=== PATIENT | female | born 1940 ===

== ENCOUNTER 2016-10-08 18:33 | Inpatient (IN) | payer MEDICARE, MEDICAID ==
[2016-10-08] MEDS ORDERED: Barium Sulfate Susp 2.1% w/v, 2.0% w/w 450 mL Bottle PO ONE ×3 (19:48)
--- NOTE | 2016-10-08 20:27 | ED PDOC ---
HPI: General Adult Time Seen by Provider: 10/08/16 19:18 Chief Complaint (Nursing): Abdominal Pain Chief Complaint (Provider): Abdominal Pain History Per: Patient History/Exam Limitations: no limitations Onset/Duration Of Symptoms: Days (x4) Current Symptoms Are (Timing): Still Present Additional Complaint(s): 19:18 Delaney Wilhelm is a 76 year old female with a history of IBS, diverticulitis , hypertension, diabetes, high cholesterol, vertigo, and anemia that presents to the ED with a chief complaint of left-sided abdominal pain that radiates to her entire abdomen that she had been experiencing for the last four days, as well as diarrhea that is both bloody and mucus that she has been experiencing for the past three days. She states that she typically usually the bathroom between 4-5 times every day, and that she has had similar episodes that typically only last for a couple of days for the past few months. However, this episode has been significantly worse. Her associated symptoms include lightheadedness, weakness, nausea, loss of appetite, and chills, but denies any fever, vomiting, or urinary symptoms. PMD: Colby Reardon Director Of Planning: Dr. Wilson Past Medical History Reviewed: Historical Data, Nursing Documentation, Vital Signs Vital Signs: Last Vital Signs Temp 98.4 F 10/09/16 17:00 Pulse 82 10/09/16 17:00 Resp 20 10/09/16 17:00 BP 126/66 10/09/16 17:00 Pulse Ox 100 10/09/16 17:00 - Medical History PMH: Anxiety, Arthritis, Asthma, COPD, Diabetes (Type II), Diverticulitis, Emphysema, Gastritis, GERD, HTN, Hypercholesterolemia, Migraine, Osteoporosis Denies: Chronic Kidney Disease - Surgical History Surgical History: Cholecystectomy, - Family History Family History: States: Unknown Family Hx - Home Medications Home Medications: Ambulatory Orders Medication Instructions Recorded Albuterol 0.083% [Albuterol 3 ml IH TID 02/13/16 Sulfate 3 Ml] Alprazolam [Xanax] 0.5 mg PO PRN PRN 02/13/16 Capsaicin 42.5 gm TP DAILY #1 cream..g. 02/13/16 Hyoscyamine [Hyoscyamine Sulfate] 0.125 mg PO DAILY 02/13/16 Ipratropium 0.02% [Ipratropium 0.5 mg IH TID 02/13/16 [place] 2.5 Ml] Loperamide [Imodium] 2 mg PO PRN PRN 02/13/16 Meclizine HCl [Antivert/25] 25 mg PO PRN PRN 02/13/16 Mirtazapine [Remeron] 15 mg PO DAILY 02/13/16 Nateglinide [Starlix] 60 mg PO BID 02/13/16 Ranitidine HCl [Zantac] 150 mg PO DAILY 02/13/16 Valsartan [Diovan] 80 mg PO DAILY 02/13/16 cloNIDine [clonidine HCl] 0.1 mg PO DAILY 02/13/16 - Allergies Allergies/Adverse Reactions: Allergies Allergy/AdvReac Type Severity Reaction Status Date / Time aspirin Allergy SHORTNESS Verified 02/13/16 12:33 OF BREATH azithromycin [From Zithromax] Allergy RASH Verified 02/13/16 12:33 budesonide [From Symbicort] Allergy RASH Verified 02/13/16 12:33 calcium Allergy RASH Verified 02/13/16 12:33 ciprofloxacin [From Cipro] Allergy ITCHING Verified 02/13/16 12:33 ciprofloxacin HCl Allergy ITCHING Verified 02/13/16 12:33 [From Cipro] codeine Allergy SHORTNESS Verified 02/13/16 12:33 OF BREATH formoterol fumarate Allergy RASH Verified 02/13/16 12:33 [From Symbicort] iodine Allergy RASH Verified 02/13/16 12:33 latex Allergy RASH Verified 02/13/16 12:33 lidocaine Allergy unknown Verified 02/13/16 12:45 Penicillins Allergy RASH Verified 02/13/16 12:33 Sulfa (Sulfonamide Allergy RASH Verified 02/13/16 12:33 Antibiotics) tetracycline Allergy RASH Verified 02/13/16 12:33 erthromycin Allergy RASH Uncoded 03/20/14 15:48 Review of Systems Constitutional: Positive for: Chills, Weakness. Negative for: Fever Cardiovascular: Positive for: Light Headedness Gastrointestinal: Positive for: Nausea, Abdominal Pain (x4 days, left-sided, spread to entire abdomen), Diarrhea (x3 days). Negative for: Vomiting Genitourinary Female: Negative for: Dysuria, Frequency, Hematuria Neurological: Positive for: Dizziness Physical Exam - Reviewed Nursing Documentation Reviewed: Yes Vital Signs Reviewed: Yes - Physical Exam Appears: Positive for: Non-toxic, Uncomfortable (Patient is very tired appearing ) Head Exam: Positive for: ATRAUMATIC, NORMOCEPHALIC Skin: Positive for: Warm, Dry, Pallor ENT: Positive for: Other (dry mucous membranes ) Cardiovascular/Chest: Positive for: Regular Rate, Rhythm. Negative for: Murmur Respiratory: Positive for: Normal Breath Sounds. Negative for: Wheezing Gastrointestinal/Abdominal: Positive for: Soft, Tenderness (diffusely tender). Negative for: Mass, Distended, Guarding, Rebound Neurologic/Psych: Positive for: Alert, Oriented - Laboratory Results Result Diagrams: 10/09/16 05:30 10/09/16 05:30 - ECG O2 Sat by Pulse Oximetry: 99 (RA) Pulse Ox Interpretation: Normal Medical Decision Making Medical Decision Makin:48 Initial Impression: Abdominal Pain/Diarrhea ddx include Colitis vs. Diverticulitis vs. Enteritis vs. Dehydration vs. Eelectrolyte Abnormality Initial Plan: * CMP * CBC * PT * PTT * Lipase * Magnesium * Phosphorous * Troponin * Glucose, Blood, POC * Urine culture * Urine dipstick * Urinalysis * Ova and Parasite * Stool Culture * C Diff Toxin * Type and Screen * EKG * CT Scan A/P with PO contrast 19:58 Patient is to be admitted to ED Obs secondary to extensive ED workup. Scribe Attestation: Documented by Sybil Joe, acting as a scribe for Christiana Hidalgo MD. Provider Scribe Attestation: All medical record entries made by the Scribe were at my direction and personally dictated by me. I have reviewed the chart and agree that the record accurately reflects my personal performance of the history, physical exam, medical decision making, and the department course for this patient. I have also personally directed, reviewed, and agree with the discharge instructions and disposition. ED OBSERVATION Time of observation admission: 19:58 - Observation admission statement Patient is being placed in observation because:: Patient has been placed in ED Obs secondary to extensive ED workup. - Progress Note Progress Note: EXAM: CT Abdomen and Pelvis Without Intravenous Contrast CLINICAL HISTORY: 76 years old, female; Pain and signs and symptoms; Other: Diarrhea; Abdominal pain; Generalized; Prior surgery; Surgery date: 6+ months; Surgery type: 2 c-sections. Gb removed; Additional info: Abd pain. Sent e. D. Doc. With request TECHNIQUE: Axial computed tomography images of the abdomen and pelvis without intravenous contrast. This CT exam was performed using one or more of the following dose reduction techniques: automated exposure control, adjustment of the mA and/or kV according to patient size, and/ or use of iterative reconstruction technique. Coronal and sagittal reformatted images were created and reviewed. EXAM DATE/TIME: Exam ordered 10/08/2016 7:48 PM COMPARISON: CT - ABD PELVIS PO CONTRAST ONLY 04/30/2015 4:05:29 PM FINDINGS: Lower thorax: Lung bases are clear stable mild nodularity and cystic change in the lingula. Air in the esophagus in keeping with reflux. Small hiatus hernia. ABDOMEN: Liver: Unremarkable. Gallbladder and bile ducts: Status post cholecystectomy. No ductal dilation. Pancreas: Unremarkable. No ductal dilation. Spleen: Unremarkable. No splenomegaly. Adrenals: Unremarkable. No mass. Kidneys and ureters: No ureteral stones are seen noting that punctate stones or noncalcified stones may not be well seen on CT. Stomach and bowel: No abdominal wall hernias containing bowel. Oral contrast was administered. Oral contrast has passed to the rectum, there are no findings to suggest bowel obstruction. There is, allowing for partial collapse, likely wall thickening of the colon, particularly the sigmoid, see for example series 3 image 96. Findings suggest a colitis, diverticulitis may present in a similar fashion, colitis is favored noting suggestion of some possible wall thickening in the more proximal colon. Appendix: No findings to suggest acute appendicitis. PELVIS: Bladder: Unremarkable. No stones. Reproductive: Reproductive. There is redemonstration of a hyperdense cystic finding in the left labial region series 3 image 126, this is minimally increased in size since the study of approximately one and one half years previous. Physical examination correlation is recommended. There is a 16 mm cystic finding in the left ovary coronal image 60, and this previously measured 13 mm. This measures simple fluid density. Annual followup is recommended in this postmenopausal patient, as per guidelines for a simple cyst a greater than 1 cm in a postmenopausal patient , unless there has been previous demonstration that this is not a simple cyst, noted limitations of the present study which is noncontrast and the generally limited detail of CT for the adnexa. ABDOMEN and PELVIS: Intraperitoneal space: No free air. No significant fluid collection. Bones/joints: Bony structures with no acute fractures. No dislocation. Soft tissues: See above. Vasculature: Unremarkable. No abdominal aortic aneurysm. Lymph nodes: There are multiple mesenteric nodes although they do not meet size criteria for pathologic enlargement. Other findings: There is comparison to previous CT dated April 30, 2015. IMPRESSION: Wall thickening particularly of the sigmoid colon, suggestion of colitis although diverticulitis might also present in this fashion. Neoplasm cannot be excluded. A prominent sigmoid diverticulum series 3 image 95 is without change from study of 2015 series 3 image 114. No free air. No ascites. Reproductive as above, current guidelines suggest 1 year followup for simple cyst greater than 1 cm in the adnexa of a postmenopausal female, please note that detail of anatomy is limited on this study which is performed without intravenous contrast . Redemonstration of complex finding in the left labia as above. The absence of intravenous contrast greatly limits evaluation of the parenchymal organs. Thank you for allowing us to participate in the care of your patient. Dictated and Authenticated by: Kitty Casper MD 10/08/2016 11:16 PM Eastern Time ([place] & [place]) Pt to be hospitalized under Dr Reardon for further management. Disposition - Clinical Impression Clinical Impression: Colitis Counseled Patient/Family Regarding: Studies Performed, Diagnosis - Disposition Disposition Time: 20:00 Condition: SERIOUS - Pt Status Changed To: Hospital Disposition Of: Inpatient - Admit Certification Admit to Inpatient:: After my assessment, the patient will require hospitalization for at least two midnights. This is because of the severity of symptoms shown, intensity of services needed, and/or the medical risk in this patient being treated as an outpatient. - POA Present On Arrival: None
[2016-10-08 21:09] LABS: BASO % 0.3 % (0.0-2.0); EOS % 0.3 % (0.0-4.0); HEMATOCRIT 37.9 % (34.0-47.0); LYMPH # 1.1 K/uL (1.0-4.3); LYMPH % 20.1 % (20.0-40.0); MEAN CELL VOLUME 83.9 fl (81.0-99.0); MEAN CORPUSCULAR HEMOGLOBIN 28.2 pg (27.0-31.0); MEAN CORPUSCULAR HGB CONC 33.6 g/dL (33.0-37.0); MONO # 0.3 K/uL (0.0-0.8); MONO % 4.6 % (0.0-10.0); NEUT # 4.2 K/uL (1.8-7.0); NEUT % 74.7 % (50.0-75.0); NRBC % 0.2 % (0.0-0.0); RBC URINE 2 /hpf (0-3); RED CELL DISTRIBUTION WIDTH 13.1 % (11.5-14.5); URINE BACTERIA RARE (<OCC); URINE BILIRUBIN NEGATIVE (NEGATIVE); URINE BLOOD MODERATE (NEGATIVE); URINE GLUCOSE (UA) NEG (Normal); URINE KETONE NEGATIVE (NEGATIVE); URINE LEUKOCYTE ESTERASE NEG Leu/uL (Negative); URINE PROTEIN NEGATIVE (NEGATIVE); URINE UROBILINOGEN 0.2-1.0 mg/dL (0.2-1.0); WBC URINE 1 /hpf (0-5); WHITE BLOOD COUNT 5.6 K/uL (4.8-10.8)
[2016-10-08 21:10] LABS: URINE COLOR YELLOW (YELLOW)
[2016-10-08 21:25] LABS: ALB/GLOB RATIO 1.3 (1.0-2.1); ALKALINE PHOSPHATASE 63 U/L (38-126); ALT/SGPT 37 U/L (9-52); AST/SGOT 34 U/L (14-36); BILIRUBIN,TOTAL 0.8 mg/dl (0.2-1.3); BLOOD UREA NITROGEN 7 mg/dl (7-17); CALCIUM 9.2 mg/dL (8.4-10.2); CARBON DIOXIDE 25 mmol/L (22-30); CHLORIDE 106 mmol/L (98-107); GFR AFRICAN-AMERICAN > 60; GLUCOSE,RANDOM 134 mg/dL (65-105); LIPASE 68 U/L (23-300); PHOSPHOROUS 3.4 mg/dl (2.5-4.5); POTASSIUM 3.5 MMOL/L (3.6-5.0); SODIUM 137 mmol/l (132-148); TOTAL PROTEIN 7.3 G/DL (6.3-8.2)
[2016-10-08 21:26] LABS: PARTIAL THROMBOPLASTIN TIME 25.2 SECONDS (23.3-32.5)
--- NOTE | 2016-10-08 23:17 | CT ---
EXAM: CT Abdomen and Pelvis Without Intravenous Contrast CLINICAL HISTORY: 76 years old, female; Pain and signs and symptoms; Other: Diarrhea; Abdominal pain; Generalized; Prior surgery; Surgery date: 6+ months; Surgery type: 2 c-sections. Gb removed; Additional info: Abd pain. Sent e. D. Doc. With request TECHNIQUE: Axial computed tomography images of the abdomen and pelvis without intravenous contrast. This CT exam was performed using one or more of the following dose reduction techniques: automated exposure control, adjustment of the mA and/or kV according to patient size, and/or use of iterative reconstruction technique. Coronal and sagittal reformatted images were created and reviewed. EXAM DATE/TIME: Exam ordered 10/08/2016 7:48 PM COMPARISON: CT - ABD PELVIS PO CONTRAST ONLY 04/30/2015 4:05:29 PM FINDINGS: Lower thorax: Lung bases are clear stable mild nodularity and cystic change in the lingula. Air in the esophagus in keeping with reflux. Small hiatus hernia. ABDOMEN: Liver: Unremarkable. Gallbladder and bile ducts: Status post cholecystectomy. No ductal dilation. Pancreas: Unremarkable. No ductal dilation. Spleen: Unremarkable. No splenomegaly. Adrenals: Unremarkable. No mass. Kidneys and ureters: No ureteral stones are seen noting that punctate stones or noncalcified stones may not be well seen on CT. Stomach and bowel: No abdominal wall hernias containing bowel. Oral contrast was administered. Oral contrast has passed to the rectum, there are no findings to suggest bowel obstruction. There is, allowing for partial collapse, likely wall thickening of the colon, particularly the sigmoid, see for example series 3 image 96. Findings suggest a colitis, diverticulitis may present in a similar fashion, colitis is favored noting suggestion of some possible wall thickening in the more proximal colon. Appendix: No findings to suggest acute appendicitis. PELVIS: Bladder: Unremarkable. No stones. Reproductive: Reproductive. There is redemonstration of a hyperdense cystic finding in the left labial region series 3 image 126, this is minimally increased in size since the study of approximately one and one half years previous. Physical examination correlation is recommended. There is a 16 mm cystic finding in the left ovary coronal image 60, and this previously measured 13 mm. This measures simple fluid density. Annual followup is recommended in this postmenopausal patient, as per guidelines for a simple cyst a greater than 1 cm in a postmenopausal patient, unless there has been previous demonstration that this is not a simple cyst, noted limitations of the present study which is noncontrast and the generally limited detail of CT for the adnexa. ABDOMEN and PELVIS: Intraperitoneal space: No free air. No significant fluid collection. Bones/joints: Bony structures with no acute fractures. No dislocation. Soft tissues: See above. Vasculature: Unremarkable. No abdominal aortic aneurysm. Lymph nodes: There are multiple mesenteric nodes although they do not meet size criteria for pathologic enlargement. Other findings: There is comparison to previous CT dated April 30, 2015. IMPRESSION: Wall thickening particularly of the sigmoid colon, suggestion of colitis although diverticulitis might also present in this fashion. Neoplasm cannot be excluded. A prominent sigmoid diverticulum series 3 image 95 is without change from study of 2015 series 3 image 114. No free air. No ascites. Reproductive as above, current guidelines suggest 1 year followup for simple cyst greater than 1 cm in the adnexa of a postmenopausal female, please note that detail of anatomy is limited on this study which is performed without intravenous contrast . Redemonstration of complex finding in the left labia as above. The absence of intravenous contrast greatly limits evaluation of the parenchymal organs.
[2016-10-08] MEDS ORDERED: metroNIDAZOLE 500mg/100ml NS 100 ML IV STA (23:56)
[2016-10-09] MEDS ORDERED: metroNIDAZOLE 500mg/100ml NS 100 ML IVPB ONE (00:09)
[2016-10-09] MEDS: Sodium Chloride 0.45% 1,000 ML IV SCH ×2 (03:09→16:19)
[2016-10-09] MEDS: Dextrose 5%/0.45% NS 1,000 ML IV SCH ×2 (03:19→16:17)
[2016-10-09 07:45] LABS: HEMATOCRIT 35.4 % (34.0-47.0); MEAN CELL VOLUME 82.7 fl (81.0-99.0); MEAN CORPUSCULAR HEMOGLOBIN 28.6 pg (27.0-31.0); MEAN CORPUSCULAR HGB CONC 34.6 g/dL (33.0-37.0); RED CELL DISTRIBUTION WIDTH 13.2 % (11.5-14.5); WHITE BLOOD COUNT 5.1 K/uL (4.8-10.8)
[2016-10-09 08:35] LABS: ALB/GLOB RATIO 1.3 (1.0-2.1); ALKALINE PHOSPHATASE 52 U/L (38-126); ALT/SGPT 30 U/L (9-52); AST/SGOT 32 U/L (14-36); BILIRUBIN,TOTAL 0.6 mg/dl (0.2-1.3); BLOOD UREA NITROGEN 6 mg/dl (7-17); CALCIUM 8.9 mg/dL (8.4-10.2); CARBON DIOXIDE 29 mmol/L (22-30); CHLORIDE 104 mmol/L (98-107); CHOLESTEROL 193 mg/dL (0-199); GFR AFRICAN-AMERICAN > 60; GLUCOSE,RANDOM 75 mg/dL (65-105); POTASSIUM 3.1 MMOL/L (3.6-5.0); SODIUM 142 mmol/l (132-148); TOTAL PROTEIN 6.7 G/DL (6.3-8.2)
[2016-10-09 08:50] LABS: T4 10.7 ug/dl (5.5-11.0)
[2016-10-09] MEDS: Albuterol 0.083% Inhal Sol (2.5 mg/3 mL) UD IH SCH ×3 (08:56→19:16)
[2016-10-09] MEDS: Ipratropium 0.02% Inhal Soln (0.5 mg/2.5 ml) UD IH SCH ×3 (08:57→19:15)
[2016-10-09] MEDS ORDERED: Ipratropium 0.02% Inhal Soln (0.5 mg/2.5 ml) UD IH SCH (09:00)
[2016-10-09 09:03] LABS: THYROID STIMULATING HORMONE 1.58 mIU/ML (0.46-4.68)
[2016-10-09] MEDS: metroNIDAZOLE 500mg/100ml NS 100 ML IVPB SCH ×2 (09:53→17:02)
--- NOTE | 2016-10-09 11:22 | CARD ---
APPROVED REPORT EKG Measurement Heart [id number] <Conclusion> Normal sinus rhythm Minimal voltage criteria for LVH, may be normal variant Borderline ECG
--- NOTE | 2016-10-09 20:06 | CP.PCM.HP ---
History of Present Illness - History of Present Illness History of Present Illness: CC: Abdominal pain. 76 y/o F, came to ER [facility] to be evaluated for abdominal pain x several days, pain has been getting progressively worse x 4 days [employer]. 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 Mild relief with BM. Worsening symptoms: Weakness, lightheadedness, dizziness, chills, no fever. Aggravating factor: Unable to eat, Lost of appetite, underweight BMI 18.4 Pt denied: Fever, vomiting, syncope, urinary symptoms, CP, sick contact, recent travel. PMHx: COPD, Asthma, Emphysema, DMII, HTN, Hypercholesterolemia, GERD, IBS, Anxiety, Vertigo, Anemia, Hx Diverticulitis, O/A, Osteoporosis, Migraine. CT Abdomen/Pelv showed: Suggestion of Colitis vs Diverticulitis, Neoplasm not be excluded. EKG: Normal sinus rhythm Present on Admission - Present on Admission Any Indicators Present on Admission: No Review of Systems - Constitutional Constitutional: Chills, Weakness - EENT Eyes: Requires Corrective Lenses Ears: Other (negative) Nose/Mouth/Throat: Other (negative) - Cardiovascular Cardiovascular: Lightheadedness, Other - Respiratory Respiratory: Cough - Gastrointestinal Gastrointestinal: Abdominal Pain, Diarrhea, Loose Stools, Nausea - Genitourinary Genitourinary: Other (negative) - Musculoskeletal Musculoskeletal: Arthralgias - Integumentary Integumentary: Other (negative) - Neurological Neurological: Dizziness, Weakness - Psychiatric Psychiatric: Anxiety - Endocrine Endocrine: Other (Underweight) - Hematologic/Lymphatic Hematologic: Other (anemia.) Past Patient History - Infectious Disease Hx of Infectious Diseases: None - Past Medical History & Family History Past Medical History?: Yes Pertinent Family History: Unknown - Past Social History Smoking Status: Never Smoked Alcohol: None Drugs: Denies Home Situation {Lives}: Alone - CARDIAC Hx Cardiac Disorders: Yes Hx Hypercholesterolemia: Yes Hx Hypertension: Yes - PULMONARY Hx Respiratory Disorders: Yes Hx Asthma: Yes Hx Chronic Obstructive Pulmonary Disease (COPD): Yes Hx Emphysema: Yes - NEUROLOGICAL Hx Neurological Disorder: Yes Hx Migraine: Yes - HEENT Hx HEENT Problems: Yes Other/Comment: Uses eyeglasses - RENAL Hx Chronic Kidney Disease: No - ENDOCRINE/METABOLIC Hx Endocrine Disorders: Yes Hx Diabetes Mellitus Type 2: Yes - HEMATOLOGICAL/ONCOLOGICAL Hx Blood Disorders: Yes Hx Anemia: Yes - INTEGUMENTARY Hx Dermatological Problems: No - MUSCULOSKELETAL/RHEUMATOLOGICAL Hx Musculoskeletal Disorders: Yes Hx Arthritis: Yes Hx Osteoporosis: Yes - GASTROINTESTINAL Hx Gastrointestinal Disorders: Yes Hx Diarrhea: Yes Hx Diverticulitis: Yes Hx Gastritis: Yes Hx Gastroesophageal Reflux: Yes Hx Irritable Bowel: Yes - GENITOURINARY/GYNECOLOGICAL Hx Genitourinary Disorders: No - PSYCHIATRIC Hx Psychophysiologic Disorder: Yes Hx Anxiety: Yes - SURGICAL HISTORY Hx Surgeries: Yes Hx Cholecystectomy: Yes - ANESTHESIA Hx Anesthesia: Yes Hx Anesthesia Reactions: No Hx Malignant Hyperthermia: No Meds Allergies/Adverse Reactions: Allergies Allergy/AdvReac Type Severity Reaction Status Date / Time aspirin Allergy SHORTNESS Verified 02/13/16 12:33 OF BREATH azithromycin [From Zithromax] Allergy RASH Verified 02/13/16 12:33 budesonide [From Symbicort] Allergy RASH Verified 02/13/16 12:33 calcium Allergy RASH Verified 02/13/16 12:33 ciprofloxacin [From Cipro] Allergy ITCHING Verified 02/13/16 12:33 ciprofloxacin HCl Allergy ITCHING Verified 02/13/16 12:33 [From Cipro] codeine Allergy SHORTNESS Verified 02/13/16 12:33 OF BREATH formoterol fumarate Allergy RASH Verified 02/13/16 12:33 [From Symbicort] iodine Allergy RASH Verified 02/13/16 12:33 latex Allergy RASH Verified 02/13/16 12:33 lidocaine Allergy unknown Verified 02/13/16 12:45 Penicillins Allergy RASH Verified 02/13/16 12:33 Sulfa (Sulfonamide Allergy RASH Verified 02/13/16 12:33 Antibiotics) tetracycline Allergy RASH Verified 02/13/16 12:33 erthromycin Allergy RASH Uncoded 03/20/14 15:48 Physical Exam - Constitutional Appears: No Acute Distress, Chronically Ill - Head Exam Head Exam: NORMAL INSPECTION - Eye Exam Eye Exam: PERRL - ENT Exam ENT Exam: Normal Oropharynx - Neck Exam Neck exam: Positive for: Normal Inspection - Respiratory Exam Respiratory Exam: NORMAL BREATHING PATTERN - Cardiovascular Exam Cardiovascular Exam: REGULAR RHYTHM - GI/Abdominal Exam GI & Abdominal Exam: Normal Bowel Sounds - Extremities Exam Extremities exam: Positive for: normal inspection - Back Exam Back exam: NORMAL INSPECTION - Neurological Exam Neurological exam: Alert, Oriented x3 Additional comments: No motor sensory deficit - Psychiatric Exam Psychiatric exam: Anxious - Skin Skin Exam: Warm Results - Vital Signs Recent Vital Signs: Last Vital Signs Temp 98.4 F 10/09/16 17:00 Pulse 82 10/09/16 17:00 Resp 20 10/09/16 17:00 BP 126/66 10/09/16 17:00 Pulse Ox 99 10/09/16 18:51 reviewed Trae - Labs Result Diagrams: 10/11/16 12:15 10/11/16 12:15 Labs: Laboratory Results - last 24 hr 10/09/16 10/09/16 10/09/16 05:30 05:30 06:31 WBC 5.1 RBC 4.28 Hgb 12.3 Hct 35.4 MCV 82.7 MCH 28.6 MCHC 34.6 RDW 13.2 Plt Count 191 Sodium 142 Potassium 3.1 L Chloride 104 Carbon Dioxide 29 Anion Gap 12 BUN 6 L Creatinine 0.6 L Est GFR ( Amer) > 60 Est GFR (Non-Af Amer) > 60 POC Glucose (mg/dL) 85 Random Glucose 75 Calcium 8.9 Total Bilirubin 0.6 AST 32 ALT 30 Alkaline Phosphatase 52 Total Protein 6.7 Albumin 3.8 Globulin 2.9 Albumin/Globulin Ratio 1.3 Triglycerides 123 Cholesterol 193 LDL Cholesterol Direct 120 HDL Cholesterol 46 Thyroxine (T4) 10.7 TSH 3rd Generation 1.58 Stool Occult Blood C. difficile Ag & Toxin 10/09/16 10/09/16 10/09/16 10:30 10:47 11:30 WBC RBC Hgb Hct MCV MCH MCHC RDW Plt Count Sodium Potassium Chloride Carbon Dioxide Anion Gap BUN Creatinine Est GFR ( Amer) Est GFR (Non-Af Amer) POC Glucose (mg/dL) 139 H Random Glucose Calcium Total Bilirubin AST ALT Alkaline Phosphatase Total Protein Albumin Globulin Albumin/Globulin Ratio Triglycerides Cholesterol LDL Cholesterol Direct HDL Cholesterol Thyroxine (T4) TSH 3rd Generation Stool Occult Blood Positive H C. difficile Ag & Toxin Positive H 10/09/16 15:41 WBC RBC Hgb Hct MCV MCH MCHC RDW Plt Count Sodium Potassium Chloride Carbon Dioxide Anion Gap BUN Creatinine Est GFR ( Amer) Est GFR (Non-Af Amer) POC Glucose (mg/dL) 105 Random Glucose Calcium Total Bilirubin AST ALT Alkaline Phosphatase Total Protein Albumin Globulin Albumin/Globulin Ratio Triglycerides Cholesterol LDL Cholesterol Direct HDL Cholesterol Thyroxine (T4) TSH 3rd Generation Stool Occult Blood C. difficile Ag & Toxin reviewed J.P. - EKG Data EKG comments: reviewed J.P. - Imaging and Cardiology CT scan - abdomen Status: Report reviewed by me (Trae) CT scan - pelvis Status: Report reviewed by me (Trae) Assessment & Plan (1) Abdominal pain Status: Acute Priority: High (2) Colitis Status: Acute Priority: High Comment: vs acute Diverticulitis, ruled out malignancy. (3) IBS (irritable bowel syndrome) Status: Chronic Priority: High (4) Anxiety Status: Chronic Priority: Medium (5) COPD (chronic obstructive pulmonary disease) Status: Chronic Priority: Medium (6) DMII (diabetes mellitus, type 2) Status: Chronic Priority: Medium (7) Hypertension Status: Chronic Priority: Medium - Assessment and Plan (Free Text) Plan: F/U Blood C-S, Stool C-S, Ova & Parasite, continue Flagyl, Protonix, Albuterol, Atrovent, Tylenol and rest of Tx. F/U GI consult. - Date & Time Date: 10/09/16 Time: 14:30
[2016-10-09] MEDS ORDERED: guaiFENesin DM 200 mg-20 mg/10 ml UD PO PRN (20:20)
--- NOTE | 2016-10-09 21:04 | CON ---
DATE: 10/09/2016 REFERRING PHYSICIAN: Colby Reardon M.D. HISTORY OF PRESENT ILLNESS: The patient is a 76-year-old female with a history of diabetes mellitus, hypertension, hypercholesterolemia, diverticulitis, IBSD, admitted with a several day hist ory of lower abdominal pain associated with diarrhea, at times blood tinged. A CT of the abdomen don e upon evaluation in the Emergency Room showed the possibility of mild colitis versus diverticulitis. Underlying malignancy also could not be entirely excluded. The patient at present is doing better. Denies abdominal pain, fever or chills, nausea or vomiting and has been started on IV Flagyl. PAST MEDICAL HISTORY: As stated before. PAST SURGICAL HISTORY: Positive for cholecystectomy. SOCIAL HISTORY: No ETOH, no IVDA, no tobacco use. FAMILY HISTORY: Noncontributory. REVIEW OF SYSTEMS: All systems were reviewed and negative except for pertinent positives in the hist ory of present illness. LABORATORY DATA: Reviewed. White count remains within normal limits. No left shift appreciated. C hemistry is unremarkable. PHYSICAL EXAMINATION: GENERAL: She is awake, alert, in no apparent distress. VITAL SIGNS: Stable, afebrile. HEENT: Normocephalic, atraumatic. Extraocular muscles are intact. Pupils equal, react to light and accommodation. NECK: No JVD, no neck masses. HEART: Auscultation of the heart, S1 and S2 with no murmur or gallop. LUNGS: Clear. ABDOMEN: Soft and nontender. Bowel sounds are positive. There is no guarding, no rebound. EXTREMITIES: No edema, cyanosis or clubbing. RECTAL: Deferred. NEUROLOGIC: Cranial nerves II-XII are intact. There are no focal sensory deficits. IMPRESSION: Acute mild colitis versus mild diverticulitis, rule out underlying malignancy. I agree with present management. Will add gram-negative , but the PATIENT IS ALLERGIC TO MULTIPLE MEDIC ATIONS. ID could be consulted to add gram-negative to Flagyl and the patient in my opinion can be discharged on a 10-day course of on p.o. antibiotics pending stool culture. I will follow up in the office as an outpatient and schedule a colonoscopy as an outpatient. Thank you for allowing me to participate in the care of your patient. I will sign off and see the larisa abrams at your request as needed. Giovani Wilson MD cc: 97 TT: 10/09/2016 21:03:51 Confirmation # [id number] Dictation # [id number]
[2016-10-10] MEDS: metroNIDAZOLE 500mg/100ml NS 100 ML IVPB SCH ×3 (01:13→16:16)
[2016-10-10] MEDS: Albuterol 0.083% Inhal Sol (2.5 mg/3 mL) UD IH SCH ×3 (08:18→19:27)
[2016-10-10] MEDS: Ipratropium 0.02% Inhal Soln (0.5 mg/2.5 ml) UD IH SCH ×3 (08:19→19:27)
--- NOTE | 2016-10-10 16:49 | CP.PCM.PN ---
Subjective - Date & Time of Evaluation Date of Evaluation: 10/10/16 - Subjective Subjective: F/U Pt with no abdominal pain, no diarrhea, having SOB last night. Objective - Vital Signs/Intake and Output Vital Signs (last 24 hours): Temp Pulse Resp BP Pulse Ox 97.7 F 74 18 137/66 100 10/10/16 07:52 10/10/16 07:52 10/10/16 07:52 10/10/16 07:52 10/10/16 07:52 - Medications Medications: Current Medications Acetaminophen (Tylenol 325mg Tab) 650 mg PO Q4 PRN PRN Reason: Pain, Mild (1-3) Last Admin: 10/10/16 06:56 Dose: 650 mg Albuterol Sulfate (Albuterol 0.083% Inhal Tila (2.5 Mg/3 Ml) Ud) 2.5 mg IH TID [facility] Last Admin: 10/10/16 13:27 Dose: 2.5 mg Alprazolam (Xanax) 0.5 mg PO BID [facility] Last Admin: 10/10/16 16:15 Dose: 0.5 mg Guaifenesin/Dextromethorphan (Robitussin Dm) 10 ml PO Q4 PRN PRN Reason: Cough Metronidazole (Flagyl 500mg/100ml Ns) 100 mls @ 100 mls/hr IVPB Q8 [facility] Last Admin: 10/10/16 16:16 Dose: 100 mls/hr Ipratropium [place] (Atrovent) 0.5 mg IH RTID [facility] Last Admin: 10/10/16 13:28 Dose: 0.5 mg Pantoprazole Sodium (Protonix Inj) 40 mg IVP DAILY [facility] Last Admin: 10/10/16 08:48 Dose: 40 mg Valsartan (Diovan) 80 mg PO BID [facility] Last Admin: 10/10/16 16:16 Dose: 80 mg - Labs Labs: 10/09/16 05:30 10/09/16 05:30 PT 10.5 SECONDS (9.6-11.2) 10/08/16 20:55 INR 1.01 (0.92-1.08) 10/08/16 20:55 APTT 25.2 SECONDS (23.3-32.5) 10/08/16 20:55 - Constitutional Appears: No Acute Distress, Chronically Ill - Eye Exam Eye Exam: PERRL - ENT Exam ENT Exam: Normal Oropharynx - Neck Exam Neck Exam: Normal Inspection - Respiratory Exam Respiratory Exam: Decreased Breath Sounds (at bases) - Cardiovascular Exam Cardiovascular Exam: REGULAR RHYTHM - GI/Abdominal Exam GI & Abdominal Exam: Soft, Normal Bowel Sounds - Extremities Exam Extremities Exam: Normal Inspection - Back Exam Back Exam: NORMAL INSPECTION - Neurological Exam Neurological Exam: Alert, Oriented x3. absent: Motor Sensory Deficit - Psychiatric Exam Psychiatric exam: Anxious - Skin Skin Exam: Warm Assessment and Plan (1) Colitis Status: Acute (2) Abdominal pain Status: Acute - Assessment and Plan (Free Text) Plan: Increase to full liquid diet, continue Duoneb, closed f/u in AM.
[2016-10-11] MEDS: metroNIDAZOLE 500mg/100ml NS 100 ML IVPB SCH ×3 (00:18→16:03)
[2016-10-11] MEDS: Ipratropium 0.02% Inhal Soln (0.5 mg/2.5 ml) UD IH SCH ×3 (08:12→19:28)
[2016-10-11] MEDS: Albuterol 0.083% Inhal Sol (2.5 mg/3 mL) UD IH SCH ×3 (08:12→19:28)
[2016-10-11] MEDS: Hyoscyamine 0.125 mg SL Tab PO SCH (12:17)
[2016-10-11 12:46] LABS: BASO % 0.6 % (0.0-2.0); EOS % 0.8 % (0.0-4.0); HEMATOCRIT 36.7 % (34.0-47.0); LYMPH # 1.1 K/uL (1.0-4.3); LYMPH % 25.6 % (20.0-40.0); MEAN CELL VOLUME 83.3 fl (81.0-99.0); MEAN CORPUSCULAR HEMOGLOBIN 28.6 pg (27.0-31.0); MEAN CORPUSCULAR HGB CONC 34.3 g/dL (33.0-37.0); MEAN PLATELET VOLUME 6.9 fl (7.2-11.7); MONO # 0.2 K/uL (0.0-0.8); MONO % 5.7 % (0.0-10.0); NEUT # 2.9 K/uL (1.8-7.0); NEUT % 67.3 % (50.0-75.0); NRBC % 0.1 % (0.0-0.0); RED CELL DISTRIBUTION WIDTH 13.4 % (11.5-14.5); WHITE BLOOD COUNT 4.3 K/uL (4.8-10.8)
[2016-10-11 13:01] LABS: BLOOD UREA NITROGEN 3 mg/dl (7-17); CALCIUM 9.2 mg/dL (8.4-10.2); CARBON DIOXIDE 27 mmol/L (22-30); CHLORIDE 108 mmol/L (98-107); GFR AFRICAN-AMERICAN > 60; GLUCOSE,RANDOM 86 mg/dL (65-105); POTASSIUM 3.2 MMOL/L (3.6-5.0); SODIUM 139 mmol/l (132-148)
[2016-10-11] MEDS ORDERED: Potassium Chloride 20 mEq/15 ml LIQ UD PO ONE (14:30)
--- NOTE | 2016-10-11 16:19 | CP.PCM.PN ---
Subjective - Date & Time of Evaluation Date of Evaluation: 10/11/16 Time of Evaluation: 11:40 - Subjective Subjective: F/U Abdominal pain/Colitis. C/O of abdominal pain intermittent with diarrhea, cough on and off. Objective - Vital Signs/Intake and Output Vital Signs (last 24 hours): Temp Pulse Resp BP Pulse Ox 97.9 F 79 18 129/71 99 10/11/16 08:23 10/11/16 08:23 10/11/16 08:23 10/11/16 08:23 10/11/16 08:23 - Medications Medications: Current Medications Acetaminophen (Tylenol 325mg Tab) 650 mg PO Q4 PRN PRN Reason: Pain, Mild (1-3) Last Admin: 10/10/16 06:56 Dose: 650 mg Albuterol Sulfate (Albuterol 0.083% Inhal Tila (2.5 Mg/3 Ml) Ud) 2.5 mg IH TID [facility] Last Admin: 10/11/16 14:15 Dose: 2.5 mg Alprazolam (Xanax) 0.5 mg PO BID [facility] Last Admin: 10/11/16 16:09 Dose: 0.5 mg Guaifenesin/Dextromethorphan (Robitussin Dm) 10 ml PO Q4 PRN PRN Reason: Cough Hyoscyamine (Levsin) 0.125 mg PO DAILY [facility] Last Admin: 10/11/16 12:17 Dose: 0.125 mg Metronidazole (Flagyl 500mg/100ml Ns) 100 mls @ 100 mls/hr IVPB Q8 [facility] Last Admin: 10/11/16 16:03 Dose: 100 mls/hr Ipratropium [place] (Atrovent) 0.5 mg IH RTID [facility] Last Admin: 10/11/16 14:15 Dose: 0.5 mg Pantoprazole Sodium (Protonix Inj) 40 mg IVP DAILY [facility] Last Admin: 10/11/16 09:26 Dose: 40 mg Valsartan (Diovan) 80 mg PO BID [facility] Last Admin: 10/11/16 16:03 Dose: 80 mg - Labs Labs: 10/11/16 12:15 10/11/16 12:15 PT 10.5 SECONDS (9.6-11.2) 10/08/16 20:55 INR 1.01 (0.92-1.08) 10/08/16 20:55 APTT 25.2 SECONDS (23.3-32.5) 10/08/16 20:55 - Constitutional Appears: No Acute Distress - Head Exam Head Exam: NORMAL INSPECTION - Eye Exam Eye Exam: PERRL - ENT Exam ENT Exam: Normal Oropharynx - Neck Exam Neck Exam: Normal Inspection - Respiratory Exam Respiratory Exam: Clear to Ausculation Bilateral - Cardiovascular Exam Cardiovascular Exam: REGULAR RHYTHM - GI/Abdominal Exam GI & Abdominal Exam: Soft, Normal Bowel Sounds - Extremities Exam Extremities Exam: Normal Inspection - Back Exam Back Exam: NORMAL INSPECTION - Neurological Exam Neurological Exam: Alert, Oriented x3. absent: Motor Sensory Deficit - Psychiatric Exam Psychiatric exam: Anxious - Skin Skin Exam: Warm Assessment and Plan (1) Abdominal pain Status: Acute (2) Colitis Status: Acute (3) IBS (irritable bowel syndrome) Status: Chronic (4) Anxiety Status: Chronic (5) COPD (chronic obstructive pulmonary disease) Status: Chronic (6) DMII (diabetes mellitus, type 2) Status: Chronic (7) Hypertension Status: Chronic - Assessment and Plan (Free Text) Plan: Continue full liquid diet and rest of Tx.
[2016-10-11] MEDS ORDERED: Promethazine DM 12.5 mg-30 mg/10 ml Syrup PO PRN (22:59)
[2016-10-12] MEDS: metroNIDAZOLE 500mg/100ml NS 100 ML IVPB SCH ×2 (01:03→10:03)
[2016-10-12 07:44] LABS: BLOOD UREA NITROGEN 3 mg/dl (7-17); CALCIUM 9.1 mg/dL (8.4-10.2); CARBON DIOXIDE 25 mmol/L (22-30); CHLORIDE 107 mmol/L (98-107); GFR AFRICAN-AMERICAN > 60; GLUCOSE,RANDOM 116 mg/dL (65-105); POTASSIUM 3.4 MMOL/L (3.6-5.0); SODIUM 143 mmol/l (132-148)
[2016-10-12] MEDS: Albuterol 0.083% Inhal Sol (2.5 mg/3 mL) UD IH SCH ×3 (07:44→13:41)
[2016-10-12] MEDS: Ipratropium 0.02% Inhal Soln (0.5 mg/2.5 ml) UD IH SCH ×2 (07:44→13:41)
[2016-10-12] MEDS: Hyoscyamine 0.125 mg SL Tab PO SCH (10:04)
[2016-10-12] MEDS ORDERED: Potassium Chloride 40 mEq/30 ml LIQ UD PO ONE (11:01)
[2016-10-12] MEDS ORDERED: Potassium Chloride 20 mEq/15 ml LIQ UD PO ONE (11:30)
[2016-10-12] MEDS ORDERED: Dextrose 5%/0.45% NS 1,000 ML IV SCH (12:15)
--- NOTE | 2016-10-12 13:30 | CP.PCM.PCO ---
Physician Communication Note - Physician Communication Note Physician Communication Note: Pt w/generalized weakness and deconditioning. Will benefit from PT and TCU
--- NOTE | 2016-10-12 14:18 | CP.PCM.PN ---
Subjective - Date & Time of Evaluation Date of Evaluation: 10/12/16 - Subjective Subjective: F/U Colitis. Pt having diarrhea, cough, no abdominal pain, generalized weakness. Objective - Vital Signs/Intake and Output Vital Signs (last 24 hours): Temp Pulse Resp BP Pulse Ox 98.4 F 90 20 129/71 98 10/12/16 08:25 10/12/16 08:25 10/12/16 08:25 10/12/16 08:25 10/12/16 08:25 - Medications Medications: Current Medications Acetaminophen (Tylenol 325mg Tab) 650 mg PO Q4 PRN PRN Reason: Pain, Mild (1-3) Last Admin: 10/10/16 06:56 Dose: 650 mg Albuterol Sulfate (Albuterol 0.083% Inhal Tila (2.5 Mg/3 Ml) Ud) 2.5 mg IH TID [facility] Last Admin: 10/12/16 13:41 Dose: Not Given Alprazolam (Xanax) 0.5 mg PO BID [facility] Last Admin: 10/12/16 09:00 Dose: 0.5 mg Guaifenesin/Dextromethorphan (Robitussin Dm) 10 ml PO Q4 PRN PRN Reason: Cough Hyoscyamine (Levsin) 0.125 mg PO DAILY [facility] Last Admin: 10/12/16 10:04 Dose: 0.125 mg Dextrose/Sodium Chloride (Dextrose 5%/0.45% Ns 1000 Ml) 1,000 mls @ 80 mls/hr IV .[id number] [facility] Stop: 10/13/16 12:03 Last Admin: 10/12/16 12:00 Dose: 80 mls/hr Ipratropium [place] (Atrovent) 0.5 mg IH RTID [facility] Last Admin: 10/12/16 13:41 Dose: 0.5 mg Metronidazole (Flagyl) 250 mg PO QID [facility] Pantoprazole Sodium (Protonix Inj) 40 mg IVP DAILY [facility] Last Admin: 10/12/16 10:05 Dose: 40 mg Promethazine HCl/Dextromethorphan (Phenergan Dm Syrup) 10 ml PO Q4 PRN PRN Reason: Cough Last Admin: 10/11/16 23:42 Dose: 10 ml Valsartan (Diovan) 80 mg PO BID [facility] Last Admin: 10/12/16 10:04 Dose: 80 mg - Labs Labs: 10/11/16 12:15 10/12/16 06:40 PT 10.5 SECONDS (9.6-11.2) 10/08/16 20:55 INR 1.01 (0.92-1.08) 10/08/16 20:55 APTT 25.2 SECONDS (23.3-32.5) 10/08/16 20:55 - Constitutional Appears: No Acute Distress - Head Exam Head Exam: NORMAL INSPECTION - Eye Exam Eye Exam: PERRL - ENT Exam ENT Exam: Normal Oropharynx - Neck Exam Neck Exam: Normal Inspection - Respiratory Exam Respiratory Exam: Decreased Breath Sounds (at bases) - Cardiovascular Exam Cardiovascular Exam: REGULAR RHYTHM - GI/Abdominal Exam GI & Abdominal Exam: Soft, Normal Bowel Sounds - Extremities Exam Extremities Exam: Normal Inspection - Back Exam Back Exam: NORMAL INSPECTION - Neurological Exam Neurological Exam: Alert, Oriented x3 Additional comments: generalized weakness. - Psychiatric Exam Psychiatric exam: Anxious - Skin Skin Exam: Warm Assessment and Plan (1) Abdominal pain Status: Acute (2) Colitis Status: Acute (3) IBS (irritable bowel syndrome) Status: Chronic (4) Anxiety Status: Chronic (5) COPD (chronic obstructive pulmonary disease) Status: Chronic (6) DMII (diabetes mellitus, type 2) Status: Chronic (7) Hypertension Status: Chronic - Assessment and Plan (Free Text) Plan: Due to generalized weakness , physical descondition will be transferred to TCU, continue Flagyl po, no available IV in the Pharmacy today.
[2016-10-12 16:17] VITALS: BP 152/73; PULSE 99; RESP 18; TEMP 97.9; O2SAT 99
[2016-10-12] MEDS ORDERED: metroNIDAZOLE 500mg/100ml NS 100 ML IVPB SCH (17:00)
== END 2016-10-12 16:00 | DRG 392 ==
LOC: H.ER 18:33 → UNDOADMOB 19:58 → H.EROBSV 19:58 → OBSVTOIN 23:44 → INTOOBSV 23:44 → H.MEDSURG1 10-09 00:45 → H.EROBSV 10-09 00:45 → OBSVTOIN 10-09 23:44 → H.EROBSV 10-09 23:44 → H.MEDSURG1 10-09 23:44 → UNDODISIN 10-12 16:00
PROVIDERS: ADMIT Internal Medicine Pulmonary Disease; ATTEND Internal Medicine Pulmonary Disease
DX: K52.9 Noninfective gastroenteritis and colitis, unspecified (principal); E11.9 Type 2 diabetes mellitus without complications; J43.9 Emphysema, unspecified; I10 Essential (primary) hypertension; E78.00 Pure hypercholesterolemia, unspecified; F41.9 Anxiety disorder, unspecified; J45.909 Unspecified asthma, uncomplicated; K21.9 Gastro-esophageal reflux disease without esophagitis; K29.70 Gastritis, unspecified, without bleeding; R53.1 Weakness; M81.0 Age-related osteoporosis without current pathological fracture; K58.9 Irritable bowel syndrome, unspecified; G43.909 Migraine, unspecified, not intractable, without status migrainosus; Z88.6 Allergy status to analgesic agent; Z88.1 Allergy status to other antibiotic agents; Z88.3 Allergy status to other anti-infective agents

== ENCOUNTER 2016-10-12 13:49 | Inpatient (IN) | payer OTHER, MEDICAID ==
[2016-10-12 16:28] VITALS: BMI 18.3
[2016-10-12] MEDS ORDERED: guaiFENesin DM 200 mg-20 mg/10 ml UD PO PRN (17:19)
[2016-10-12] MEDS ORDERED: Tuberculin 5 Units/0.1 ml Inj ID ONE (17:31)
[2016-10-12] MEDS ORDERED: Promethazine DM 12.5 mg-30 mg/10 ml Syrup PO PRN (17:56)
[2016-10-13] MEDS ORDERED: Albuterol 0.083% Inhal Sol (2.5 mg/3 mL) UD IH SCH (09:00)
[2016-10-13] MEDS ORDERED: Ipratropium 0.02% Inhal Soln (0.5 mg/2.5 ml) UD IH SCH (09:00)
[2016-10-13] MEDS ORDERED: Pantoprazole 40 mg EC Tab PO SCH (09:00)
[2016-10-13] MEDS ORDERED: Hyoscyamine 0.125 mg SL Tab PO SCH (09:00)
== END 2016-10-12 20:00 | disposition left against medical advice (07) | DRG 392 ==
LOC: H.TCU 16:28
PROVIDERS: ADMIT Internal Medicine Pulmonary Disease; ATTEND Internal Medicine Pulmonary Disease
DX: K52.9 Noninfective gastroenteritis and colitis, unspecified (principal); Z02.89 Encounter for other administrative examinations

== ENCOUNTER 2016-11-12 05:23 | Emergency (ER) | payer MEDICARE, MEDICAID ==
[2016-11-12 05:24] VITALS: BMI 18.3
[2016-11-12 05:48] VITALS: BP 130/64; PULSE 105; RESP 17; TEMP 97.9; O2SAT 100
--- NOTE | 2016-11-12 06:05 | ED PDOC ---
HPI:Nausea, Vomiting, Diarrhea Time Seen by Provider: 11/12/16 05:36 Chief Complaint (Nursing): GI Problem Chief Complaint (Provider): vomiting, diarrhea History Per: Patient History/Exam Limitations: no limitations Onset/Duration Of Symptoms: Hrs Current Symptoms Are (Timing): Still Present Have you had recent travel within the past 21 days to any of the following countries: [place], [place], [place] or [place]?: No Additional Complaint(s): 76yo female with PMHx including HTN, high cholesterol, migraine, osteoporosis, anemia, anxiety, arthritis, asthma, COPD, depression, diabetes, diverticulitis, gastritis, and GERD presents to the ED with c/o blood tinged vomiting and yellow /watery diarrhea since 299. Patient also reports constant abdominal pain x 4 days. Patient states she has been drinking orange gatorade in attempt to stay hydrated. Denies any other medical complaints. PCP: Dr. Reardon Past Medical History Reviewed: Historical Data, Nursing Documentation, Vital Signs Vital Signs: Last Vital Signs Temp 97.9 F 11/12/16 05:46 Pulse 105 H 11/12/16 05:46 Resp 17 11/12/16 05:46 BP 130/64 11/12/16 05:46 Pulse Ox 100 11/12/16 05:46 - Medical History PMH: Anemia, Anxiety, Arthritis, Asthma, COPD, Depression, Diabetes (Type II), Diverticulitis, Emphysema, Gastritis, GERD, HTN, Hypercholesterolemia, Migraine , Osteoporosis Denies: HIV, Chronic Kidney Disease - Surgical History Surgical History: Cholecystectomy, - Family History Family History: States: No Known Family Hx - Home Medications Home Medications: Ambulatory Orders Medication Instructions Recorded Albuterol 0.083% [Albuterol 0.083% 3 ml IH TID 02/13/16 Inhal Tila (2.5 mg/3 ml) UD] Alprazolam [Xanax] 0.5 mg PO PRN PRN 02/13/16 Capsaicin 42.5 gm TP DAILY #1 cream..g. 02/13/16 Hyoscyamine [Levsin] 0.125 mg PO DAILY 02/13/16 Ipratropium 0.02% [Atrovent] 0.5 mg IH TID 02/13/16 Loperamide [Imodium] 2 mg PO PRN PRN 02/13/16 Meclizine HCl [Antivert] 25 mg PO PRN PRN 02/13/16 Mirtazapine [Remeron] 15 mg PO DAILY 02/13/16 Nateglinide [Starlix] 60 mg PO BID 02/13/16 Ranitidine HCl [Zantac] 150 mg PO DAILY 02/13/16 Valsartan [Diovan] 80 mg PO DAILY 02/13/16 cloNIDine [Catapres] 0.1 mg PO DAILY 02/13/16 Promethazine DM [Phenergan DM 10 ml PO Q4 PRN dose 10/12/16 Syrup] guaiFENesin/Dextromethorphan 10 ml PO Q4 PRN 10/12/16 [Robitussin DM] metroNIDAZOLE [Flagyl] 250 mg PO QID tab 10/12/16 Ondansetron [Zofran] 4 mg PO Q8H #9 tab 11/12/16 - Allergies Allergies/Adverse Reactions: Allergies Allergy/AdvReac Type Severity Reaction Status Date / Time aspirin Allergy SHORTNESS Verified 10/12/16 16:27 OF BREATH azithromycin [From Zithromax] Allergy RASH Verified 10/12/16 16:27 budesonide [From Symbicort] Allergy RASH Verified 10/12/16 16:27 calcium Allergy RASH Verified 10/12/16 16:27 ciprofloxacin [From Cipro] Allergy ITCHING Verified 10/12/16 16:27 ciprofloxacin HCl Allergy ITCHING Verified 10/12/16 16:27 [From Cipro] codeine Allergy SHORTNESS Verified 10/12/16 16:27 OF BREATH formoterol fumarate Allergy RASH Verified 10/12/16 16:27 [From Symbicort] iodine Allergy RASH Verified 10/12/16 16:27 latex Allergy RASH Verified 10/12/16 16:27 lidocaine Allergy unknown Verified 10/12/16 16:27 Penicillins Allergy RASH Verified 10/12/16 16:27 Sulfa (Sulfonamide Allergy RASH Verified 10/12/16 16:27 Antibiotics) tetracycline Allergy RASH Verified 10/12/16 16:27 erthromycin Allergy RASH Uncoded 03/20/14 15:48 Review of Systems ROS Statement: Except As Marked, All Systems Reviewed And Found Negative Gastrointestinal: Positive for: Vomiting (blood tinged ), Abdominal Pain, Diarrhea Physical Exam - Reviewed Nursing Documentation Reviewed: Yes Vital Signs Reviewed: Yes - Physical Exam Appears: Positive for: Well, No Acute Distress Head Exam: Positive for: ATRAUMATIC, NORMAL INSPECTION, NORMOCEPHALIC Skin: Positive for: Normal Color, Warm, Dry Eye Exam: Positive for: Normal appearance, EOMI, PERRL ENT: Positive for: Normal ENT Inspection Neck: Positive for: Normal, Painless ROM, Supple Cardiovascular/Chest: Positive for: Regular Rate, Rhythm. Negative for: Murmur , Tachycardia Respiratory: Positive for: Normal Breath Sounds. Negative for: Wheezing, Respiratory Distress Gastrointestinal/Abdominal: Positive for: Soft, Tenderness (mild epigastric ). Negative for: Distended, Guarding, Rebound Back: Positive for: Normal Inspection. Negative for: L CVA Tenderness, R CVA Tenderness Extremity: Positive for: Normal ROM. Negative for: Deformity, Swelling Neurologic/Psych: Positive for: Alert, Oriented - Laboratory Results Result Diagrams: 11/12/16 06:29 11/12/16 06:29 - ECG O2 Sat by Pulse Oximetry: 100 Pulse Ox Interpretation: Normal (RA) Medical Decision Making Medical Decision Makin: Impression: vomiting and diarrhea w/ abdominal pain DDx: acute gastroenteritis vs. colitis vs. pancreatitis vs. diverticulitis Plan: Labs Zofran 4mg IV, IVF, Protonix 40mg IVP C. diff. toxin, blood culture CT A/P Type and screen reassess Patient s/o to Dr. Dias at [address], labs, re-eval. Scribe Attestation: Documented by Eliza Head acting as a scribe for Paddy Bentley MD. Provider Scribe Attestation: All medical record entries made by the Scribe were at my direction and personally dictated by me. I have reviewed the chart and agree that the record accurately reflects my personal performance of the history, physical exam, medical decision making, and the department course for this patient. I have also personally directed, reviewed, and agree with the discharge instructions and disposition. Disposition - Clinical Impression Clinical Impression: Gastroenteritis - Patient ED Disposition Is Patient to be Admitted: Transfer of Care - Disposition Referrals: Colby Reardon MD [Primary Care Provider] - Disposition: Transfer of Care Disposition Time: 07:00 Condition: IMPROVED Prescriptions: Ondansetron [Zofran] 4 mg PO Q8H #9 tab Forms: [employer] (Kinyarwanda) Print Language: GUINEAN Patient Signed Over To: Shanice Dias Handoff Comments: pending CT, labs, re-eval
[2016-11-12] MEDS ORDERED: Sodium Chloride 0.9% 1,000 ML IV STA (06:08)
[2016-11-12 06:37] LABS: BASO % 0.3 % (0.0-2.0); EOS % 0.2 % (0.0-4.0); HEMATOCRIT 44.4 % (34.0-47.0); LYMPH # 0.6 K/uL (1.0-4.3); LYMPH % 4.5 % (20.0-40.0); MEAN CORPUSCULAR HEMOGLOBIN 28.5 pg (27.0-31.0); MEAN CORPUSCULAR HGB CONC 33.9 g/dL (33.0-37.0); MEAN PLATELET VOLUME 7.7 fl (7.2-11.7); MONO # 0.7 K/uL (0.0-0.8); MONO % 5.4 % (0.0-10.0); NEUT % 89.6 % (50.0-75.0); PLATELET COUNT 236 K/uL (130-400); RED CELL DISTRIBUTION WIDTH 13.1 % (11.5-14.5); WHITE BLOOD COUNT 12.3 K/uL (4.8-10.8)
[2016-11-12 06:57] LABS: PARTIAL THROMBOPLASTIN TIME 24.1 SECONDS (23.3-32.5)
--- NOTE | 2016-11-12 07:06 | ED PDOC ---
- Laboratory Results Result Diagrams: 11/12/16 06:29 11/12/16 06:29 - ECG O2 Sat by Pulse Oximetry: 100 (RA) Pulse Ox Interpretation: Normal Medical Decision Making Medical Decision Makin:00 Patient was signed out to me by Paddy Bentley MD pending CT scan results, reevaluation of symptoms and final disposition. ~ Scribe Attestation: Documented by Ciara Mcmillan, acting as a scribe for Shanice Dias MD. Provider Scribe Attestation: All medical record entries made by the Scribe were at my direction and personally dictated by me. I have reviewed the chart and agree that the record accurately reflects my personal performance of the history, physical exam, medical decision making, and the department course for this patient. I have also personally directed, reviewed, and agree with the discharge instructions and disposition. 9.00a - patient ambulating. She is feeling better. Not vomiting. CT without acute pathology. Will discharge. Disposition Doctor Will See Patient In The: Office Counseled Patient/Family Regarding: Diagnosis, Need For Followup, Rx Given - Clinical Impression Clinical Impression: Gastroenteritis - POA Present On Arrival: None - Disposition Referrals: Cloby Reardon MD [Primary Care Provider] - Disposition: Routine/Home Disposition Time: 09:00 Condition: STABLE Prescriptions: Ondansetron [Zofran] 4 mg PO Q8H #9 tab Forms: [employer] (Prydeinig) Print Language: THAI
[2016-11-12 07:21] LABS: ALB/GLOB RATIO 1.4 (1.0-2.1); ALKALINE PHOSPHATASE 72 U/L (38-126); ALT/SGPT 27 U/L (9-52); AST/SGOT 28 U/L (14-36); BILIRUBIN,TOTAL 0.7 mg/dl (0.2-1.3); BLOOD UREA NITROGEN 11 mg/dl (7-17); CARBON DIOXIDE 27 mmol/L (22-30); CHLORIDE 104 mmol/L (98-107); GFR AFRICAN-AMERICAN > 60; GLUCOSE,RANDOM 136 mg/dL (65-105); LIPASE 77 U/L (23-300); POTASSIUM 3.6 MMOL/L (3.6-5.0); SODIUM 146 mmol/l (132-148); TOTAL PROTEIN 8.5 G/DL (6.3-8.2)
--- NOTE | 2016-11-12 08:42 | CT ---
PROCEDURE: CT Abdomen and Pelvis without intravenous contrast HISTORY: abd pain vomiting and diarrhea COMPARISON: 10/08/2016 TECHNIQUE: Without contrast.. Contrast Dose: 0 Radiation dose: Total exam DLP = 263.98 mGy-cm. This CT exam was performed using one or more of the following dose reduction techniques: Automated exposure control, adjustment of the mA and/or kV according to patient size, and/or use of iterative reconstruction technique. FINDINGS: LOWER THORAX: Unremarkable. LIVER: Unremarkable. No gross lesion or ductal dilatation. GALLBLADDER AND BILE DUCTS: Status post cholecystectomy PANCREAS: Unremarkable. No gross lesion or ductal dilatation. SPLEEN: Unremarkable. ADRENALS: Unremarkable. No mass. KIDNEYS AND URETERS: Unremarkable. No hydronephrosis. No solid mass. VASCULATURE: Unremarkable. No aortic aneurysm. BOWEL: Unremarkable. No obstruction. No gross mural thickening. APPENDIX: Not identified. No secondary findings to suggest acute appendicitis. PERITONEUM: Unremarkable. No free fluid. No free air. LYMPH NODES: There are shotty mesenteric lymph nodes, unchanged from prior CT examination, of uncertain significance. These are seen in the small bowel mesenteric and in the right lower quadrant of the abdomen. These measure up to 11 mm in greatest dimension. There is an isolated 11 mm retroperitoneal lymph node, uncertain significance. There is no pelvic lymphadenopathy. BLADDER: Unremarkable. REPRODUCTIVE: Unremarkable uterus. Left ovarian fluid density structure likely cystic, 1.3 cm greatest dimension. No significant change from prior CT of 10/08/2016. Correlation with pelvic ultrasound examination is advised. Rounded 1.1 cm high attenuation lesion in left labia likely a Bartholin's duct cyst, unchanged from several prior examinations. BONES: Thoracolumbar levoscoliosis. No fracture. OTHER FINDINGS: None. IMPRESSION: No evidence of bowel obstruction. No evidence of diverticulitis or colitis. No acute inflammatory process identified. Status post cholecystectomy. Shotty mesenteric lymph nodes uncertain significance and unchanged from 10/08/2016. Isolated 11 mm retroperitoneal lymph node, uncertain significance. This has actually decreased slightly in size from prior CT examination. 1.3 cm ovoid cystic structure in the left adnexa. Correlate with pelvic ultrasound. Probable Bartholin's duct cyst in left labia. Unchanged. Additional minor findings as above.
[2016-11-12 09:38] LABS: NEUTROPHIL 89 % (42-75); TOTAL CELLS COUNTED 100
== END 2016-11-12 09:23 | disposition home or self-care (01) ==
LOC: H.ER 05:23
DX: K52.9 Noninfective gastroenteritis and colitis, unspecified (principal); R19.7 Diarrhea, unspecified; R11.10 Vomiting, unspecified; E11.9 Type 2 diabetes mellitus without complications; E78.00 Pure hypercholesterolemia, unspecified; F32.9 Major depressive disorder, single episode, unspecified; F41.9 Anxiety disorder, unspecified; I10 Essential (primary) hypertension; J44.9 Chronic obstructive pulmonary disease, unspecified; J45.909 Unspecified asthma, uncomplicated; K21.9 Gastro-esophageal reflux disease without esophagitis; M81.0 Age-related osteoporosis without current pathological fracture; R10.9 Unspecified abdominal pain; Z88.0 Allergy status to penicillin; Z90.49 Acquired absence of other specified parts of digestive tract
CPT/HCPCS: 74176; 80053; 83690; 85025; 85610; 85730; 86850; 86900; 87040; 96361; 96374; 96375; 99284; C9113; J2405; J7040

== ENCOUNTER 2018-01-05 16:05 | Inpatient (IN) | payer MEDICARE, MEDICAID ==
[2018-01-05 16:06] VITALS: BMI 18.3
[2018-01-05] MEDS ORDERED: Barium Sulfate Susp 2.1% w/v, 2.0% w/w 450 mL Bottle PO ONE ×3 (17:24)
--- NOTE | 2018-01-05 17:35 | ED PDOC ---
HPI: Abdomen Chief Complaint (Provider): abdominal pain, diarrhea History Per: Patient, Family Onset/Duration Of Symptoms: Days Outside of [place] travel?: No Current Symptoms Are (Timing): Still Present Location Of Pain/Discomfort: RLQ, LLQ Quality Of Discomfort: Dull, Aching, "Pain" Associated Symptoms: Nausea, Diarrhea, Loss Of Appetite. denies: Fever, Chills , Vomiting, Chest Pain, Urinary Symptoms Exacerbating Factors: Supine, Food Last Bowel Movement: Today <Belem Villanueva - Last Filed: 01/05/18 19:09> <Christiana Hidalgo - Last Filed: 01/05/18 23:00> Time Seen by Provider: 01/05/18 16:18 Chief Complaint (Nursing): Abdominal Pain Additional Complaint(s): 77 yo F with history of diverticulitis, irritable bowel syndrome, diabetes, COPD , hypertension presented to ED today accompanied by her daughter due to 6 days of abdominal pain and diarrhea up to 4-5 x a day. States she initially saw blood in her stool for first 3 days and then the stool became dark/black. Last BM at 2 pm today. Has nausea, no vomiting. States she has had similar episodes of pain in the past but usually tries to wait it out at home, but due to blood and the issue lasting 6 days, decided to come in. States she has low appetite and feels weak but when she tries to eat she has diarrhea. Endorses nausea, denies vomiting. Has dizziness that is chronic due to vertigo - states laying flat makes her feel more dizzy. Denies fevers, chills, chest pain, shortness of breath, urinary symptoms. PMD: Dr Reardon Sur c/s, cholecystectomy Multiple past admissions for diverticulitis Med list: alprazolam, mirtazapine, hyoscamine, combivent, albuterol, clonidine, meclezine, valsartan, loratadine, amlodipine, omeprazole, almacone, proctozone, olopatadine, starlix (Belem Villanueva) Supervising Attending Note <Belem Villanueva - Last Filed: 01/05/18 19:09> - Supervising Attending Note The Documented history was done by the: Physician Retail Client Solutions Analyst, Attending Physician The documented physical exam was done by the: Physician [employer] Client [employer] Analyst, Attending Physician - Attestation: I have personally seen and examined this patient.: Yes I have fully participated in the care of the patient.: Yes I have reviewed all pertinent clinical information: Yes <Christiana Hidalgo - Last Filed: 01/05/18 23:00> - Notes: Notes:: EXAM: CT Abdomen and Pelvis With Intravenous Contrast CLINICAL HISTORY: 77 years old, female; Pain; Abdominal pain; Localized; Lower; Prior surgery; Surgery date: 6+ months; Surgery type: - 2. Gb removed; Patient HX: H/o diverticuitis; Additional info: Lower abd pain diarrhea h/o divertculitis TECHNIQUE: Axial computed tomography images of the abdomen and pelvis with intravenous contrast. All CT scans at this facility use at least one of these dose optimization techniques: automated exposure control; mA and/or kV adjustment per patient size (includes targeted exams where dose is matched to clinical indication); or iterative reconstruction. Coronal and sagittal reformatted images were created and reviewed. COMPARISON: CT - ABD PELVIS W/O PO OR IV CONT 2016-11-12 07:58 FINDINGS: Lung bases: Subpleural reticular opacities within the dependent aspect of the lower lobes may represent subsegmental atelectasis or scarring. Mild lingular scarring. ABDOMEN: Liver: The liver is normal in appearance. Gallbladder and bile ducts: There has been a cholecystectomy. No ductal dilation. Pancreas: The pancreas is normal. No ductal dilation. Spleen: The spleen is normal. An accessory splenule is present. Adrenals: The adrenal glands are normal. Kidneys and ureters: Punctate hypodensity along the upper pole of right kidney, unchanged from 2017, likely a cyst. No renal stone or hydronephrosis. The ureters are normal. Stomach and bowel: Mild diverticulosis is present throughout the colon. Persistent mild sigmoid wall thickening (axial image 108). No obstruction. PELVIS: Appendix: A normal appendix is identified. Bladder: The bladder is decompressed but otherwise normal. Reproductive: The uterus is normal. 1.1 cm x 1.4 cm left adnexal fluid attenuation. 1.1 cm hyperdense lesion in the region of the left labia, unchanged from prior, possibly a Bartholin's gland cyst. ABDOMEN and PELVIS: Intraperitoneal space: Normal. No free air. No significant fluid collection. Bones/joints: Lumbar levocurvature. Lumbar spondylosis. Osseous demineralization. No acute osseous abnormality. No dislocation. Soft tissues: Normal. Vasculature: The aorta demonstrates mild atherosclerotic calcification. No abdominal aortic aneurysm. Lymph nodes: Several lymph nodes are present within the right lower quadrant, unchanged from 2017, and measuring up to 11 mm in short axis dimension. IMPRESSION: 1. Persistent focal sigmoid thickening without findings to suggest acute diverticulitis. RECOMMEND correlation with outpatient colonoscopy. 2. Left adnexal/ovarian cystic lesion. In a postmenopausal female, yearly pelvic ultrasound is recommended for surveillance. 3. Prominent right lower quadrant lymph nodes are again noted, unchanged. 4. Probable left labial Bartholin's gland cyst. 5. Other chronic findings as above. Thank you for allowing us to participate in the care of your patient. Dictated and Authenticated by: Mohamud Rivera DO 01/05/2018 9:12 PM Eastern Time ([place] & [place]) Pt continued to have green watery diarrhea in ER and continues to report pain DW family findings. DW Dr Reardon PMD. Pt to be hospitalized for abdominal pain, diarrhea, possible c. diff colitis. (Christiana Hidalgo) Past Medical History - Medical History PMH: Anemia, Anxiety, Arthritis, Asthma, COPD, Depression, Diabetes (Type II), Diverticulitis, Emphysema, Gastritis, GERD, HTN, Hypercholesterolemia, Migraine , Osteoporosis Denies: HIV, Chronic Kidney Disease - Surgical History Surgical History: Cholecystectomy, - Family History Family History: States: Unknown Family Hx - Social History Ex-Smoker (has not smoked in the last 12 months): Yes Alcohol: None Drugs: Denies <Belem Villanueva - Last Filed: 01/05/18 19:09> <Christiana Hidalgo - Last Filed: 01/05/18 23:00> Vital Signs: Last Vital Signs Temp 98 F 01/05/18 16:10 Pulse 77 01/05/18 16:10 Resp 19 01/05/18 16:10 BP 144/83 01/05/18 16:10 Pulse Ox 99 01/05/18 19:09 - Home Medications Home Medications: Ambulatory Orders Medication Instructions Recorded Albuterol 0.083% [Albuterol 0.083% 3 ml IH TID 02/13/16 Inhal Tila (2.5 mg/3 ml) UD] Alprazolam [Xanax] 0.5 mg PO PRN PRN 02/13/16 Capsaicin 42.5 gm TP DAILY #1 cream..g. 02/13/16 Hyoscyamine [Levsin] 0.125 mg PO DAILY 02/13/16 Ipratropium 0.02% [Atrovent] 0.5 mg IH TID 02/13/16 Loperamide [Imodium] 2 mg PO PRN PRN 02/13/16 Meclizine HCl [Antivert] 25 mg PO PRN PRN 02/13/16 Mirtazapine [Remeron] 15 mg PO DAILY 02/13/16 Nateglinide [Starlix] 60 mg PO BID 02/13/16 Ranitidine HCl [Zantac] 150 mg PO DAILY 02/13/16 Valsartan [Diovan] 80 mg PO DAILY 02/13/16 cloNIDine [Catapres] 0.1 mg PO DAILY 02/13/16 Promethazine DM [Phenergan DM 10 ml PO Q4 PRN dose 10/12/16 Syrup] guaiFENesin/Dextromethorphan 10 ml PO Q4 PRN 10/12/16 [Robitussin DM] metroNIDAZOLE [Flagyl] 250 mg PO QID tab 10/12/16 Ondansetron [Zofran] 4 mg PO Q8H #9 tab 11/12/16 - Allergies Allergies/Adverse Reactions: Allergies Allergy/AdvReac Type Severity Reaction Status Date / Time aspirin Allergy SHORTNESS Verified 01/05/18 16:15 OF BREATH azithromycin [From Zithromax] Allergy RASH Verified 01/05/18 16:15 budesonide [From Symbicort] Allergy RASH Verified 01/05/18 16:15 calcium Allergy RASH Verified 01/05/18 16:15 ciprofloxacin [From Cipro] Allergy ITCHING Verified 01/05/18 16:15 ciprofloxacin HCl Allergy ITCHING Verified 01/05/18 16:15 [From Cipro] codeine Allergy SHORTNESS Verified 01/05/18 16:15 OF BREATH formoterol fumarate Allergy RASH Verified 01/05/18 16:15 [From Symbicort] iodine Allergy RASH Verified 01/05/18 16:15 latex Allergy RASH Verified 01/05/18 16:15 lidocaine Allergy unknown Verified 01/05/18 16:15 Penicillins Allergy RASH Verified 01/05/18 16:15 Sulfa (Sulfonamide Allergy RASH Verified 01/05/18 16:15 Antibiotics) tetracycline Allergy RASH Verified 01/05/18 16:15 erthromycin Allergy RASH Uncoded 01/05/18 16:15 Review of Systems Constitutional: Negative for: Fever, Chills Cardiovascular: Negative for: Chest Pain Respiratory: Positive for: SOB with Exertion. Negative for: Cough Gastrointestinal: Positive for: Nausea, Abdominal Pain, Diarrhea, Hematochezia. Negative for: Vomiting, Hematemesis Genitourinary Female: Negative for: Dysuria Neurological: Negative for: Weakness, Numbness, Change in Speech <Belem Villanueva - Last Filed: 01/05/18 19:09> Physical Exam - Physical Exam Appears: Positive for: Non-toxic, No Acute Distress Skin: Positive for: Dry Eye Exam: Positive for: EOMI, PERRL ENT: Positive for: Pharynx Is (clear), Other (dry mucous membranes) Cardiovascular/Chest: Positive for: Regular Rate, Rhythm, Chest Non Tender Respiratory: Positive for: Normal Breath Sounds. Negative for: Accessory Muscle Use, Wheezing Gastrointestinal/Abdominal: Positive for: Bowel Sounds, Soft, Tenderness ( bilateral lower quadrants) Rectal: Positive for: Hemorrhoids, Other (no alex blood on glove. Rectal exam done with female spinning bath person in room (Sarah, aerial photographer)). Negative for: Black Stool , Mass, Tenderness Extremity: Positive for: Capillary Refill (3 sec). Negative for: Tenderness, Pedal Edema, Deformity Neurologic/Psych: Positive for: Alert, Oriented, Mood/Affect (anxious) <Belem Villanueva - Last Filed: 01/05/18 19:09> - Laboratory Results Result Diagrams: 01/05/18 17:30 01/05/18 17:30 - ECG O2 Sat by Pulse Oximetry: 99 <Belem Villanueva - Last Filed: 01/05/18 19:09> - Laboratory Results Result Diagrams: 01/05/18 17:30 01/05/18 17:30 <Christiana Hidalgo - Last Filed: 01/05/18 23:00> Medical Decision Making <Belem Villanueva - Last Filed: 07/26/18 19:09> <Christiana Hidalgo - Last Filed: 01/05/18 23:00> Medical Decision Makin yo F with diverticulitis, irritable bowel syndrome, diabetes, hypertension, anxiety, with abdominal pain and diarrhea x 6 days. - EKG - CBC - CMP - Lipase - Lactic Acid - Type and Screen - PT/PTT/INR - UA - Urine culture - Stool occult blood - Stool O&P - Stool culture - C. diff toxin - Abd and Pelvis CT, PO barium - Pt discussed w/ Dr. Hidalgo. (Belem Villanueva) Disposition - Disposition Disposition Time: 19:07 <Belem Villanueva - Last Filed: 01/05/18 19:09> - Pt Status Changed To: Hospital Disposition Of: Observation - POA Present On Arrival: None <Christiana Hidalgo - Last Filed: 01/05/18 23:00> - Clinical Impression Clinical Impression: Abdominal pain, Colitis - Disposition Condition: STABLE
[2018-01-05 17:47] LABS: BASO % 0.5 % (0.0-2.0); EOS # 0.1 K/uL (0.0-0.7); EOS % 1.6 % (0.0-4.0); LYMPH # 1.2 K/uL (1.0-4.3); LYMPH % 26.3 % (20.0-40.0); MEAN CELL VOLUME 81.6 fl (81.0-99.0); MEAN CORPUSCULAR HEMOGLOBIN 28.2 pg (27.0-31.0); MEAN CORPUSCULAR HGB CONC 34.6 g/dL (33.0-37.0); MONO # 0.2 K/uL (0.0-0.8); MONO % 5.3 % (0.0-10.0); NEUT % 66.3 % (50.0-75.0); NRBC % 0.4 % (0.0-0.0); RBC 4.95 Mil/uL (3.80-5.20); RED CELL DISTRIBUTION WIDTH 13.2 % (11.5-14.5); WHITE BLOOD COUNT 4.5 K/uL (4.8-10.8)
[2018-01-05 17:56] LABS: ALB/GLOB RATIO 1.3 (1.0-2.1); ALBUMIN 4.7 g/dL (3.5-5.0); ALT/SGPT 25 U/L (9-52); AST/SGOT 25 U/L (14-36); BLOOD UREA NITROGEN 5 mg/dl (7-17); CALCIUM 9.6 mg/dL (8.4-10.2); GFR NON-AFRICAN AMERICAN > 60; LIPASE 57 U/L (23-300)
[2018-01-05 18:08] LABS: PARTIAL THROMBOPLASTIN TIME 32.8 Seconds (25.6-37.1); PROTHROMBIN TIME 11.6 Seconds (9.8-13.1)
[2018-01-05] MEDS ORDERED: Albuterol 0.083% Inhal Sol (2.5 mg/3 mL) UD INH ONE (18:56)
[2018-01-05] MEDS ORDERED: Atropine-Diphenoxylate 0.025-2.5 mg Tab PO STA (21:25)
[2018-01-05] MEDS ORDERED: metroNIDAZOLE 500mg/100ml NS 100 ML IVPB STA (21:27)
[2018-01-05] MEDS ORDERED: Vancomycin 500 mg (Oral/Rectal USE) PO STA (21:28)
[2018-01-05] MEDS ORDERED: Atropine-Diphenoxylate 0.025-2.5 mg Tab ONE ×2 (22:16→22:44)
[2018-01-05] MEDS ORDERED: metroNIDAZOLE 500mg/100ml NS 100 ML IVPB ONE (22:17)
[2018-01-06] MEDS: Potassium Ch 20mEq in D5-1/2NS 1,000 ML IV SCH ×2 (01:39→16:15)
[2018-01-06] MEDS ORDERED: Alum-Mag Hydrox-Simethicone Susp (30 mL) PO ONE (01:51)
[2018-01-06 06:51] LABS: BASO % 0.3 % (0.0-2.0); EOS % 1.2 % (0.0-4.0); HEMOGLOBIN 11.4 g/dL (12.0-16.0); LYMPH # 0.9 K/uL (1.0-4.3); LYMPH % 21.8 % (20.0-40.0); MEAN CELL VOLUME 82.7 fl (81.0-99.0); MEAN CORPUSCULAR HGB CONC 33.9 g/dL (33.0-37.0); MEAN PLATELET VOLUME 6.9 fl (7.2-11.7); MONO # 0.3 K/uL (0.0-0.8); MONO % 8.2 % (0.0-10.0); NEUT # 2.9 K/uL (1.8-7.0); NEUT % 68.5 % (50.0-75.0); RBC 4.08 Mil/uL (3.80-5.20); WHITE BLOOD COUNT 4.2 K/uL (4.8-10.8)
[2018-01-06 06:56] LABS: LDL CHOLESTEROL 62 mg/dL (0-129)
[2018-01-06 07:00] LABS: ALBUMIN 3.4 g/dL (3.5-5.0); ALT/SGPT 85 U/L (9-52); AST/SGOT 292 U/L (14-36); BLOOD UREA NITROGEN 5 mg/dl (7-17); CALCIUM 8.5 mg/dL (8.4-10.2); GFR NON-AFRICAN AMERICAN > 60; HDL CHOLESTEROL 29 MG/DL (30-70); T4 11.5 ug/dl (5.5-11.0)
[2018-01-06 07:52] LABS: ALB/GLOB RATIO 1.3 (1.0-2.1)
--- NOTE | 2018-01-06 08:49 | CT ---
Date of service: 01/05/2018 PROCEDURE: CT Abdomen and Pelvis with contrast HISTORY: lower abd pain diarrhea h/o divertculitis COMPARISON: Noncontrast abdomen pelvis CT 11/12/2016. TECHNIQUE: Contrast dose: None Radiation dose: Total exam DLP = 264.02 mGy-cm. This CT exam was performed using one or more of the following dose reduction techniques: Automated exposure control, adjustment of the mA and/or kV according to patient size, and/or use of iterative reconstruction technique. FINDINGS: LOWER THORAX: A minimal fibrotic changes in the lingula and right lower lobe bases reiterated. LIVER: Unremarkable. No gross lesion or ductal dilatation. GALLBLADDER AND BILE DUCTS: Prior cholecystectomy reiterated. PANCREAS: Unremarkable. No gross lesion or ductal dilatation. SPLEEN: Unremarkable. ADRENALS: Unremarkable. No mass. KIDNEYS AND URETERS: Obstructed uropathy or radiodense urolithiasis bilaterally. A tiny lucency seen the medial upper midpole right kidney too small to characterize. Lack images contrast also limits evaluation of the solid abdominal viscera in general. Unremarkable appearing left kidney. VASCULATURE: Unremarkable. No aortic aneurysm. BOWEL: Stomach is moderately distend with retained oral contrast material and air with no definite suspicious findings. The bowel is again remarkable for sigmoid diverticulosis with limited thickening at the midportion but without pericolic reaction. No local fluid collection associated. Infrequent diverticula are seen related to the descending colon and the cecum once again. APPENDIX: Normal appendix. PERITONEUM: Unremarkable. No free fluid. No free air. LYMPH NODES: Stable nonspecific mildly enlarged right lower quadrant abdominal lymph nodes measuring up to 1.1 cm greatest dimension. BLADDER: Unremarkable. REPRODUCTIVE: 1.1 x 1.4 cm left adnexal cyst appears stable. 1.1 cm hyperdensity at the left labia region not simply changed, potentially rib reflecting Bartholin's gland cyst. BONES: No acute fracture. OTHER FINDINGS: None. IMPRESSION: 1. Limited thickening of the mid sigmoid colon is appreciated and diverticulosis of the sigmoid is reiterated. No pericholecystic fluid collection or reaction is identified at this time or free air. No definite pattern to suggest acute diverticulitis at this time. Follow-up elective colonoscopy advised. 2. Stable 1.4 cm left adnexal cyst and small hyperdensity left labia potentially reflecting Bartholin's gland cyst. 3. A tiny lucency upper midpole right kidney medially, too small to characterize. No obstructive uropathy bilaterally. 4. Stable nonspecific right lower quadrant mildly enlarged lymph nodes. Concordant preliminary report from [facility], 01/05/2018.
[2018-01-06] MEDS ORDERED: Albuterol 0.083% Inhal Sol (2.5 mg/3 mL) UD IH SCH (09:00)
[2018-01-06] MEDS ORDERED: Ipratropium 0.02% Inhal Soln (0.5 mg/2.5 ml) UD IH SCH (09:00)
[2018-01-06] MEDS: metroNIDAZOLE 500mg/100ml NS 100 ML IVPB SCH ×2 (09:21→16:15)
[2018-01-06] MEDS: Olopatadine 0.1% Opht SOLN OU SCH (09:23)
[2018-01-06] MEDS: Vancomycin 500 mg (Oral/Rectal USE) PO SCH ×2 (09:24→16:16)
[2018-01-06 11:39] LABS: URINE BILIRUBIN NEGATIVE (NEGATIVE); URINE BLOOD SMALL (NEGATIVE); URINE CLARITY CLEAR (Clear); URINE COLOR STRAW (YELLOW); URINE GLUCOSE (UA) NEG (Normal); URINE LEUKOCYTE ESTERASE NEG Leu/uL (Negative); URINE PROTEIN NEGATIVE (NEGATIVE); URINE UROBILINOGEN 0.2-1.0 mg/dL (0.2-1.0)
[2018-01-06] MEDS: Albuterol 0.083% Inhal Sol (2.5 mg/3 mL) UD IH SCH ×2 (14:30→19:32)
[2018-01-06] MEDS: Ipratropium 0.02% Inhal Soln (0.5 mg/2.5 ml) UD IH SCH ×2 (14:30→19:32)
--- NOTE | 2018-01-06 18:18 | CP.PCM.HP ---
History of Present Illness - History of Present Illness History of Present Illness: CC: Abdominal pain. 77 y/o F, Multiple chronic PMHx, including IBS, Diverticulitis, COPD, HTN,came to [facility] [place], to be evaluated for Abdominal pain that began a week [employer] with no relief. Pt was c/o of persistent abdominal pain RLQ/LLQ for a week [employer], described as dull, aching, moderate intensity 4-5:10, associated to nausea, bloody diarrhea x 3 first days at the beginning, and after with dark stool which make her to come to hospital for evaluation and Tx. Worsening symptoms: Increased pain with BM, weakness, lack of appetite, [place]. Aggravated factor: Food. Pt denied: Fever, chills, vomiting, CP, palpitations, syncope, numbness, urinary symptoms, sick contact, recent travel out of [facility]. Abd/Pelv CT shows: Stomach moderate dilated, bowel is remarkable for sigmoid Diverticulosis, no definite pattern to suggest acute Diverticulitis. no suspicious findings. Present on Admission - Present on Admission Any Indicators Present on Admission: No Review of Systems - Constitutional Constitutional: Weakness - EENT Eyes: Requires Corrective Lenses Ears: Other (negative) Nose/Mouth/Throat: Other (negative) - Cardiovascular Cardiovascular: Other (negative) - Respiratory Respiratory: Dyspnea on Exertion - Gastrointestinal Gastrointestinal: Abdominal Pain, Diarrhea, Melena, Nausea - Genitourinary Genitourinary: Other (negative) - Musculoskeletal Musculoskeletal: Arthralgias, Muscle Weakness - Integumentary Integumentary: Other (negative) - Neurological Neurological: Dizziness (chronic) - Psychiatric Psychiatric: Anxiety - Endocrine Endocrine: Other (negative) - Hematologic/Lymphatic Hematologic: Other (negative) Past Patient History - Infectious Disease Hx of Infectious Diseases: None - Past Medical History & Family History Past Medical History?: Yes Pertinent Family History: Unknown - Past Social History Smoking Status: Never Smoked - CARDIAC Hx Cardiac Disorders: Yes Hx Hypercholesterolemia: Yes Hx Hypertension: Yes - PULMONARY Hx Respiratory Disorders: Yes Hx Asthma: Yes Hx Chronic Obstructive Pulmonary Disease (COPD): Yes Hx Emphysema: Yes - NEUROLOGICAL Hx Neurological Disorder: Yes Hx Migraine: Yes - HEENT Hx HEENT Problems: Yes Other/Comment: Uses eyeglasses - RENAL Hx Chronic Kidney Disease: No - ENDOCRINE/METABOLIC Hx Endocrine Disorders: Yes Hx Diabetes Mellitus Type 2: Yes - HEMATOLOGICAL/ONCOLOGICAL Hx Blood Disorders: Yes Hx Anemia: Yes Hx Human Immunodeficiency Virus (HIV): No - INTEGUMENTARY Hx Dermatological Problems: No - MUSCULOSKELETAL/RHEUMATOLOGICAL Hx Musculoskeletal Disorders: Yes Hx Arthritis: Yes Hx Falls: No Hx Osteoporosis: Yes - GASTROINTESTINAL Hx Gastrointestinal Disorders: Yes Hx Diverticulitis: Yes Hx Gastritis: Yes Hx Irritable Bowel: Yes - GENITOURINARY/GYNECOLOGICAL Hx Genitourinary Disorders: No - PSYCHIATRIC Hx Psychophysiologic Disorder: Yes Hx Anxiety: Yes Hx Depression: Yes Hx Substance Use: No - SURGICAL HISTORY Hx Surgeries: Yes Hx Cholecystectomy: Yes - ANESTHESIA Hx Anesthesia: Yes Hx Anesthesia Reactions: No Hx Malignant Hyperthermia: No Meds Allergies/Adverse Reactions: Allergies Allergy/AdvReac Type Severity Reaction Status Date / Time aspirin Allergy SHORTNESS Verified 01/05/18 16:15 OF BREATH azithromycin [From Zithromax] Allergy RASH Verified 01/05/18 16:15 budesonide [From Symbicort] Allergy RASH Verified 01/05/18 16:15 calcium Allergy RASH Verified 01/05/18 16:15 ciprofloxacin [From Cipro] Allergy ITCHING Verified 01/05/18 16:15 ciprofloxacin HCl Allergy ITCHING Verified 01/05/18 16:15 [From Cipro] codeine Allergy SHORTNESS Verified 01/05/18 16:15 OF BREATH formoterol fumarate Allergy RASH Verified 01/05/18 16:15 [From Symbicort] iodine Allergy RASH Verified 01/05/18 16:15 latex Allergy RASH Verified 01/05/18 16:15 lidocaine Allergy unknown Verified 01/05/18 16:15 Penicillins Allergy RASH Verified 01/05/18 16:15 Sulfa (Sulfonamide Allergy RASH Verified 01/05/18 16:15 Antibiotics) tetracycline Allergy RASH Verified 01/05/18 16:15 cranberry AdvReac DIARRHEA Verified 01/06/18 00:27 erthromycin Allergy RASH Uncoded 01/05/18 16:15 Physical Exam - Constitutional Appears: Chronically Ill - Head Exam Head Exam: NORMAL INSPECTION - Eye Exam Eye Exam: PERRL - ENT Exam ENT Exam: Normal Exam - Neck Exam Neck exam: Positive for: Normal Inspection - Respiratory Exam Respiratory Exam: Decreased Breath Sounds - Cardiovascular Exam Cardiovascular Exam: REGULAR RHYTHM - GI/Abdominal Exam GI & Abdominal Exam: Normal Bowel Sounds, Soft, Tenderness (mild lower quadrants ) - Extremities Exam Extremities exam: Positive for: normal inspection - Back Exam Back exam: NORMAL INSPECTION - Neurological Exam Neurological exam: Alert, Oriented x3 Additional comments: No motor/sensory deficit. - Psychiatric Exam Psychiatric exam: Anxious - Skin Skin Exam: Warm Results - Vital Signs Recent Vital Signs: Last Vital Signs Temp 97.6 F 01/06/18 15:58 Pulse 89 01/06/18 15:58 Resp 18 01/06/18 15:58 BP 129/61 01/06/18 15:58 Pulse Ox 97 01/06/18 15:58 reviewed Trae - Labs Result Diagrams: 01/07/18 05:20 01/07/18 05:20 Labs: Laboratory Results - last 24 hr 01/05/18 01/05/18 01/05/18 17:50 17:58 21:25 WBC RBC Hgb Hct MCV MCH MCHC RDW Plt Count MPV Neut % (Auto) Lymph % (Auto) [place] % (Auto) Eos % (Auto) Baso % (Auto) Neut # (Auto) Lymph # (Auto) [place] # (Auto) Eos # (Auto) Baso # (Auto) Sodium Potassium Chloride Carbon Dioxide Anion Gap BUN Creatinine Est GFR ( Amer) Est GFR (Non-Af Amer) POC Glucose (mg/dL) Random Glucose Calcium Total Bilirubin AST ALT Alkaline Phosphatase Total Protein Albumin Globulin Albumin/Globulin Ratio Triglycerides Cholesterol LDL Cholesterol Direct HDL Cholesterol Thyroxine (T4) TSH 3rd Generation Urine Color Cancelled Urine Clarity Cancelled Urine pH Cancelled Ur Specific Hinkley Cancelled Urine Protein Cancelled Urine Glucose (UA) Cancelled Urine Ketones Cancelled Urine Blood Cancelled Urine Nitrate Cancelled Urine Bilirubin Cancelled Urine Urobilinogen Cancelled Ur Leukocyte Esterase Cancelled Urine RBC (Auto) Cancelled Urine WBC Clumps (Auto) Cancelled Urine Microscopic WBC Cancelled Ur Squamous Epith Cells Cancelled Ur Transition Epith Cell Cancelled Ur Renal Epithelial Cell Cancelled Calcium Carbonate Cryst Cancelled Calcium Phos Rand (Auto) Cancelled Calcium Oxalate Crystal Cancelled Leucine Crystals Cancelled Cystine Crystals Cancelled Uric Acid Crystals Cancelled Triple Phos Crystals Cancelled Tyrosine Crystals Cancelled Other Crystals Cancelled Amorphous Sediment Cancelled Urine Bacteria Cancelled Epithelial Casts (Auto) Cancelled Fatty Casts Cancelled Hyaline Casts Cancelled Granular Casts (Auto) Cancelled Waxy Casts Cancelled Broad Casts Cancelled RBC Casts Cancelled WBC Casts Cancelled Other Casts Cancelled Urine Trichomonas Cancelled Ur Yeast w Hyphae Cancelled Urine Yeast (Budding) Cancelled Urine Sperm (Auto) Cancelled Ur Oval Fat Bodies Auto Cancelled Stool Occult Blood Positive H Stool Leukocytes, Qual C. difficile Ag & Toxin Negative Blood Type A POSITIVE Antibody Screen Negative BBK History Checked Patient has bt 01/05/18 01/06/18 01/06/18 23:13 05:30 05:30 WBC 4.2 L RBC 4.08 Hgb 11.4 L D Hct 33.7 L MCV 82.7 MCH 28.0 MCHC 33.9 RDW 13.0 Plt Count 122 L D MPV 6.9 L Neut % (Auto) 68.5 Lymph % (Auto) 21.8 Calvert % (Auto) 8.2 Eos % (Auto) 1.2 Baso % (Auto) 0.3 Neut # (Auto) 2.9 Lymph # (Auto) 0.9 L [place] # (Auto) 0.3 Eos # (Auto) 0.0 Baso # (Auto) 0.0 Sodium 141 Potassium 3.5 L Chloride 103 Carbon Dioxide 29 Anion Gap 13 BUN 5 L Creatinine 0.6 L Est GFR ( Amer) > 60 Est GFR (Non-Af Amer) > 60 POC Glucose (mg/dL) 95 Random Glucose 130 H Calcium 8.5 Total Bilirubin 1.4 H AST 292 H D ALT 85 H D Alkaline Phosphatase 113 Total Protein 6.0 L Albumin 3.4 L D Globulin 2.6 Albumin/Globulin Ratio 1.3 Triglycerides 221 H D Cholesterol 139 LDL Cholesterol Direct 62 HDL Cholesterol 29 L Thyroxine (T4) 11.5 H TSH 3rd Generation 2.18 Urine Color Urine Clarity Urine pH Ur Specific Hinkley Urine Protein Urine Glucose (UA) Urine Ketones Urine Blood Urine Nitrate Urine Bilirubin Urine Urobilinogen Ur Leukocyte Esterase Urine RBC (Auto) Urine WBC Clumps (Auto) Urine Microscopic WBC Ur Squamous Epith Cells Ur Transition Epith Cell Ur Renal Epithelial Cell Calcium Carbonate Cryst Calcium Phos Rand (Auto) Calcium Oxalate Crystal Leucine Crystals Cystine Crystals Uric Acid Crystals Triple Phos Crystals Tyrosine Crystals Other Crystals Amorphous Sediment Urine Bacteria Epithelial Casts (Auto) Fatty Casts Hyaline Casts Granular Casts (Auto) Waxy Casts Broad Casts RBC Casts WBC Casts Other Casts Urine Trichomonas Ur Yeast w Hyphae Urine Yeast (Budding) Urine Sperm (Auto) Ur Oval Fat Bodies Auto Stool Occult Blood Stool Leukocytes, Qual C. difficile Ag & Toxin Blood Type Antibody Screen BBK History Checked 01/06/18 01/06/18 01/06/18 05:38 09:30 10:58 WBC RBC Hgb Hct MCV MCH MCHC RDW Plt Count MPV Neut % (Auto) Lymph % (Auto) [place] % (Auto) Eos % (Auto) Baso % (Auto) Neut # (Auto) Lymph # (Auto) [place] # (Auto) Eos # (Auto) Baso # (Auto) Sodium Potassium Chloride Carbon Dioxide Anion Gap BUN Creatinine Est GFR ( Amer) Est GFR (Non-Af Amer) POC Glucose (mg/dL) 121 H 93 Random Glucose Calcium Total Bilirubin AST ALT Alkaline Phosphatase Total Protein Albumin Globulin Albumin/Globulin Ratio Triglycerides Cholesterol LDL Cholesterol Direct HDL Cholesterol Thyroxine (T4) TSH 3rd Generation Urine Color Urine Clarity Urine pH Ur Specific Hinkley Urine Protein Urine Glucose (UA) Urine Ketones Urine Blood Urine Nitrate Urine Bilirubin Urine Urobilinogen Ur Leukocyte Esterase Urine RBC (Auto) Urine WBC Clumps (Auto) Urine Microscopic WBC Ur Squamous Epith Cells Ur Transition Epith Cell Ur Renal Epithelial Cell Calcium Carbonate Cryst Calcium Phos Rand (Auto) Calcium Oxalate Crystal Leucine Crystals Cystine Crystals Uric Acid Crystals Triple Phos Crystals Tyrosine Crystals Other Crystals Amorphous Sediment Urine Bacteria Epithelial Casts (Auto) Fatty Casts Hyaline Casts Granular Casts (Auto) Waxy Casts Broad Casts RBC Casts WBC Casts Other Casts Urine Trichomonas Ur Yeast w Hyphae Urine Yeast (Budding) Urine Sperm (Auto) Ur Oval Fat Bodies Auto Stool Occult Blood Stool Leukocytes, Qual Negative C. difficile Ag & Toxin Blood Type Antibody Screen BBK History Checked 01/06/18 01/06/18 01/06/18 11:00 11:20 15:46 WBC RBC Hgb Hct MCV MCH MCHC RDW Plt Count MPV Neut % (Auto) Lymph % (Auto) [place] % (Auto) Eos % (Auto) Baso % (Auto) Neut # (Auto) Lymph # (Auto) [place] # (Auto) Eos # (Auto) Baso # (Auto) Sodium Potassium Chloride Carbon Dioxide Anion Gap BUN Creatinine Est GFR ( Amer) Est GFR (Non-Af Amer) POC Glucose (mg/dL) 102 Random Glucose Calcium Total Bilirubin AST ALT Alkaline Phosphatase Total Protein Albumin Globulin Albumin/Globulin Ratio Triglycerides Cholesterol LDL Cholesterol Direct HDL Cholesterol Thyroxine (T4) TSH 3rd Generation Urine Color Straw Urine Clarity Clear Urine pH 7.0 Ur Specific Hinkley < 1.005 Urine Protein Negative Urine Glucose (UA) Neg Urine Ketones Negative Urine Blood Small Urine Nitrate Negative Urine Bilirubin Negative Urine Urobilinogen 0.2-1.0 Ur Leukocyte Esterase Neg Urine RBC (Auto) < 1 Urine WBC Clumps (Auto) Urine Microscopic WBC < 1 Ur Squamous Epith Cells Ur Transition Epith Cell Ur Renal Epithelial Cell Calcium Carbonate Cryst Calcium Phos Rand (Auto) Calcium Oxalate Crystal Leucine Crystals Cystine Crystals Uric Acid Crystals Triple Phos Crystals Tyrosine Crystals Other Crystals Amorphous Sediment Urine Bacteria Epithelial Casts (Auto) Fatty Casts Hyaline Casts Granular Casts (Auto) Waxy Casts Broad Casts RBC Casts WBC Casts Other Casts Urine Trichomonas Ur Yeast w Hyphae Urine Yeast (Budding) Urine Sperm (Auto) Ur Oval Fat Bodies Auto Stool Occult Blood Stool Leukocytes, Qual C. difficile Ag & Toxin Negative Blood Type Antibody Screen BBK History Checked reviewed J.P. - Imaging and Cardiology CT scan - abdomen Status: Report reviewed by me (J.P.) CT scan - pelvis Status: Report reviewed by me (J.P.) Assessment & Plan (1) Abdominal pain Status: Acute Priority: High (2) Colitis Status: Acute Priority: High (3) IBS (irritable bowel syndrome) Status: Chronic Priority: High (4) COPD (chronic obstructive pulmonary disease) Status: Chronic Priority: Medium (5) DMII (diabetes mellitus, type 2) Status: Chronic Priority: Medium (6) Hypertension Status: Chronic Priority: Medium (7) Anxiety Status: Chronic Priority: Medium - Assessment and Plan (Free Text) Plan: F/U EKG, continue Flagyl, Vanco, Protonix, Potassium Chl, Albuterol, Ipratropium, Norvasc and rest of Tx. GI consult. - Date & Time Date: 01/06/18 Time: 15:00
[2018-01-07] MEDS: metroNIDAZOLE 500mg/100ml NS 100 ML IVPB SCH ×3 (00:28→17:51)
[2018-01-07 07:15] LABS: HEMOGLOBIN 11.2 g/dL (12.0-16.0); MEAN CELL VOLUME 82.2 fl (81.0-99.0); MEAN CORPUSCULAR HEMOGLOBIN 28.2 pg (27.0-31.0); MEAN CORPUSCULAR HGB CONC 34.4 g/dL (33.0-37.0); RBC 3.97 Mil/uL (3.80-5.20); RED CELL DISTRIBUTION WIDTH 13.5 % (11.5-14.5); WHITE BLOOD COUNT 2.8 K/uL (4.8-10.8)
[2018-01-07 07:53] LABS: ALB/GLOB RATIO 1.3 (1.0-2.1); ALBUMIN 3.3 g/dL (3.5-5.0); ALT/SGPT 74 U/L (9-52); AST/SGOT 66 U/L (14-36); BLOOD UREA NITROGEN 5 mg/dl (7-17); CALCIUM 8.4 mg/dL (8.4-10.2); GFR NON-AFRICAN AMERICAN > 60
[2018-01-07] MEDS: Albuterol 0.083% Inhal Sol (2.5 mg/3 mL) UD IH SCH ×3 (08:05→19:14)
[2018-01-07] MEDS: Ipratropium 0.02% Inhal Soln (0.5 mg/2.5 ml) UD IH SCH ×3 (08:05→19:14)
[2018-01-07] MEDS: Vancomycin 500 mg (Oral/Rectal USE) PO SCH ×2 (09:27→17:57)
[2018-01-07] MEDS: Olopatadine 0.1% Opht SOLN OU SCH ×2 (09:28→11:15)
--- NOTE | 2018-01-07 17:54 | CP.PCM.PN ---
Subjective - Date & Time of Evaluation Date of Evaluation: 01/07/18 Time of Evaluation: 12:30 - Subjective Subjective: F/U Abdominal pain/ Colitis. Pt awake, no A/D, no nausea/vomiting, having BM. Objective - Vital Signs/Intake and Output Vital Signs (last 24 hours): Temp Pulse Resp BP Pulse Ox 98 F 92 H 20 154/73 H 99 01/07/18 16:59 01/07/18 16:59 01/07/18 16:59 01/07/18 16:59 01/07/18 16:59 - Medications Medications: Current Medications Acetaminophen (Tylenol 325mg Tab) 650 mg PO Q4 PRN PRN Reason: Pain, moderate (4-7) Last Admin: 01/06/18 21:02 Dose: 650 mg Albuterol Sulfate (Albuterol 0.083% Inhal Tila (2.5 Mg/3 Ml) Ud) 2.5 mg IH RTID [facility] Last Admin: 01/07/18 13:30 Dose: 2.5 mg Alprazolam (Xanax) 0.5 mg PO TID PRN PRN Reason: Anxiety Last Admin: 01/07/18 11:04 Dose: 0.5 mg Amlodipine Besylate (Norvasc) 2.5 mg PO DAILY [facility] Last Admin: 01/07/18 09:26 Dose: 2.5 mg Metronidazole (Flagyl 500mg/100ml Ns) 100 mls @ 100 mls/hr IVPB Q8 [facility] PRN Reason: Protocol Last Admin: 01/07/18 17:51 Dose: 100 mls/hr Ipratropium [place] (Atrovent) 0.5 mg IH RTID [facility] Last Admin: 01/07/18 13:30 Dose: 0.5 mg Loratadine (Claritin) 10 mg PO DAILY [facility] Last Admin: 01/07/18 09:26 Dose: 10 mg Mirtazapine (Remeron) 15 mg PO HS [facility] Last Admin: 01/06/18 21:03 Dose: 15 mg Olopatadine HCl (Patanol 0.1% Opht Soln) 1 drop OU DAILY [facility] Last Admin: 01/07/18 11:15 Dose: Not Given Pantoprazole Sodium (Protonix Inj) 40 mg IVP DAILY [facility] Last Admin: 01/07/18 09:27 Dose: 40 mg Vancomycin HCl (Vancocin (Oral/Rectal Use)) 500 mg PO BID [facility] PRN Reason: Protocol Last Admin: 01/07/18 09:27 Dose: 500 mg - Labs Labs: 01/07/18 05:20 01/07/18 05:20 PT 11.6 Seconds (9.8-13.1) 01/05/18 17:30 INR 1.0 (0.9-1.2) 01/05/18 17:30 APTT 32.8 Seconds (25.6-37.1) 01/05/18 17:30 - Constitutional Appears: Chronically Ill - Head Exam Head Exam: NORMAL INSPECTION - Eye Exam Eye Exam: PERRL - ENT Exam ENT Exam: Normal Exam - Neck Exam Neck Exam: Normal Inspection - Respiratory Exam Respiratory Exam: NORMAL BREATHING PATTERN - Cardiovascular Exam Cardiovascular Exam: REGULAR RHYTHM - GI/Abdominal Exam GI & Abdominal Exam: Soft, Normal Bowel Sounds. absent: Distended, Tenderness - Extremities Exam Extremities Exam: Normal Inspection - Back Exam Back Exam: NORMAL INSPECTION - Neurological Exam Neurological Exam: Alert, Oriented x3. absent: Motor Sensory Deficit - Psychiatric Exam Psychiatric exam: Anxious - Skin Skin Exam: Warm Assessment and Plan (1) Abdominal pain Status: Acute (2) Colitis Status: Acute (3) IBS (irritable bowel syndrome) Status: Chronic (4) COPD (chronic obstructive pulmonary disease) Status: Chronic (5) DMII (diabetes mellitus, type 2) Status: Chronic (6) Hypertension Status: Chronic (7) Anxiety Status: Chronic - Assessment and Plan (Free Text) Plan: Continue Flagyl, Vanco, Protonix, Atrovent, Albuterol, Xanax and rest of Tx. GI consult.
[2018-01-07] MEDS: Dextrose 5%/0.45% NS 1,000 ML IV SCH (20:45)
--- NOTE | 2018-01-07 20:49 | CARD ---
APPROVED REPORT Date of service: 01/05/2018 EKG Measurement Heart [id number] <Conclusion> Normal sinus rhythm Moderate voltage criteria for LVH, may be normal variant Borderline ECG
[2018-01-07 23:24] VITALS: RESP 18
[2018-01-08] MEDS: metroNIDAZOLE 500mg/100ml NS 100 ML IVPB SCH ×3 (01:08→16:34)
[2018-01-08] MEDS: Ipratropium 0.02% Inhal Soln (0.5 mg/2.5 ml) UD IH SCH ×3 (07:12→19:53)
[2018-01-08] MEDS: Albuterol 0.083% Inhal Sol (2.5 mg/3 mL) UD IH SCH ×3 (07:12→19:53)
[2018-01-08] MEDS: Dextrose 5%/0.45% NS 1,000 ML IV SCH (09:46)
[2018-01-08] MEDS: Olopatadine 0.1% Opht SOLN OU SCH (10:25)
[2018-01-08] MEDS: Vancomycin 500 mg (Oral/Rectal USE) PO SCH ×2 (12:59→16:47)
--- NOTE | 2018-01-08 13:29 | CP.PCM.PN ---
Subjective - Date & Time of Evaluation Date of Evaluation: 01/08/18 Time of Evaluation: 10:55 - Subjective Subjective: F/U Abdominal pain/Colitis. Objective - Vital Signs/Intake and Output Vital Signs (last 24 hours): Temp Pulse Resp BP Pulse Ox 97.6 F 85 18 110/62 99 01/08/18 08:26 01/08/18 09:37 01/08/18 08:26 01/08/18 09:37 01/08/18 08:26 - Medications Medications: Current Medications Acetaminophen (Tylenol 325mg Tab) 650 mg PO Q4 PRN PRN Reason: Pain, moderate (4-7) Last Admin: 01/07/18 21:51 Dose: 650 mg Albuterol Sulfate (Albuterol 0.083% Inhal Tila (2.5 Mg/3 Ml) Ud) 2.5 mg IH RTID [facility] Last Admin: 01/08/18 13:11 Dose: 2.5 mg Alprazolam (Xanax) 0.5 mg PO TID PRN PRN Reason: Anxiety Last Admin: 01/08/18 11:17 Dose: 0.5 mg Amlodipine Besylate (Norvasc) 2.5 mg PO DAILY [facility] Last Admin: 01/08/18 09:37 Dose: Not Given Metronidazole (Flagyl 500mg/100ml Ns) 100 mls @ 100 mls/hr IVPB Q8 [facility] PRN Reason: Protocol Last Admin: 01/08/18 09:46 Dose: 100 mls/hr Dextrose/Sodium Chloride (Dextrose 5%/0.45% Ns 1000 Ml) 1,000 mls @ 80 mls/hr IV .[id number] [facility] Stop: 01/08/18 20:45 Last Admin: 01/08/18 09:46 Dose: 80 mls/hr Ipratropium [place] (Atrovent) 0.5 mg IH RTID [facility] Last Admin: 01/08/18 13:11 Dose: 0.5 mg Loratadine (Claritin) 10 mg PO DAILY [facility] Last Admin: 01/08/18 09:28 Dose: Not Given Mirtazapine (Remeron) 15 mg PO HS [facility] Last Admin: 01/07/18 21:43 Dose: 15 mg Olopatadine HCl (Patanol 0.1% Opht Soln) 1 drop OU DAILY [facility] Last Admin: 01/08/18 10:25 Dose: Not Given Ondansetron HCl (Zofran Inj) 4 mg IVP Q4 PRN PRN Reason: Nausea/Vomiting Last Admin: 01/08/18 10:43 Dose: 4 mg Pantoprazole Sodium (Protonix Inj) 40 mg IVP DAILY [facility] Last Admin: 01/08/18 09:46 Dose: 40 mg Vancomycin HCl (Vancocin (Oral/Rectal Use)) 250 mg PO QID [facility] PRN Reason: Protocol Last Admin: 01/08/18 12:59 Dose: 250 mg - Labs Labs: 01/07/18 05:20 01/07/18 05:20 PT 11.6 Seconds (9.8-13.1) 01/05/18 17:30 INR 1.0 (0.9-1.2) 01/05/18 17:30 APTT 32.8 Seconds (25.6-37.1) 01/05/18 17:30 - Constitutional Appears: Chronically Ill - Head Exam Head Exam: ATRAUMATIC, NORMAL INSPECTION - Eye Exam Eye Exam: PERRL - ENT Exam ENT Exam: Normal Exam - Neck Exam Neck Exam: Normal Inspection - Respiratory Exam Respiratory Exam: NORMAL BREATHING PATTERN - Cardiovascular Exam Cardiovascular Exam: REGULAR RHYTHM - GI/Abdominal Exam GI & Abdominal Exam: Soft, Normal Bowel Sounds. absent: Distended, Tenderness - Extremities Exam Extremities Exam: Normal Inspection - Back Exam Back Exam: NORMAL INSPECTION - Neurological Exam Neurological Exam: Alert, Oriented x3. absent: Motor Sensory Deficit - Psychiatric Exam Psychiatric exam: Anxious - Skin Skin Exam: Warm Assessment and Plan (1) Abdominal pain Status: Acute (2) Colitis Status: Acute (3) IBS (irritable bowel syndrome) Status: Chronic (4) COPD (chronic obstructive pulmonary disease) Status: Chronic (5) DMII (diabetes mellitus, type 2) Status: Chronic (6) Hypertension Status: Chronic (7) Anxiety Status: Chronic
[2018-01-08 23:34] VITALS: O2SAT 98
[2018-01-09 06:37] LABS: HEMOGLOBIN 11.3 g/dL (12.0-16.0); MEAN CELL VOLUME 81.6 fl (81.0-99.0); MEAN CORPUSCULAR HEMOGLOBIN 29.3 pg (27.0-31.0); MEAN CORPUSCULAR HGB CONC 35.9 g/dL (33.0-37.0); RBC 3.88 Mil/uL (3.80-5.20); RED CELL DISTRIBUTION WIDTH 13.1 % (11.5-14.5)
[2018-01-09 07:30] LABS: ALB/GLOB RATIO 1.2 (1.0-2.1); ALBUMIN 3.1 g/dL (3.5-5.0); ALT/SGPT 44 U/L (9-52); AST/SGOT 44 U/L (14-36); BLOOD UREA NITROGEN 8 mg/dl (7-17); CALCIUM 8.6 mg/dL (8.4-10.2); GFR NON-AFRICAN AMERICAN > 60
[2018-01-09 07:54] VITALS: BP 113/67; PULSE 82; TEMP 98.2
[2018-01-09] MEDS: Albuterol 0.083% Inhal Sol (2.5 mg/3 mL) UD IH SCH ×2 (07:56→13:17)
[2018-01-09] MEDS: Ipratropium 0.02% Inhal Soln (0.5 mg/2.5 ml) UD IH SCH (07:56)
--- NOTE | 2018-01-09 08:30 | CON ---
DATE: 01/06/2018 REFERRING DOCTOR: Colby Reardon MD REASON FOR CONSULTATION: Diarrhea, abdominal pain. HISTORY OF PRESENT ILLNESS: This is a 77-year-old female with history of diverticulitis, IBS, diabetes, COPD, hypertension who is brought in for abdominal pain and diarrhea IBS at baseline no fevers, no chills, no nausea or vomiting. diarrhea is the same. No rash or blood. Lying in bed comfortable, no apparent distress. PAST MEDICAL HISTORY: As above. PAST SURGICAL HISTORY: As above. MEDICATIONS: Reviewed. REVIEW OF SYSTEMS: All other systems have been reviewed and negative apart from the HPI. PHYSICAL EXAMINATION: VITAL SIGNS: Here in the hospital grossly unremarkable. GENERAL: This is otherwise a pleasant elderly appearing female, lying in bed comfortably, in no apparent distress. HEENT: Head is normocephalic and atraumatic. Eyes, pupils are equal,round, and reactive to light bilaterally. No conjunctival pallor or icterus. NECK: Supple. Normal range of motion. No lymphadenopathy appreciated. LUNGS: Coarse breath sounds bilaterally. HEART: S1 and S2, regular rate and rhythm. No murmur appreciated. ABDOMEN: Soft and nontender. Bowel sounds present. No rebound. No guarding. RECTAL: Deferred. EXTREMITIES: Pulses present bilaterally. SKIN: Warm, dry, and intact. NEUROLOGIC: A and O x3. LABORATORY DATA: All labs and radiology have been reviewed. WBC is 4.3, hemoglobin is 11.4. . CAT scan shows some diverticulosis, no . ASSESSMENT AND PLAN: This is a 77-year-old female with irritable bowel syndrome. . Recommend increasing Bentyl to three times a day to 20. Advance diet as tolerated. Discharge planning when able. Thank you for the consult. Jeffrey Aguiar MD/ PhD
[2018-01-09] MEDS: Olopatadine 0.1% Opht SOLN OU SCH (08:51)
--- NOTE | 2018-01-09 12:23 | CP.PCM.PN ---
Subjective - Date & Time of Evaluation Date of Evaluation: 01/09/18 Time of Evaluation: 12:22 - Subjective Subjective: no overnight events Objective - Vital Signs/Intake and Output Vital Signs (last 24 hours): Temp Pulse Resp BP Pulse Ox 98.2 F 82 18 113/67 98 01/09/18 07:54 01/09/18 08:52 01/09/18 07:54 01/09/18 08:52 01/09/18 07:54 - Medications Medications: Current Medications Acetaminophen (Tylenol 325mg Tab) 650 mg PO Q4 PRN PRN Reason: Pain, moderate (4-7) Last Admin: 01/07/18 21:51 Dose: 650 mg Albuterol Sulfate (Albuterol 0.083% Inhal Tila (2.5 Mg/3 Ml) Ud) 2.5 mg IH RTID [facility] Last Admin: 01/09/18 07:56 Dose: 2.5 mg Alprazolam (Xanax) 0.5 mg PO TID PRN PRN Reason: Anxiety Last Admin: 01/09/18 08:51 Dose: 0.5 mg Amlodipine Besylate (Norvasc) 2.5 mg PO DAILY [facility] Last Admin: 01/09/18 08:52 Dose: 2.5 mg Ipratropium [place] (Atrovent) 0.5 mg IH RTID [facility] Last Admin: 01/09/18 07:56 Dose: 0.5 mg Loratadine (Claritin) 10 mg PO DAILY [facility] Last Admin: 01/09/18 08:52 Dose: 10 mg Mirtazapine (Remeron) 15 mg PO HS [facility] Last Admin: 01/08/18 21:49 Dose: 15 mg Olopatadine HCl (Patanol 0.1% Opht Soln) 1 drop OU DAILY [facility] Last Admin: 01/09/18 08:51 Dose: Not Given Ondansetron HCl (Zofran Inj) 4 mg IVP Q4 PRN PRN Reason: Nausea/Vomiting Last Admin: 01/08/18 10:43 Dose: 4 mg Pantoprazole Sodium (Protonix Inj) 40 mg IVP DAILY [facility] Last Admin: 01/09/18 08:53 Dose: 40 mg - Labs Labs: 01/09/18 05:45 01/09/18 05:45 PT 11.6 Seconds (9.8-13.1) 01/05/18 17:30 INR 1.0 (0.9-1.2) 01/05/18 17:30 APTT 32.8 Seconds (25.6-37.1) 01/05/18 17:30 - Neck Exam Neck Exam: Normal Inspection - Respiratory Exam Respiratory Exam: Clear to Ausculation Bilateral, NORMAL BREATHING PATTERN - Cardiovascular Exam Cardiovascular Exam: REGULAR RHYTHM - GI/Abdominal Exam GI & Abdominal Exam: Soft, Normal Bowel Sounds Assessment and Plan - Assessment and Plan (Free Text) Assessment: 77 yo female with IBS anti-spasmodics dc planning
--- NOTE | 2018-01-09 15:45 | CP.PCM.DIS ---
Provider - Provider Date of Admission: 01/06/18 14:59 Attending physician: Colby Reardon MD Consults: Gastroenterology Time Spent in preparation of Discharge (in minutes): 35 Diagnosis - Discharge Diagnosis (1) Abdominal pain Status: Acute Priority: High (2) Colitis Status: Acute Priority: High (3) IBS (irritable bowel syndrome) Status: Chronic Priority: High (4) COPD (chronic obstructive pulmonary disease) Status: Chronic Priority: Medium (5) DMII (diabetes mellitus, type 2) Status: Chronic Priority: Medium (6) Hypertension Status: Chronic Priority: Medium (7) Anxiety Status: Chronic Priority: Medium Hospital Course - Lab Results Lab Results: Micro Results 01/07/18 11:30 Stool Ova and Parasite Concentrate Exam - Final 01/06/18 15:50 Stool Ova and Parasite Concentrate Exam - Final 01/05/18 21:30 Stool Ova and Parasite Concentrate Exam - Final 01/05/18 17:50 Blood Blood Culture - Preliminary NO GROWTH AFTER 3 DAYS 01/05/18 17:34 Blood Blood Culture - Preliminary NO GROWTH AFTER 3 DAYS 01/05/18 21:25 Stool Stool Culture - Final NO SALMONELLA, SHIGELLA OR CAMPYLOBACTER ISOLATED. 01/06/18 15:50 Stool Stool Culture - Final NO SALMONELLA, SHIGELLA OR CAMPYLOBACTER ISOLATED. 01/05/18 19:55 Urine Urine Culture - Final No Growth (<1,000 CFU/ML) Most Recent Lab Values WBC 3.0 K/uL (4.8-10.8) L 01/09/18 05:45 RBC 3.88 Mil/uL (3.80-5.20) 01/09/18 05:45 Hgb 11.3 g/dL (12.0-16.0) L 01/09/18 05:45 Hct 31.7 % (34.0-47.0) L 01/09/18 05:45 MCV 81.6 fl (81.0-99.0) 01/09/18 05:45 MCH 29.3 pg (27.0-31.0) 01/09/18 05:45 MCHC 35.9 g/dL (33.0-37.0) 01/09/18 05:45 RDW 13.1 % (11.5-14.5) 01/09/18 05:45 Plt Count 116 K/uL (130-400) L 01/09/18 05:45 MPV 6.9 fl (7.2-11.7) L 01/06/18 05:30 Neut % (Auto) 68.5 % (50.0-75.0) 01/06/18 05:30 Lymph % (Auto) 21.8 % (20.0-40.0) 01/06/18 05:30 [place] % (Auto) 8.2 % (0.0-10.0) 01/06/18 05:30 Eos % (Auto) 1.2 % (0.0-4.0) 01/06/18 05:30 Baso % (Auto) 0.3 % (0.0-2.0) 01/06/18 05:30 Neut # (Auto) 2.9 K/uL (1.8-7.0) 01/06/18 05:30 Lymph # (Auto) 0.9 K/uL (1.0-4.3) L 01/06/18 05:30 [place] # (Auto) 0.3 K/uL (0.0-0.8) 01/06/18 05:30 Eos # (Auto) 0.0 K/uL (0.0-0.7) 01/06/18 05:30 Baso # (Auto) 0.0 K/uL (0.0-0.2) 01/06/18 05:30 PT 11.6 Seconds (9.8-13.1) 01/05/18 17:30 INR 1.0 (0.9-1.2) 01/05/18 17:30 APTT 32.8 Seconds (25.6-37.1) 01/05/18 17:30 Sodium 144 mmol/l (132-148) 01/09/18 05:45 Potassium 3.9 MMOL/L (3.6-5.0) 01/09/18 05:45 Chloride 106 mmol/L (98-107) 01/09/18 05:45 Carbon Dioxide 31 mmol/L (22-30) H 01/09/18 05:45 Anion Gap 11 (10-20) 01/09/18 05:45 BUN 8 mg/dl (7-17) 01/09/18 05:45 Creatinine 0.7 mg/dl (0.7-1.2) 01/09/18 05:45 Est GFR ( Amer) > 60 01/09/18 05:45 Est GFR (Non-Af Amer) > 60 01/09/18 05:45 POC Glucose (mg/dL) 111 mg/dL (65-110) H 01/09/18 10:41 Random Glucose 97 mg/dL (65-105) 01/09/18 05:45 Lactic Acid 1.3 MMOL/L (0.7-2.1) 01/05/18 17:30 Calcium 8.6 mg/dL (8.4-10.2) 01/09/18 05:45 Total Bilirubin 0.7 mg/dl (0.2-1.3) 01/09/18 05:45 AST 44 U/L (14-36) H D 01/09/18 05:45 ALT 44 U/L (9-52) 01/09/18 05:45 Alkaline Phosphatase 80 U/L (38-126) 01/09/18 05:45 Total Protein 5.8 G/DL (6.3-8.2) L 01/09/18 05:45 Albumin 3.1 g/dL (3.5-5.0) L 01/09/18 05:45 Globulin 2.7 gm/dL (2.2-3.9) 01/09/18 05:45 Albumin/Globulin Ratio 1.2 (1.0-2.1) 01/09/18 05:45 Triglycerides 221 mg/DL (0-149) H D 01/06/18 05:30 Cholesterol 139 mg/dL (0-199) 01/06/18 05:30 LDL Cholesterol Direct 62 mg/dL (0-129) 01/06/18 05:30 HDL Cholesterol 29 MG/DL (30-70) L 01/06/18 05:30 Lipase 57 U/L (23-300) 01/05/18 17:30 Thyroxine (T4) 11.5 ug/dl (5.5-11.0) H 01/06/18 05:30 TSH 3rd Generation 2.18 mIU/ML (0.46-4.68) 01/06/18 05:30 Urine Color Straw (YELLOW) 01/06/18 11:20 Urine Clarity Clear (Clear) 01/06/18 11:20 Urine pH 7.0 (5.0-8.0) 01/06/18 11:20 Ur Specific [place] < 1.005 (1.003-1.030) 01/06/18 11:20 Urine Protein Negative mg/dL (NEGATIVE) 01/06/18 11:20 Urine Glucose (UA) Neg mg/dL (Normal) 01/06/18 11:20 Urine Ketones Negative mg/dL (NEGATIVE) 01/06/18 11:20 Urine Blood Small (NEGATIVE) 01/06/18 11:20 Urine Nitrate Negative (NEGATIVE) 01/06/18 11:20 Urine Bilirubin Negative (NEGATIVE) 01/06/18 11:20 Urine Urobilinogen 0.2-1.0 mg/dL (0.2-1.0) 01/06/18 11:20 Ur Leukocyte Esterase Neg [place]/uL (Negative) 01/06/18 11:20 Urine RBC (Auto) < 1 /hpf (0-3) 01/06/18 11:20 Urine WBC Clumps (Auto) Cancelled 01/05/18 17:58 Urine Microscopic WBC < 1 /hpf (0-5) 01/06/18 11:20 Ur Squamous Epith Cells Cancelled 01/05/18 17:58 Ur Transition Epith Cell Cancelled 01/05/18 17:58 Ur Renal Epithelial Cell Cancelled 01/05/18 17:58 Calcium Carbonate Cryst Cancelled 01/05/18 17:58 Calcium Phos Rand (Auto) Cancelled 01/05/18 17:58 Calcium Oxalate Crystal Cancelled 01/05/18 17:58 Leucine Crystals Cancelled 01/05/18 17:58 Cystine Crystals Cancelled 01/05/18 17:58 Uric Acid Crystals Cancelled 01/05/18 17:58 Triple Phos Crystals Cancelled 01/05/18 17:58 Tyrosine Crystals Cancelled 01/05/18 17:58 Other Crystals Cancelled 01/05/18 17:58 Amorphous Sediment Cancelled 01/05/18 17:58 Urine Bacteria Cancelled 01/05/18 17:58 Epithelial Casts (Auto) Cancelled 01/05/18 17:58 Fatty Casts Cancelled 01/05/18 17:58 Hyaline Casts Cancelled 01/05/18 17:58 Granular Casts (Auto) Cancelled 01/05/18 17:58 Waxy Casts Cancelled 01/05/18 17:58 Broad Casts Cancelled 01/05/18 17:58 RBC Casts Cancelled 01/05/18 17:58 WBC Casts Cancelled 01/05/18 17:58 Other Casts Cancelled 01/05/18 17:58 Urine Trichomonas Cancelled 01/05/18 17:58 Ur Yeast w Hyphae Cancelled 01/05/18 17:58 Urine Yeast (Budding) Cancelled 01/05/18 17:58 Urine Sperm (Auto) Cancelled 01/05/18 17:58 Ur Oval Fat Bodies Auto Cancelled 01/05/18 17:58 Stool Occult Blood Positive (NEGATIVE) H 01/05/18 17:58 Stool Leukocytes, Qual Negative (NEGATIVE) 01/06/18 09:30 C. difficile Ag & Toxin Negative (NEGATIVE) 01/07/18 11:30 Blood Type A POSITIVE 01/05/18 17:50 Antibody Screen Negative 01/05/18 17:50 BBK History Checked Patient has bt 01/05/18 17:50 - Date & Time of H&P Date of H&P: 01/06/18 Time of H&P: 15:00 Discharge Exam - Head Exam Head Exam: ATRAUMATIC, NORMAL INSPECTION - Eye Exam Eye Exam: PERRL - ENT Exam ENT Exam: Normal Exam - Neck Exam Neck exam: Normal Inspection - Respiratory Exam Respiratory Exam: NORMAL BREATHING PATTERN - Cardiovascular Exam Cardiovascular Exam: REGULAR RHYTHM - GI/Abdominal Exam GI & Abdominal Exam: Normal Bowel Sounds, Soft. absent: Distended, Tenderness - Extremities Exam Extremities exam: normal inspection - Back Exam Back exam: NORMAL INSPECTION - Neurological Exam Neurological exam: Alert, Oriented x3 Additional comments: No motor sensory deficit. - Psychiatric Exam Psychiatric exam: Anxious - Skin Skin Exam: Warm Discharge Plan - Discharge Medications Prescriptions: Metronidazole [Flagyl] 500 mg PO TID #15 tablet - Follow Up Plan Condition: STABLE Disposition: HOME/ ROUTINE Patient education suggested?: Yes Instructions: Diarrhea in Adolescents and Adults, Acute Abdomen (Belly Pain), Adult (DC) Additional Instructions: hacer marky con olivares doctor primario y con Dr Cosme kirkland 1 semana Referrals: Jeffrey Aguiar MD, PhD [Staff Provider] - Colby Reardon MD [Family Provider] -
== END 2018-01-09 14:20 | disposition home or self-care (01) | DRG 392 ==
LOC: H.ER 16:05 → H.ERHOLD 21:29 → H.MEDSURG1 23:55 → OBSVTOIN 01-06 14:59 → H.MEDSURG1 01-08 18:11
PROVIDERS: ADMIT Internal Medicine Pulmonary Disease; ATTEND Internal Medicine Pulmonary Disease
DX: K58.0 Irritable bowel syndrome with diarrhea (principal); E11.9 Type 2 diabetes mellitus without complications; I10 Essential (primary) hypertension; J43.9 Emphysema, unspecified; K29.70 Gastritis, unspecified, without bleeding; K21.9 Gastro-esophageal reflux disease without esophagitis; F41.9 Anxiety disorder, unspecified; E78.00 Pure hypercholesterolemia, unspecified; G43.909 Migraine, unspecified, not intractable, without status migrainosus; M81.0 Age-related osteoporosis without current pathological fracture; K52.9 Noninfective gastroenteritis and colitis, unspecified; F32.9 Major depressive disorder, single episode, unspecified; M19.90 Unspecified osteoarthritis, unspecified site; Z88.6 Allergy status to analgesic agent; Z88.1 Allergy status to other antibiotic agents; Z88.3 Allergy status to other anti-infective agents

== ENCOUNTER 2018-02-18 15:51 | Inpatient (IN) | payer MEDICARE, MEDICAID ==
[2018-02-18 15:51] VITALS: BMI 18.3
[2018-02-18] MEDS ORDERED: Iohexol 240 (50 ml) PO ONE (16:50)
[2018-02-18] MEDS ORDERED: Sodium Chloride 0.9% 1,000 ML IV STA (16:50)
[2018-02-18] MEDS ORDERED: Barium Sulfate Susp 2.1% w/v, 2.0% w/w 450 mL Bottle PO ONE ×3 (17:04→17:05)
--- NOTE | 2018-02-18 17:10 | ED PDOC ---
HPI: Abdomen Chief Complaint (Provider): Abdominal pain History Per: Family History/Exam Limitations: language barrier Onset/Duration Of Symptoms: Days Outside of [place] travel?: No Current Symptoms Are (Timing): Still Present Location Of Pain/Discomfort: Diffuse Quality Of Discomfort: Sharp Associated Symptoms: Nausea, Diarrhea Last Bowel Movement: Days Ago <Reshma Dennis - Last Filed: 02/18/18 19:00> <Gerson Matias - Last Filed: 02/18/18 22:06> Time Seen by Provider: 02/18/18 16:27 Chief Complaint (Nursing): Abdominal Pain Additional Complaint(s): Pt is a 78 yo F here for abdominal pain and diarrhea. Patient was previously admitted in December for colitis she was on Flagyl and Vanc while here and discharged on antibiotics, patient was supposed to follow up with her GI Dr. Snider but didn't, her PMD is Dr. Colby Reardon . Since discharge she hasn't felt back to her base line and within the last week her symptoms have progressively gotten worse, she states she had been constipated for 3 days and now has diarrhea 3x since last night. She also has nausea, loss of appetite, denies gas pain, vomiting, and SOB. (Reshma Dennis) Supervising Attending Note <Reshma Dennis - Last Filed: 02/18/18 19:00> - Supervising Attending Note The Documented history was done by the: Physician Program Specialist The documented physical exam was done by the: Physician Program Specialist The documented procedures were done by the: Physician Program Specialist - Attestation: I have personally seen and examined this patient.: Yes I have fully participated in the care of the patient.: Yes I have reviewed all pertinent clinical information: Yes <Gerson Matias - Last Filed: 02/18/18 22:06> - Notes: Notes:: Abd pain; nausea. (Gerson Matias) Past Medical History - Medical History PMH: Anemia, Anxiety, Arthritis, Asthma, COPD, Depression, Diabetes (Type II), Diverticulitis, Emphysema, Gastritis, GERD, HTN, Hypercholesterolemia, Migraine , Osteoporosis Denies: HIV, Chronic Kidney Disease - Surgical History Surgical History: Cholecystectomy, - Family History Family History: States: Unknown Family Hx - Social History Current smoker - smoking cessation education provided: No Alcohol: None Drugs: Denies <SonnyReshma - Last Filed: 02/18/18 19:00> <Gerson Matias - Last Filed: 02/18/18 22:06> Vital Signs: Last Vital Signs Temp 97.9 F 02/18/18 16:06 Pulse 81 02/18/18 16:06 Resp 18 02/18/18 16:06 BP 128/63 02/18/18 16:06 Pulse Ox 100 02/18/18 19:00 - Home Medications Home Medications: Ambulatory Orders Medication Instructions Recorded Albuterol 0.083% [Albuterol 0.083% 3 ml IH TID 02/13/16 Inhal Tila (2.5 mg/3 ml) UD] Alprazolam [Xanax] 0.5 mg PO TID 02/13/16 Hyoscyamine [Levsin] 0.125 mg PO DAILY 02/13/16 Ipratropium 0.02% [Atrovent] 0.5 mg IH TID 02/13/16 Meclizine HCl [Antivert] 25 mg PO TID PRN 02/13/16 Mirtazapine [Remeron] 15 mg PO DAILY 02/13/16 Nateglinide [Starlix] 60 mg PO BID 02/13/16 Valsartan [Diovan] 160 mg PO BID 02/13/16 cloNIDine [Catapres] 0.1 mg PO DAILY 02/13/16 Albuterol/Ipratropium [Combivent 1 puff INH Q4 01/05/18 Respimat] Loratadine [Allerclear] 10 mg PO DAILY 01/05/18 Olopatadine 0.1% Opht [Patanol 1 drop OU DAILY 01/05/18 0.1% Opht Soln] Omeprazole 20 mg PO DAILY 01/05/18 Ondansetron [Zofran Tab] 4 mg PO Q4 PRN 01/05/18 Promethazine [Phenergan Syrup] 5 ml PO Q4 PRN 01/05/18 Terconazole 1 appl TOP DAILY 01/05/18 amLODIPine [Norvasc] 2.5 mg PO DAILY 01/05/18 Metronidazole [Flagyl] 500 mg PO TID #15 tablet 01/09/18 - Allergies Allergies/Adverse Reactions: Allergies Allergy/AdvReac Type Severity Reaction Status Date / Time aspirin Allergy SHORTNESS Verified 02/18/18 15:58 OF BREATH azithromycin [From Zithromax] Allergy RASH Verified 02/18/18 15:58 budesonide [From Symbicort] Allergy RASH Verified 02/18/18 15:58 calcium Allergy RASH Verified 02/18/18 15:58 ciprofloxacin [From Cipro] Allergy ITCHING Verified 02/18/18 15:58 ciprofloxacin HCl Allergy ITCHING Verified 02/18/18 15:58 [From Cipro] codeine Allergy SHORTNESS Verified 02/18/18 15:58 OF BREATH formoterol fumarate Allergy RASH Verified 02/18/18 15:58 [From Symbicort] iodine Allergy RASH Verified 02/18/18 15:58 latex Allergy RASH Verified 02/18/18 15:58 lidocaine Allergy unknown Verified 01/05/18 16:15 Penicillins Allergy RASH Verified 01/05/18 16:15 Sulfa (Sulfonamide Allergy RASH Verified 01/05/18 16:15 Antibiotics) tetracycline Allergy RASH Verified 01/05/18 16:15 cranberry AdvReac DIARRHEA Verified 01/06/18 00:27 erthromycin Allergy RASH Uncoded 01/05/18 16:15 Review of Systems Gastrointestinal: Positive for: Nausea, Abdominal Pain, Diarrhea Psych: Positive for: Anxiety <Reshma Dennis - Last Filed: 02/18/18 19:00> Physical Exam - Physical Exam Appears: Positive for: Non-toxic, Uncomfortable Head Exam: Positive for: ATRAUMATIC, NORMAL INSPECTION, NORMOCEPHALIC Skin: Positive for: Normal Color Eye Exam: Positive for: Normal appearance, EOMI, PERRL ENT: Positive for: Normal ENT Inspection Neck: Positive for: Normal Cardiovascular/Chest: Positive for: Regular Rate, Rhythm Respiratory: Positive for: Normal Breath Sounds Gastrointestinal/Abdominal: Positive for: Bowel Sounds (Increased), Tenderness ( Epigastric and LLQ) Neurologic/Psych: Positive for: Alert, Oriented <Reshma Dennis - Last Filed: 02/18/18 19:00> - Physical Exam Cardiovascular/Chest: Positive for: Regular Rate, Rhythm Respiratory: Positive for: Normal Breath Sounds Gastrointestinal/Abdominal: Positive for: Tenderness <Gerson Matias - Last Filed: 02/18/18 22:06> - Laboratory Results Result Diagrams: 02/18/18 17:50 02/18/18 17:50 - ECG O2 Sat by Pulse Oximetry: 100 <Reshma Dennis - Last Filed: 02/18/18 19:00> - Laboratory Results Result Diagrams: 02/18/18 17:50 02/18/18 17:50 Interpretation Of Abn Labs: no acute - ECG Pulse Ox Interpretation: Normal <Gerson Matias - Last Filed: 02/18/18 22:06> - Progress ED Course And Treament: Pt is a 78 yo F presented for abdominal pain and diarrhea r/o colitis -Abdomen Pelvis CT with PO Barium Sulfate contrast -NS 1 L -CBC -CMP -Lipase -Xanax 0.5mg Once -Pending results of CT scan (Reshma Dennis) 1005: Stable. AAOx3. Pain present and diarrhea. Spoke with Dr. Reardon. Will admit obs and give further orders when pt. reaches floor. (Gerson Matias) Disposition - Disposition Disposition: Transfer of Care Disposition Time: 19:00 <Reshma Dennis - Last Filed: 02/18/18 19:00> - Patient ED Disposition Is Patient to be Admitted: Yes <Gerson Matias - Last Filed: 02/18/18 22:06> - Clinical Impression Clinical Impression: Abdominal pain - Disposition Condition: FAIR
[2018-02-18 17:54] LABS: BASO % 0.7 % (0.0-2.0); EOS % 1.1 % (0.0-4.0); HEMOGLOBIN 13.3 g/dL (12.0-16.0); LYMPH # 1.4 K/uL (1.0-4.3); MEAN CELL VOLUME 82.9 fl (81.0-99.0); MEAN CORPUSCULAR HEMOGLOBIN 28.5 pg (27.0-31.0); MEAN CORPUSCULAR HGB CONC 34.4 g/dL (33.0-37.0); MEAN PLATELET VOLUME 6.9 fl (7.2-11.7); MONO # 0.3 K/uL (0.0-0.8); MONO % 5.8 % (0.0-10.0); NEUT # 2.8 K/uL (1.8-7.0); NEUT % 61.4 % (50.0-75.0); RBC 4.66 Mil/uL (3.80-5.20); RED CELL DISTRIBUTION WIDTH 13.1 % (11.5-14.5); WHITE BLOOD COUNT 4.5 K/uL (4.8-10.8)
[2018-02-18 18:05] LABS: ALB/GLOB RATIO 1.4 (1.0-2.1); ALBUMIN 4.3 g/dL (3.5-5.0); ALT/SGPT 25 U/L (9-52); AST/SGOT 24 U/L (14-36); BLOOD UREA NITROGEN 9 mg/dl (7-17); CALCIUM 9.5 mg/dL (8.4-10.2); GFR NON-AFRICAN AMERICAN > 60; LIPASE 45 U/L (23-300)
[2018-02-18] MEDS ORDERED: Albuterol-Ipratrop 3 mg / 0.5 (3 ml) UD IH STA (20:10)
[2018-02-18] MEDS ORDERED: Albuterol-Ipratrop 3 mg / 0.5 (3 ml) UD ONE (20:13)
--- NOTE | 2018-02-18 21:11 | CT ---
EXAM: CT Abdomen and Pelvis With Intravenous Contrast EXAM DATE/TIME: 02/18/2018 5:03 PM CLINICAL HISTORY: 78 years old, female; Pain; Abdominal pain; Generalized TECHNIQUE: Axial computed tomography images of the abdomen and pelvis with intravenous contrast. All CT scans at this facility use at least one of these dose optimization techniques: automated exposure control; mA and/or kV adjustment per patient size (includes targeted exams where dose is matched to clinical indication); or iterative reconstruction. Coronal and sagittal reformatted images were created and reviewed. COMPARISON: CT - ABD PELVIS PO CONTRAST ONLY 01/05/2018 8:09 PM FINDINGS: Lung bases: The heart is mildly enlarged. There are coronary artery calcifications. There is a small hiatal hernia. There is dependent atelectasis at the lung bases. There is scarring at the lung bases. ABDOMEN: Liver: unremarkable Gallbladder and bile ducts: Gallbladder is absent. Common duct is dilated to 10 mm in diameter Pancreas: Pancreas is mildly atrophic. Spleen: unremarkable Adrenals: unremarkable Kidneys and ureters: unremarkable Stomach and bowel: Stomach is distended with contrast and air. Rotation is normal. There is contrast and air throughout the small bowel. Ileocecal region is unremarkable. Appendix and terminal ileum are unremarkable. Colon is incompletely distended which limits evaluation.There is diverticulosis. There is mild sigmoid wall thickening in the region of diverticulosis PELVIS: Appendix: See stomach and bowel Bladder: unremarkable Reproductive: Uterus is atrophic. There are no adnexal masses. ABDOMEN and PELVIS: Intraperitoneal space: There is no free air or free fluid. Bones/joints: Bony structures are osteopenic. There are degenerative changes. There is a mild convex left lumbar curve. Soft tissues: unremarkable Vasculature: There are vascular calcifications. Lymph nodes: There is shotty adenopathy. IMPRESSION: Dilated common duct status post cholecystectomy; no acute solid visceral abnormality; diverticulosis without CT findings of diverticulitis Additional nonemergent findings as described above.
[2018-02-18] MEDS ORDERED: Sodium Chloride 0.9% 500 ML IV STA (23:43)
[2018-02-19] MEDS ORDERED: Hydrocortisone 2.5% (Rectal) CREAM PR PRN (02:34)
[2018-02-19] MEDS ORDERED: Promethazine 6.25 MG/5 ML CUP PO PRN (02:34)
[2018-02-19] MEDS ORDERED: Terconazole 7 cream 45gm VAG PRN (02:34)
[2018-02-19] MEDS ORDERED: Albuterol 0.083% Inhal Sol (2.5 mg/3 mL) UD INH PRN (02:43)
[2018-02-19] MEDS ORDERED: Sodium Chloride 0.9% 1,000 ML IV SCH (02:45)
[2018-02-19] MEDS ORDERED: Dextrose 50% SYRINGE Inj (50 ml) IV PRN (02:47)
[2018-02-19] MEDS ORDERED: Glucagon Recombinant 1 mg Inj IM PRN (02:47)
[2018-02-19] MEDS: Insulin Lispro (humaLOG) 100 Units/ml Inj SC SCH ×4 (06:59→22:42)
[2018-02-19 07:04] LABS: HEMOGLOBIN 11.1 g/dL (12.0-16.0); MEAN CELL VOLUME 82.3 fl (81.0-99.0); MEAN CORPUSCULAR HEMOGLOBIN 28.7 pg (27.0-31.0); MEAN CORPUSCULAR HGB CONC 34.9 g/dL (33.0-37.0); RBC 3.85 Mil/uL (3.80-5.20); RED CELL DISTRIBUTION WIDTH 13.2 % (11.5-14.5); WHITE BLOOD COUNT 3.5 K/uL (4.8-10.8)
[2018-02-19 07:05] LABS: PROTHROMBIN TIME 11.6 Seconds (9.8-13.1)
[2018-02-19 07:06] LABS: PARTIAL THROMBOPLASTIN TIME 30.8 Seconds (25.6-37.1)
[2018-02-19] MEDS: Ipratropium 0.02% Inhal Soln (0.5 mg/2.5 ml) UD IH SCH ×3 (07:09→19:09)
[2018-02-19] MEDS: Albuterol 0.083% Inhal Sol (2.5 mg/3 mL) UD IH SCH ×3 (07:09→19:08)
[2018-02-19 07:10] LABS: ALB/GLOB RATIO 1.3 (1.0-2.1); ALBUMIN 3.1 g/dL (3.5-5.0); ALT/SGPT 25 U/L (9-52); AST/SGOT 21 U/L (14-36); BLOOD UREA NITROGEN 6 mg/dl (7-17); CALCIUM 8.3 mg/dL (8.4-10.2); GFR NON-AFRICAN AMERICAN > 60; HDL CHOLESTEROL 31 MG/DL (30-70)
[2018-02-19 07:19] LABS: LDL CHOLESTEROL 91 mg/dL (0-129)
[2018-02-19 07:20] LABS: URINE BILIRUBIN NEGATIVE (NEGATIVE); URINE BLOOD SMALL (NEGATIVE); URINE CLARITY CLEAR (Clear); URINE COLOR LIGHT YELLOW (YELLOW); URINE GLUCOSE (UA) NEG (Normal); URINE LEUKOCYTE ESTERASE NEG Leu/uL (Negative); URINE PROTEIN NEGATIVE (NEGATIVE); URINE UROBILINOGEN 0.2-1.0 mg/dL (0.2-1.0)
[2018-02-19 07:22] LABS: T4 9.36 ug/dl (5.5-11.0)
[2018-02-19] MEDS: Pantoprazole 20 mg EC Tab PO SCH ×2 (09:10→18:30)
[2018-02-19] MEDS: Olopatadine 0.1% Opht SOLN OU SCH ×2 (09:10→09:29)
[2018-02-19] MEDS: Hyoscyamine 0.125 mg SL Tab SL SCH ×2 (09:11→09:29)
[2018-02-19] MEDS: metroNIDAZOLE 500mg/100ml NS 100 ML IVPB SCH ×2 (09:13→16:04)
[2018-02-19] MEDS ORDERED: KCL 40MEQ/NS 1L 1,000 ML IV SCH (16:15)
--- NOTE | 2018-02-19 19:01 | CP.PCM.HP ---
History of Present Illness - History of Present Illness History of Present Illness: CC: Abdominal pain. 78 y/o F with multiple chronic medical conditions including IBS, Diverticulitis , COPD, HTN, Pt came to [facility] on 02/18/18 to be evaluated for gradually increased intermittent generalized abdominal pain, that began one week [employer] , but on DOA, Pt c/o of abdominal pain, more prominent to lower quadrants, described as sharp, cramping, moderate intensity 5:10, associated to nausea and diarrhea on day [employer] with no improvement. Pt states she was constipated for 3 days before diarrhea started. Hx of been AD past December 2017 for Colitis treated with Flagyl and Vanco. Patient did not follow up with GI as out patient. Worsening symptoms: Lack of appetite. Aggravated factor; ADL's Pt denied: fever, chills, vomiting, urinary symptoms, CP, palpitations, syncope , numbness, sick contact, recent travel out of [facility]. CT Abd/Pelv: Diverticulosis, no diverticulitis., dilated duct s/p cholecystectomy. Present on Admission - Present on Admission Any Indicators Present on Admission: No Review of Systems - Constitutional Constitutional: Other (negative) - EENT Eyes: Other (negative) Ears: Other (negative) Nose/Mouth/Throat: Other (negative) - Cardiovascular Cardiovascular: Other (negative) - Respiratory Respiratory: Other (negative) - Gastrointestinal Gastrointestinal: Abdominal Pain, Diarrhea, Nausea - Genitourinary Genitourinary: Other (negatie) - Musculoskeletal Musculoskeletal: Arthralgias - Integumentary Integumentary: Other (negative) - Neurological Neurological: Other (negative) - Psychiatric Psychiatric: Anxiety - Endocrine Endocrine: Other (negative) - Hematologic/Lymphatic Hematologic: Other (negative) Past Patient History - Infectious Disease Hx of Infectious Diseases: None - Past Medical History & Family History Past Medical History?: Yes Pertinent Family History: Unknown - Past Social History Smoking Status: Never Smoked Alcohol: None Drugs: Denies Home Situation {Lives}: With Family - CARDIAC Hx Cardiac Disorders: Yes Hx Hypercholesterolemia: Yes Hx Hypertension: Yes - PULMONARY Hx Respiratory Disorders: Yes Hx Asthma: Yes Hx Chronic Obstructive Pulmonary Disease (COPD): Yes Hx Emphysema: Yes - NEUROLOGICAL Hx Neurological Disorder: Yes Hx Migraine: Yes - HEENT Hx HEENT Problems: Yes Other/Comment: Uses eyeglasses - RENAL Hx Chronic Kidney Disease: No - ENDOCRINE/METABOLIC Hx Endocrine Disorders: Yes Hx Diabetes Mellitus Type 2: Yes - HEMATOLOGICAL/ONCOLOGICAL Hx Blood Disorders: Yes Hx AIDS: No Hx Anemia: Yes Hx Human Immunodeficiency Virus (HIV): No - INTEGUMENTARY Hx Dermatological Problems: No - MUSCULOSKELETAL/RHEUMATOLOGICAL Hx Musculoskeletal Disorders: Yes Hx Arthritis: Yes Hx Falls: Yes Hx Osteoporosis: Yes - GASTROINTESTINAL Hx Gastrointestinal Disorders: Yes Hx Diarrhea: Yes Hx Diverticulitis: Yes Hx Gastritis: Yes Hx Irritable Bowel: Yes - GENITOURINARY/GYNECOLOGICAL Hx Genitourinary Disorders: No - PSYCHIATRIC Hx Psychophysiologic Disorder: Yes Hx Anxiety: Yes Hx Depression: Yes Hx Substance Use: No - SURGICAL HISTORY Hx Surgeries: Yes Hx Cholecystectomy: Yes - ANESTHESIA Hx Anesthesia: Yes Hx Anesthesia Reactions: No Hx Malignant Hyperthermia: No Meds Allergies/Adverse Reactions: Allergies Allergy/AdvReac Type Severity Reaction Status Date / Time aspirin Allergy SHORTNESS Verified 02/18/18 15:58 OF BREATH azithromycin [From Zithromax] Allergy RASH Verified 02/18/18 15:58 budesonide [From Symbicort] Allergy RASH Verified 02/18/18 15:58 calcium Allergy RASH Verified 02/18/18 15:58 ciprofloxacin [From Cipro] Allergy ITCHING Verified 02/18/18 15:58 ciprofloxacin HCl Allergy ITCHING Verified 02/18/18 15:58 [From Cipro] codeine Allergy SHORTNESS Verified 02/18/18 15:58 OF BREATH formoterol fumarate Allergy RASH Verified 02/18/18 15:58 [From Symbicort] iodine Allergy RASH Verified 02/18/18 15:58 latex Allergy RASH Verified 02/18/18 15:58 lidocaine Allergy unknown Verified 01/05/18 16:15 Penicillins Allergy RASH Verified 01/05/18 16:15 Sulfa (Sulfonamide Allergy RASH Verified 01/05/18 16:15 Antibiotics) tetracycline Allergy RASH Verified 01/05/18 16:15 cranberry AdvReac DIARRHEA Verified 01/06/18 00:27 erthromycin Allergy RASH Uncoded 01/05/18 16:15 Physical Exam - Constitutional Appears: No Acute Distress - Head Exam Head Exam: NORMAL INSPECTION - Eye Exam Eye Exam: PERRL - ENT Exam ENT Exam: Normal Exam - Neck Exam Neck exam: Positive for: Normal Inspection - Respiratory Exam Respiratory Exam: Clear to Auscultation Bilateral - Cardiovascular Exam Cardiovascular Exam: REGULAR RHYTHM - GI/Abdominal Exam GI & Abdominal Exam: Normal Bowel Sounds, Soft - Extremities Exam Extremities exam: Positive for: normal inspection - Back Exam Back exam: NORMAL INSPECTION - Neurological Exam Neurological exam: Alert, CN II-XII Intact, Oriented x3 Additional comments: no focal motor/sensory deficit - Psychiatric Exam Psychiatric exam: Anxious - Skin Skin Exam: Warm Results - Vital Signs Recent Vital Signs: Last Vital Signs Temp 97.6 F 02/19/18 16:20 Pulse 82 02/19/18 16:20 Resp 20 02/19/18 16:20 BP 115/61 02/19/18 16:20 Pulse Ox 99 02/19/18 16:20 reviewed Trae - Labs Result Diagrams: 02/19/18 05:30 02/20/18 05:30 Labs: Laboratory Results - last 24 hr 02/18/18 02/19/18 02/19/18 17:43 00:03 05:30 WBC RBC Hgb Hct MCV MCH MCHC RDW Plt Count PT 11.6 INR 1.0 APTT 30.8 Sodium Potassium Chloride Carbon Dioxide Anion Gap BUN Creatinine Est GFR ( Amer) Est GFR (Non-Af Amer) POC Glucose (mg/dL) 82 86 Random Glucose Hemoglobin A1c Calcium Total Bilirubin AST ALT Alkaline Phosphatase Total Protein Albumin Globulin Albumin/Globulin Ratio Triglycerides Cholesterol LDL Cholesterol Direct HDL Cholesterol Thyroxine (T4) TSH 3rd Generation Urine Color Urine Clarity Urine pH Ur Specific [place] Urine Protein Urine Glucose (UA) Urine Ketones Urine Blood Urine Nitrate Urine Bilirubin Urine Urobilinogen Ur Leukocyte Esterase Urine RBC (Auto) Urine Microscopic WBC C. difficile Ag & Toxin 02/19/18 02/19/18 02/19/18 05:30 05:30 05:30 WBC 3.5 L RBC 3.85 Hgb 11.1 L D Hct 31.7 L MCV 82.3 MCH 28.7 MCHC 34.9 RDW 13.2 Plt Count 117 L D PT INR APTT Sodium 141 Potassium 3.3 L Chloride 112 H Carbon Dioxide 27 Anion Gap 5 L BUN 6 L Creatinine 0.6 L Est GFR ( Amer) > 60 Est GFR (Non-Af Amer) > 60 POC Glucose (mg/dL) Random Glucose 89 Hemoglobin A1c 5.0 Calcium 8.3 L Total Bilirubin 0.5 AST 21 ALT 25 Alkaline Phosphatase 48 Total Protein 5.4 L Albumin 3.1 L D Globulin 2.4 Albumin/Globulin Ratio 1.3 Triglycerides 127 D Cholesterol 151 LDL Cholesterol Direct 91 HDL Cholesterol 31 Thyroxine (T4) 9.36 TSH 3rd Generation 1.15 Urine Color Urine Clarity Urine pH Ur Specific [place] Urine Protein Urine Glucose (UA) Urine Ketones Urine Blood Urine Nitrate Urine Bilirubin Urine Urobilinogen Ur Leukocyte Esterase Urine RBC (Auto) Urine Microscopic WBC C. difficile Ag & Toxin 02/19/18 02/19/18 02/19/18 05:34 07:00 10:44 WBC RBC Hgb Hct MCV MCH MCHC RDW Plt Count PT INR APTT Sodium Potassium Chloride Carbon Dioxide Anion Gap BUN Creatinine Est GFR ( Amer) Est GFR (Non-Af Amer) POC Glucose (mg/dL) 86 90 Random Glucose Hemoglobin A1c Calcium Total Bilirubin AST ALT Alkaline Phosphatase Total Protein Albumin Globulin Albumin/Globulin Ratio Triglycerides Cholesterol LDL Cholesterol Direct HDL Cholesterol Thyroxine (T4) TSH 3rd Generation Urine Color Light yellow Urine Clarity Clear Urine pH 6.0 Ur Specific [place] 1.006 Urine Protein Negative Urine Glucose (UA) Neg Urine Ketones Negative Urine Blood Small Urine Nitrate Negative Urine Bilirubin Negative Urine Urobilinogen 0.2-1.0 Ur Leukocyte Esterase Neg Urine RBC (Auto) 4 H Urine Microscopic WBC 2 C. difficile Ag & Toxin 02/19/18 02/19/18 02/19/18 16:34 17:24 18:04 WBC RBC Hgb Hct MCV MCH MCHC RDW Plt Count PT INR APTT Sodium Potassium Chloride Carbon Dioxide Anion Gap BUN Creatinine Est GFR ( Amer) Est GFR (Non-Af Amer) POC Glucose (mg/dL) 77 129 H Random Glucose Hemoglobin A1c Calcium Total Bilirubin AST ALT Alkaline Phosphatase Total Protein Albumin Globulin Albumin/Globulin Ratio Triglycerides Cholesterol LDL Cholesterol Direct HDL Cholesterol Thyroxine (T4) TSH 3rd Generation Urine Color Urine Clarity Urine pH Ur Specific [place] Urine Protein Urine Glucose (UA) Urine Ketones Urine Blood Urine Nitrate Urine Bilirubin Urine Urobilinogen Ur Leukocyte Esterase Urine RBC (Auto) Urine Microscopic WBC C. difficile Ag & Toxin Positive antigen reviewed j.P. - Imaging and Cardiology CT scan - pelvis Status: Report reviewed by me (J.P.) CT scan - abdomen Status: Report reviewed by me (J.P.) Assessment & Plan (1) Abdominal pain Status: Acute Priority: High (2) Diarrhea Status: Acute Priority: High (3) IBS (irritable bowel syndrome) Status: Chronic Priority: High (4) HTN (hypertension) Status: Chronic Priority: High (5) DM (diabetes mellitus) Status: Chronic Priority: Medium (6) Hypokalemia Status: Acute (7) Anxiety Status: Chronic Priority: Medium (8) Depression Status: Chronic Priority: Medium - Assessment and Plan (Free Text) Plan: Flagyl IV, K replacement, f/u stool CDiff, O&B, O&P,C-S, BP, BS control, Albuterol/Atyrovent neb - Date & Time Date: 02/19/18 Time: 15:30
[2018-02-19] MEDS ORDERED: Potassium Chloride 20 mEq ER Tab PO ONE (21:43)
[2018-02-19] MEDS: Vancomycin 500 mg (Oral/Rectal USE) PO SCH (22:25)
[2018-02-19] MEDS: Sodium Chloride 0.9% 1,000 ML IV SCH (22:43)
[2018-02-20] MEDS: metroNIDAZOLE 500mg/100ml NS 100 ML IVPB SCH ×2 (00:07→08:42)
[2018-02-20] MEDS ORDERED: Potassium Chl 20 mEq in NS 1,000 ML IV SCH (03:30)
[2018-02-20] MEDS: Vancomycin 500 mg (Oral/Rectal USE) PO SCH ×3 (05:05→09:03)
[2018-02-20 06:09] LABS: BLOOD UREA NITROGEN 7 mg/dl (7-17); CALCIUM 8.3 mg/dL (8.4-10.2); GFR NON-AFRICAN AMERICAN > 60
[2018-02-20] MEDS: Insulin Lispro (humaLOG) 100 Units/ml Inj SC SCH ×3 (06:36→16:06)
[2018-02-20] MEDS: Pantoprazole 20 mg EC Tab PO SCH ×2 (08:42→16:09)
[2018-02-20] MEDS: Hyoscyamine 0.125 mg SL Tab SL SCH ×2 (08:43→08:49)
[2018-02-20] MEDS: Olopatadine 0.1% Opht SOLN OU SCH (08:44)
[2018-02-20] MEDS: Sodium Chloride 0.9% 1,000 ML IV SCH ×3 (08:44→18:04)
[2018-02-20] MEDS ORDERED: Potassium Chloride 20 mEq ER Tab PO ONE (09:00)
[2018-02-20] MEDS: Albuterol 0.083% Inhal Sol (2.5 mg/3 mL) UD IH SCH ×3 (09:09→19:58)
[2018-02-20] MEDS: Ipratropium 0.02% Inhal Soln (0.5 mg/2.5 ml) UD IH SCH ×3 (09:09→19:58)
--- NOTE | 2018-02-20 16:10 | CP.PCM.PN ---
Subjective - Date & Time of Evaluation Date of Evaluation: 02/20/18 Time of Evaluation: 10:40 - Subjective Subjective: F/U Abdominal pain no abdominal pain, no N/V, no diarrhea Objective - Vital Signs/Intake and Output Vital Signs (last 24 hours): Temp Pulse Resp BP Pulse Ox 97.6 F 86 20 120/67 97 02/20/18 16:02/20/18 16:02/20/18 16:02/20/18 16:02/20/18 16:09 - Medications Medications: Current Medications Acetaminophen (Tylenol 325mg Tab) 650 mg PO Q6 PRN PRN Reason: Headache Last Admin: 02/20/18 14:25 Dose: 650 mg Albuterol Sulfate (Albuterol 0.083% Inhal Tila (2.5 Mg/3 Ml) Ud) 2.5 mg IH RTID [facility] Last Admin: 02/20/18 13:29 Dose: 2.5 mg Albuterol Sulfate (Albuterol 0.083% Inhal Tila (2.5 Mg/3 Ml) Ud) 2.5 mg INH RQ4 PRN PRN Reason: Shortness of Breath Alprazolam (Xanax) 0.5 mg PO QID [facility] Last Admin: 02/20/18 16:09 Dose: 0.5 mg Amlodipine Besylate (Norvasc) 2.5 mg PO DAILY PRN PRN Reason: hypertension(SBP>130) Last Admin: 02/19/18 09:11 Dose: 2.5 mg Clonidine HCl (Catapres) 0.1 mg PO DAILY PRN PRN Reason: hypertension(SBP>180) Dextrose (Dextrose 50% Inj) 0 ml IV STAT PRN; Protocol PRN Reason: Hypoglycemia Protocol Dextrose (Glutose 15) 0 gm PO ONCE PRN; Protocol PRN Reason: Hypoglycemia Protocol Glucagon (Glucagen Diagnostic Kit) 0 mg IM STAT PRN; Protocol PRN Reason: Hypoglycemia Protocol Hydrocortisone (Anusol-Hc) 1 applic SC BID PRN PRN Reason: hemorrhoids Hyoscyamine (Levsin) 0.125 mg SL DAILY [facility] Last Admin: 02/20/18 08:49 Dose: Not Given Sodium Chloride (Sodium Chloride 0.9%) 1,000 mls @ 100 mls/hr IV .Q10H [facility] Stop: 02/20/18 21:43 Last Admin: 02/20/18 13:43 Dose: 100 mls/hr Insulin Human Lispro (Humalog) 0 units SC ACHS [facility] PRN Reason: Protocol Last Admin: 02/20/18 16:06 Dose: Not Given Ipratropium [place] (Atrovent) 0.5 mg IH RTID [facility] Last Admin: 02/20/18 13:23 Dose: 0.5 mg Loratadine (Claritin) 10 mg PO DAILY [facility] Last Admin: 02/20/18 08:47 Dose: Not Given Meclizine HCl (Antivert) 25 mg PO BID PRN PRN Reason: Dizziness Mirtazapine (Remeron) 15 mg PO HS [facility] Last Admin: 02/19/18 22:24 Dose: 15 mg Olopatadine HCl (Patanol 0.1% Opht Soln) 1 drop OU DAILY [facility] Last Admin: 02/20/18 08:44 Dose: Not Given Ondansetron HCl (Zofran Inj) 4 mg IVP Q4 PRN PRN Reason: Nausea/Vomiting Pantoprazole Sodium (Protonix Ec Tab) 20 mg PO BID [facility] Last Admin: 02/20/18 16:09 Dose: 20 mg Promethazine HCl (Phenergan Syrup) 6.25 mg PO Q4 PRN PRN Reason: Cough Terconazole (Terazol 7 (0.4%)Cream) 1 applic VAG DAILY [facility] Stop: 02/27/18 09:01 - Labs Labs: 02/19/18 05:30 02/20/18 05:30 PT 11.6 Seconds (9.8-13.1) 02/19/18 05:30 INR 1.0 02/19/18 05:30 APTT 30.8 Seconds (25.6-37.1) 02/19/18 05:30 - Constitutional Appears: No Acute Distress - Head Exam Head Exam: NORMAL INSPECTION - Eye Exam Eye Exam: PERRL - ENT Exam ENT Exam: Normal Exam - Neck Exam Neck Exam: Normal Inspection - Respiratory Exam Respiratory Exam: Clear to Ausculation Bilateral - Cardiovascular Exam Cardiovascular Exam: REGULAR RHYTHM - GI/Abdominal Exam GI & Abdominal Exam: Soft, Normal Bowel Sounds - Extremities Exam Extremities Exam: Normal Inspection - Back Exam Back Exam: NORMAL INSPECTION - Neurological Exam Neurological Exam: Alert, CN II-XII Intact, Oriented x3 Additional comments: No focal motor/sensory deficit. - Psychiatric Exam Psychiatric exam: Anxious - Skin Skin Exam: Warm Assessment and Plan (1) Diarrhea Status: Acute (2) Abdominal pain Status: Acute (3) IBS (irritable bowel syndrome) Status: Chronic (4) HTN (hypertension) Status: Chronic (5) DM (diabetes mellitus) Status: Chronic (6) Depression Status: Chronic (7) Hypokalemia Status: Acute - Assessment and Plan (Free Text) Plan: Patient refused IVF with K for "burning" , Had K po, on Flagyl IV, Vanco po , f/u GI
[2018-02-21] MEDS: Albuterol 0.083% Inhal Sol (2.5 mg/3 mL) UD IH SCH ×2 (07:49→13:50)
[2018-02-21] MEDS: Ipratropium 0.02% Inhal Soln (0.5 mg/2.5 ml) UD IH SCH ×2 (07:49→13:49)
[2018-02-21 08:27] VITALS: RESP 20
[2018-02-21] MEDS ORDERED: Terconazole 7 cream 45gm VAG SCH (09:00)
[2018-02-21] MEDS: Insulin Lispro (humaLOG) 100 Units/ml Inj SC SCH ×2 (09:05→11:10)
[2018-02-21] MEDS: Hyoscyamine 0.125 mg SL Tab SL SCH (09:09)
[2018-02-21] MEDS: Olopatadine 0.1% Opht SOLN OU SCH (09:09)
[2018-02-21] MEDS: Pantoprazole 20 mg EC Tab PO SCH (09:10)
--- NOTE | 2018-02-21 15:17 | CP.PCM.DIS ---
Provider - Provider Date of Admission: 02/20/18 13:29 Attending physician: Colby Reardon MD Diagnosis - Discharge Diagnosis (1) Abdominal pain Status: Acute Priority: High (2) Diarrhea Status: Acute Priority: High (3) IBS (irritable bowel syndrome) Status: Chronic Priority: High (4) HTN (hypertension) Status: Chronic Priority: High (5) DM (diabetes mellitus) Status: Chronic Priority: Medium (6) Depression Status: Chronic (7) Hypokalemia Status: Acute Hospital Course - Lab Results Lab Results: Micro Results 02/19/18 19:14 Stool Ova and Parasite Concentrate Exam - Final 02/19/18 11:26 Urine,Clean Catch Urine Culture - Final No Growth (<1,000 CFU/ML) Most Recent Lab Values WBC 3.5 K/uL (4.8-10.8) L 02/19/18 05:30 RBC 3.85 Mil/uL (3.80-5.20) 02/19/18 05:30 Hgb 11.1 g/dL (12.0-16.0) L D 02/19/18 05:30 Hct 31.7 % (34.0-47.0) L 02/19/18 05:30 MCV 82.3 fl (81.0-99.0) 02/19/18 05:30 MCH 28.7 pg (27.0-31.0) 02/19/18 05:30 MCHC 34.9 g/dL (33.0-37.0) 02/19/18 05:30 RDW 13.2 % (11.5-14.5) 02/19/18 05:30 Plt Count 117 K/uL (130-400) L D 02/19/18 05:30 MPV 6.9 fl (7.2-11.7) L 02/18/18 17:50 Neut % (Auto) 61.4 % (50.0-75.0) 02/18/18 17:50 Lymph % (Auto) 31.0 % (20.0-40.0) 02/18/18 17:50 [place] % (Auto) 5.8 % (0.0-10.0) 02/18/18 17:50 Eos % (Auto) 1.1 % (0.0-4.0) 02/18/18 17:50 Baso % (Auto) 0.7 % (0.0-2.0) 02/18/18 17:50 Neut # (Auto) 2.8 K/uL (1.8-7.0) 02/18/18 17:50 Lymph # (Auto) 1.4 K/uL (1.0-4.3) 02/18/18 17:50 [place] # (Auto) 0.3 K/uL (0.0-0.8) 02/18/18 17:50 Eos # (Auto) 0.0 K/uL (0.0-0.7) 02/18/18 17:50 Baso # (Auto) 0.0 K/uL (0.0-0.2) 02/18/18 17:50 PT 11.6 Seconds (9.8-13.1) 02/19/18 05:30 INR 1.0 02/19/18 05:30 APTT 30.8 Seconds (25.6-37.1) 02/19/18 05:30 Sodium 142 mmol/l (132-148) 02/20/18 05:30 Potassium 3.6 MMOL/L (3.6-5.0) 02/20/18 05:30 Chloride 113 mmol/L (98-107) H 02/20/18 05:30 Carbon Dioxide 26 mmol/L (22-30) 02/20/18 05:30 Anion Gap 7 (10-20) L 02/20/18 05:30 BUN 7 mg/dl (7-17) 02/20/18 05:30 Creatinine 0.6 mg/dl (0.7-1.2) L 02/20/18 05:30 Est GFR ( Amer) > 60 02/20/18 05:30 Est GFR (Non-Af Amer) > 60 02/20/18 05:30 POC Glucose (mg/dL) 121 mg/dL (65-110) H 02/21/18 10:51 Random Glucose 90 mg/dL (65-105) 02/20/18 05:30 Hemoglobin A1c 5.0 % (4.2-6.5) 02/19/18 05:30 Calcium 8.3 mg/dL (8.4-10.2) L 02/20/18 05:30 Total Bilirubin 0.5 mg/dl (0.2-1.3) 02/19/18 05:30 AST 21 U/L (14-36) 02/19/18 05:30 ALT 25 U/L (9-52) 02/19/18 05:30 Alkaline Phosphatase 48 U/L (38-126) 02/19/18 05:30 Total Protein 5.4 G/DL (6.3-8.2) L 02/19/18 05:30 Albumin 3.1 g/dL (3.5-5.0) L D 02/19/18 05:30 Globulin 2.4 gm/dL (2.2-3.9) 02/19/18 05:30 Albumin/Globulin Ratio 1.3 (1.0-2.1) 02/19/18 05:30 Triglycerides 127 mg/DL (0-149) D 02/19/18 05:30 Cholesterol 151 mg/dL (0-199) 02/19/18 05:30 LDL Cholesterol Direct 91 mg/dL (0-129) 02/19/18 05:30 HDL Cholesterol 31 MG/DL (30-70) 02/19/18 05:30 Lipase 45 U/L (23-300) 02/18/18 17:50 Thyroxine (T4) 9.36 ug/dl (5.5-11.0) 02/19/18 05:30 TSH 3rd Generation 1.15 mIU/ML (0.46-4.68) 02/19/18 05:30 Urine Color Light yellow (YELLOW) 02/19/18 07:00 Urine Clarity Clear (Clear) 02/19/18 07:00 Urine pH 6.0 (5.0-8.0) 02/19/18 07:00 Ur Specific [place] 1.006 (1.003-1.030) 02/19/18 07:00 Urine Protein Negative mg/dL (NEGATIVE) 02/19/18 07:00 Urine Glucose (UA) Neg mg/dL (Normal) 02/19/18 07:00 Urine Ketones Negative mg/dL (NEGATIVE) 02/19/18 07:00 Urine Blood Small (NEGATIVE) 02/19/18 07:00 Urine Nitrate Negative (NEGATIVE) 02/19/18 07:00 Urine Bilirubin Negative (NEGATIVE) 02/19/18 07:00 Urine Urobilinogen 0.2-1.0 mg/dL (0.2-1.0) 02/19/18 07:00 Ur Leukocyte Esterase Neg [place]/uL (Negative) 02/19/18 07:00 Urine RBC (Auto) 4 /hpf (0-3) H 02/19/18 07:00 Urine Microscopic WBC 2 /hpf (0-5) 02/19/18 07:00 Urine Creatinine 55 mg/dL (20-320) 02/19/18 11:26 Urine Microalbumin 0.2 mg/dL 02/19/18 11:26 Microalb/Creat Ratio 4 (<30) 02/19/18 11:26 C. difficile Ag & Toxin Positive antigen (NEGATIVE) 02/19/18 17:24 Discharge Exam - Head Exam Head Exam: NORMAL INSPECTION Discharge Plan - Follow Up Plan Condition: FAIR Disposition: HOME/ ROUTINE Instructions: Diarrhea in Adolescents and Adults, Irritable Bowel Syndrome (DC) Referrals: Jeffrey Aguiar MD, PhD [Staff Provider] - Cobly Reardon MD [Staff Provider] -
[2018-02-21 16:29] VITALS: BP 151/79; PULSE 84; TEMP 97.7; O2SAT 99
--- NOTE | 2018-02-21 21:48 | CON ---
DATE: 02/21/2018 REFERRING PHYSICIAN: Colby Reardon MD REASON FOR CONSULTATION: Abdominal pain and diarrhea. HISTORY OF PRESENT ILLNESS: This is 78-year-old female with a history of multiple medical problems including diarrhea, abdominal pain and discomfort, COPD, anxiety, anemia, arthritis, depression, diabetes, emphysema, gastritis, GERD, hypertension, hypercholesterolemia, osteoporosis, who comes in with abdominal pain and discomfort for the past 3 days or so, had this same episode about 3 months ago and had followed up with me in my office. Currently, the patient is constipated, not having diarrhea, asking for food, doing well with diet. No apparent distress. PAST MEDICAL HISTORY: As above. PAST SURGICAL HISTORY: As above. MEDICATIONS: Reviewed. REVIEW OF SYSTEMS: All other systems have been reviewed and negative apart from the HPI. PHYSICAL EXAMINATION: VITAL SIGNS: Here in the hospital is grossly unremarkable. GENERAL: A pleasant, elderly appearing female, lying in bed comfortably, no apparent distress. HEENT: Head is normocephalic, atraumatic. Eyes, pupils are equally reactive to light bilaterally. No conjunctival pallor or icterus. NECK: Supple. Normal range of motion. No lymphadenopathy appreciated. LUNGS: Coarse breath sounds bilaterally. HEART: S1 and S2. Regular rate and rhythm. No murmurs appreciated. ABDOMEN: Soft and nontender. Bowel sounds present. No rebound. No guarding. RECTAL: Deferred. EXTREMITIES: Pulses present bilaterally. SKIN: Warm, dry, and intact. NEUROLOGIC: A and O x3. LABORATORY DATA: All labs and radiology have been reviewed. WBC is 3.5, hemoglobin is stable at 11.1, hematocrit 31.7, and platelet count 117. INR 1. Potassium 3.6. C. difficile antigen is positive. CAT scan of the abdomen and pelvis shows dilated CBD from status post cholecystectomy, diverticulosis but no diverticulitis. There is no evidence of colitis anywhere. ASSESSMENT AND PLAN: This is a 78-year-old female with more likely irritable bowel syndrome. From gastrointestinal standpoint of view, she has got Clostridium difficile, we would check a Clostridium difficile toxin PCR and treat based on that. Otherwise, advance diet as tolerated. Discharge planning when able. Thank you for the consult. Jeffrey Aguiar MD/ PhD cc: Colby Reardon MD
--- NOTE | 2018-02-23 13:26 | PQF ---
PROVIDER RESPONSE TEXT: Provider was unable to determine a response for this query. REVIEWER QUERY TEXT: Asthma Specificity and Type Asthma is documented in the Medical Record. Please specify the type. Such as: -- Mild intermittent -- Mild persistent -- Moderate persistent -- Severe persistent -- Exercise induced bronchospasm -- Cough variant asthma -- Other, please specify The patient's Clinical Indicators include: Documentation of a history of Asthma and COPD. Medication: Albuterol, Atrovent Query created by: Viola Cuellar on 02/21/2018 8:06 AM Electronically signed by: Colby Reardon MD 02/23/2018 1:23 PM
== END 2018-02-21 16:20 | disposition home health service (06) | DRG 392 ==
LOC: H.ER 15:51 → H.ERHOLD 22:04 → H.MEDSURG1 02-19 01:50 → OBSVTOIN 02-20 13:29
PROVIDERS: ADMIT Internal Medicine Pulmonary Disease; ATTEND Internal Medicine Pulmonary Disease
DX: K58.0 Irritable bowel syndrome with diarrhea (principal); E87.6 Hypokalemia; K57.30 Diverticulosis of large intestine without perforation or abscess without bleeding; K21.9 Gastro-esophageal reflux disease without esophagitis; J44.9 Chronic obstructive pulmonary disease, unspecified; I10 Essential (primary) hypertension; E11.9 Type 2 diabetes mellitus without complications; E78.00 Pure hypercholesterolemia, unspecified; K29.70 Gastritis, unspecified, without bleeding; M81.0 Age-related osteoporosis without current pathological fracture; D64.9 Anemia, unspecified; M19.90 Unspecified osteoarthritis, unspecified site; F41.9 Anxiety disorder, unspecified; F32.9 Major depressive disorder, single episode, unspecified; Z90.49 Acquired absence of other specified parts of digestive tract; Z88.6 Allergy status to analgesic agent; Z88.1 Allergy status to other antibiotic agents

== ENCOUNTER 2018-04-12 18:03 | Inpatient (IN) | payer MEDICARE, MEDICAID ==
[2018-04-12 18:03] VITALS: BMI 18.3
--- NOTE | 2018-04-12 18:34 | ED PDOC ---
HPI: Abdomen Time Seen by Provider: 04/12/18 18:33 Chief Complaint (Nursing): Abdominal Pain Chief Complaint (Provider): abdominal pain, bloody stools History Per: Patient, Family (Patient's daughter at bedside is translating for patient in Turkish) Additional Complaint(s): 78-year-old female with history of IBS with constipation 5 days. Patient has been using enemas at home which have not helped. Patient has noticed small amount of blood when trying to strain. She has nausea with no vomiting. No fever or chills. Patient was admitted with abdominal pain last month and was positive for C. difficile. Patient is tolerating liquids but has decreased appetite for solids. She denies any known fever or chills. PMD: Dr. Reardon Past Medical History Reviewed: Historical Data, Nursing Documentation, Vital Signs Vital Signs: Last Vital Signs Temp 97.5 F L 04/12/18 18:11 Pulse 93 H 04/12/18 18:11 Resp 18 04/12/18 18:11 BP 135/73 04/12/18 18:11 Pulse Ox 98 04/12/18 18:11 - Medical History PMH: Anemia, Anxiety, Arthritis, Asthma, COPD, Depression, Diabetes (Type II), Diverticulitis, Emphysema, Gastritis, GERD, HTN, Hypercholesterolemia, Migraine, Osteoporosis - Surgical History Surgical History: Cholecystectomy, - Family History Family History: States: Unknown Family Hx - Living Arrangements Living Arrangements: With Family - Social History Current smoker - smoking cessation education provided: No Alcohol: None Drugs: Denies - Home Medications Home Medications: Ambulatory Orders Medication Instructions Recorded Albuterol 0.083% [Albuterol 0.083% 3 ml IH TID 02/13/16 Inhal Tila (2.5 mg/3 ml) UD] Alprazolam [Xanax] 0.5 mg PO QID 02/13/16 Hyoscyamine [Levsin] 0.125 mg PO DAILY 02/13/16 Ipratropium 0.02% [Atrovent] 0.5 mg IH TID 02/13/16 Meclizine HCl [Antivert] 25 mg PO BID PRN 02/13/16 Mirtazapine [Remeron] 15 mg PO DAILY 02/13/16 Nateglinide [Starlix] 60 mg PO BID 02/13/16 Valsartan [Diovan] 160 mg PO BID 02/13/16 cloNIDine [Catapres] 0.1 mg PO DAILY PRN 02/13/16 Albuterol/Ipratropium [Combivent 1 puff INH QID 01/05/18 Respimat] Loratadine [Allerclear] 10 mg PO DAILY 01/05/18 Olopatadine 0.1% Opht [Patanol 1 drop OU DAILY 01/05/18 0.1% Opht Soln] Omeprazole 20 mg PO BID 01/05/18 Promethazine [Phenergan Syrup] 5 ml PO Q4 PRN 01/05/18 Terconazole 1 appl TOP DAILY 01/05/18 amLODIPine [Norvasc] 2.5 mg PO DAILY 01/05/18 Hydrocortisone [Proctosol-Hc] 1 appl BID 02/18/18 Mag Hydrox/Aluminum Hyd/Simeth 1 tab PO DAILY PRN 02/18/18 [Almacone Chewable Tablet] - Allergies Allergies/Adverse Reactions: Allergies Allergy/AdvReac Type Severity Reaction Status Date / Time aspirin Allergy SHORTNESS Verified 04/12/18 18:11 OF BREATH azithromycin [From Zithromax] Allergy RASH Verified 04/12/18 18:11 budesonide [From Symbicort] Allergy RASH Verified 04/12/18 18:11 calcium Allergy RASH Verified 04/12/18 18:11 ciprofloxacin [From Cipro] Allergy ITCHING Verified 04/12/18 18:11 ciprofloxacin HCl Allergy ITCHING Verified 04/12/18 18:11 [From Cipro] codeine Allergy SHORTNESS Verified 04/12/18 18:11 OF BREATH formoterol fumarate Allergy RASH Verified 04/12/18 18:11 [From Symbicort] iodine Allergy RASH Verified 04/12/18 18:11 latex Allergy RASH Verified 04/12/18 18:11 lidocaine Allergy unknown Verified 04/12/18 18:11 Penicillins Allergy RASH Verified 04/12/18 18:11 Sulfa (Sulfonamide Allergy RASH Verified 04/12/18 18:11 Antibiotics) tetracycline Allergy RASH Verified 04/12/18 18:11 cranberry AdvReac DIARRHEA Verified 04/12/18 18:11 erthromycin Allergy RASH Uncoded 04/12/18 18:11 Review of Systems ROS Statement: Except As Marked, All Systems Reviewed And Found Negative Constitutional: Negative for: Fever, Chills, Weakness Cardiovascular: Negative for: Chest Pain Respiratory: Negative for: Cough Gastrointestinal: Positive for: Nausea, Abdominal Pain, Constipation. Negative for: Vomiting Physical Exam - Reviewed Nursing Documentation Reviewed: Yes Vital Signs Reviewed: Yes - Physical Exam Appears: Positive for: Well, Non-toxic, No Acute Distress Head Exam: Positive for: ATRAUMATIC, NORMAL INSPECTION, NORMOCEPHALIC Skin: Positive for: Normal Color. Negative for: Rash Eye Exam: Positive for: Normal appearance Cardiovascular/Chest: Positive for: Regular Rate, Rhythm Respiratory: Positive for: Normal Breath Sounds Gastrointestinal/Abdominal: Positive for: Tenderness (Moderate tenderness left lower quadrant, diffuse distention noted, hypoactive bowel sounds in all 4 quadrants, no rebound or guarding) Back: Negative for: L CVA Tenderness, R CVA Tenderness Extremity: Positive for: Normal ROM Neurologic/Psych: Positive for: Alert, Oriented - ECG O2 Sat by Pulse Oximetry: 98 Pulse Ox Interpretation: Normal Medical Decision Making Medical Decision Makin78 y/o with abdominal pain and constipation Plan: CBC CMP Lipase Urine dip CT abd and pelvis with oral barium (patient is allergic to oral and IV contrast) IVF Glycerin suppository Disposition - Clinical Impression Clinical Impression: Abdominal pain - Patient ED Disposition Is Patient to be Admitted: Transfer of Care - Disposition Disposition: Transfer of Care Disposition Time: 20:00 Condition: FAIR Forms: [facility] ([place]) Patient Signed Over To: Alanna Dawson Handoff Comments: Signed out pending diagnostic testing results and final disposition
[2018-04-12] MEDS ORDERED: Sodium Chloride 0.9% 1,000 ML IV STA (19:01)
[2018-04-12] MEDS ORDERED: Barium Sulfate Susp 2.1% w/v, 2.0% w/w 450 mL Bottle PO ONE ×3 (19:02→20:22)
[2018-04-12] MEDS ORDERED: Barium Sulfate Susp 2.1% w/v, 2.0% w/w 450 mL Bottle PO STA (19:49)
--- NOTE | 2018-04-12 20:23 | ED PDOC ---
- Laboratory Results Result Diagrams: 04/12/18 21:06 04/12/18 21:06 - ECG O2 Sat by Pulse Oximetry: 98 - Progress ED Course And Treament: Case endorsed to expert medical writer from [facility] pending CT, re-eval EXAM: CT Abdomen and Pelvis Without IV contrast CLINICAL HISTORY: Abd pain rectal bleeding constipation TECHNIQUE: Axial computed tomography images of the abdomen and pelvis without intravenous contrast. Oral contast was given. 206.47 mGy-cm CONTRAST: No IV contrast. COMPARISON: Comparison is made to study performed February 18, 2018 FINDINGS: LUNG BASES: Linear scarring and atelectasis is seen at the left lung base. LIVER: Unremarkable. GALLBLADDER AND BILE DUCTS: Status post cholecystectomy. PANCREAS: Unremarkable. SPLEEN: Unremarkable. ADRENAL GLANDS: Unremarkable. KIDNEYS, URETERS, AND BLADDER: The kidneys appear within normal limits. There is no hydronephrosis or hydroureter. No urinary calculi are seen. STOMACH AND BOWEL: Marked thickening is seen involving the sigmoid and rectum. APPENDIX: No CT evidence of appendicitis is seen. PERITONEUM: No free fluid. No free air. LYMPH NODES: No lymphadenopathy is evident. REPRODUCTIVE: Unremarkable as visualized. VASCULATURE: No evidence of abdominal aortic aneurysm. BONES: No aggressive appearing osseous lesion. No acute osseous pathology evident. IMPRESSION: Marked thickening is seen involving the sigmoid and rectum. Malignancy is not excluded. Consider follow up with conoloscopy. On re-eval, patient resting comfortably; states pain improved and she was able to have small bowel movement but concerned pain will return when she goes home as this pain has been intermittent x 1 week now. Case discussed with Dr. Reardon, recommends placement in observation and one dose antibiotics. Patient with multiple antibiotic allergies; will give one dose Vanco, Flagyl Disposition - Clinical Impression Clinical Impression: Colitis - POA Present On Arrival: None - Disposition Disposition: Hospitalized as Observation Patient Disposition Time: 00:00 Condition: FAIR Forms: [facility] ([place])
[2018-04-12 21:20] LABS: BASO % 0.5 % (0.0-2.0); EOS % 0.4 % (0.0-4.0); HEMOGLOBIN 13.2 g/dL (12.0-16.0); LYMPH % 19.9 % (20.0-40.0); MEAN CELL VOLUME 83.3 fl (81.0-99.0); MEAN CORPUSCULAR HEMOGLOBIN 27.7 pg (27.0-31.0); MEAN CORPUSCULAR HGB CONC 33.2 g/dL (33.0-37.0); MEAN PLATELET VOLUME 7.4 fl (7.2-11.7); MONO # 0.2 K/uL (0.0-0.8); MONO % 4.3 % (0.0-10.0); NEUT # 3.9 K/uL (1.8-7.0); NEUT % 74.9 % (50.0-75.0); NRBC % 0.3 % (0.0-0.0); RBC 4.78 Mil/uL (3.80-5.20); RED CELL DISTRIBUTION WIDTH 13.3 % (11.5-14.5); WHITE BLOOD COUNT 5.2 K/uL (4.8-10.8)
[2018-04-12 21:38] LABS: ALB/GLOB RATIO 1.3 (1.0-2.1); ALBUMIN 4.1 g/dL (3.5-5.0); ALT/SGPT 26 U/L (9-52); AST/SGOT 24 U/L (14-36); BLOOD UREA NITROGEN 10 mg/dl (7-17); CALCIUM 9.4 mg/dL (8.4-10.2); GFR NON-AFRICAN AMERICAN > 60; LIPASE 33 U/L (23-300)
[2018-04-12 23:26] LABS: SQUAMOUS EPITHIAL < 1 /hpf (0-5); URINE BILIRUBIN NEGATIVE (NEGATIVE); URINE BLOOD SMALL (NEGATIVE); URINE CLARITY CLEAR (Clear); URINE COLOR STRAW (YELLOW); URINE GLUCOSE (UA) NEG (Normal); URINE LEUKOCYTE ESTERASE NEG Leu/uL (Negative); URINE PROTEIN NEGATIVE (NEGATIVE); URINE UROBILINOGEN 0.2-1.0 mg/dL (0.2-1.0)
[2018-04-13] MEDS ORDERED: metroNIDAZOLE 500mg/100ml NS 100 ML IV STA (00:11)
[2018-04-13] MEDS ORDERED: metroNIDAZOLE 500mg/100ml NS 100 ML IVPB ONE ×2 (00:19→09:19)
[2018-04-13] MEDS ORDERED: Vancomycin 1 g Inj ONE (01:11)
[2018-04-13] MEDS ORDERED: DiphenhydrAMINE 50 mg/ml Inj IV ONE (04:04)
[2018-04-13] MEDS ORDERED: Sodium Chloride 0.9% 1,000 ML IV SCH (06:00)
[2018-04-13] MEDS ORDERED: Ipratropium 0.02% Inhal Soln (0.5 mg/2.5 ml) UD IH PRN (06:01)
[2018-04-13] MEDS ORDERED: Albuterol 0.083% Inhal Sol (2.5 mg/3 mL) UD IH PRN (06:01)
[2018-04-13 06:39] LABS: BASO % 0.3 % (0.0-2.0); EOS % 0.8 % (0.0-4.0); HEMOGLOBIN 11.9 g/dL (12.0-16.0); LYMPH # 1.3 K/uL (1.0-4.3); LYMPH % 23.8 % (20.0-40.0); MEAN CELL VOLUME 83.8 fl (81.0-99.0); MEAN CORPUSCULAR HEMOGLOBIN 27.8 pg (27.0-31.0); MEAN CORPUSCULAR HGB CONC 33.2 g/dL (33.0-37.0); MEAN PLATELET VOLUME 7.3 fl (7.2-11.7); MONO # 0.4 K/uL (0.0-0.8); MONO % 7.2 % (0.0-10.0); NEUT # 3.8 K/uL (1.8-7.0); NEUT % 67.9 % (50.0-75.0); RBC 4.27 Mil/uL (3.80-5.20); RED CELL DISTRIBUTION WIDTH 12.9 % (11.5-14.5); WHITE BLOOD COUNT 5.6 K/uL (4.8-10.8)
[2018-04-13 06:48] LABS: ALB/GLOB RATIO 1.2 (1.0-2.1); ALBUMIN 3.4 g/dL (3.5-5.0); ALT/SGPT 19 U/L (9-52); AST/SGOT 18 U/L (14-36); BLOOD UREA NITROGEN 7 mg/dl (7-17); CALCIUM 8.3 mg/dL (8.4-10.2); GFR NON-AFRICAN AMERICAN > 60; LIPASE 37 U/L (23-300)
--- NOTE | 2018-04-13 06:49 | CARD ---
APPROVED REPORT Date of service: 04/13/2018 EKG Measurement Heart [id number] <Conclusion> Normal sinus rhythm Moderate voltage criteria for LVH, may be normal variant Borderline ECG
[2018-04-13 07:06] LABS: T4 8.95 ug/dl (5.5-11.0)
[2018-04-13] MEDS ORDERED: Albuterol 0.083% Inhal Sol (2.5 mg/3 mL) UD ONE (08:05)
--- NOTE | 2018-04-13 08:32 | RAD ---
Date of service: 04/13/2018 HISTORY: admit COMPARISON: 01/12/2011 FINDINGS: LUNGS: The lungs are well inflated and clear. There is biapical pleural thickening. PLEURA: No pleural effusions or pneumothorax. CARDIOVASCULAR: The heart is normal in size. No aortic atherosclerotic calcification present. OSSEOUS STRUCTURES: There is an S-shaped scoliosis in the thoracolumbar spine. VISUALIZED UPPER ABDOMEN: Normal. OTHER FINDINGS: None. IMPRESSION: No active pulmonary disease.
[2018-04-13] MEDS: Pantoprazole 20 mg EC Tab PO SCH ×2 (09:31→18:43)
[2018-04-13] MEDS: metroNIDAZOLE 500mg/100ml NS 100 ML IVPB SCH ×2 (09:32→17:10)
[2018-04-13] MEDS ORDERED: Potassium Chl 20 mEq in NS 1,000 ML IV SCH (09:45)
--- NOTE | 2018-04-13 10:56 | CT ---
Date of service: 04/12/2018 PROCEDURE: CT Abdomen and Pelvis with contrast HISTORY: abdominal pain, constipation COMPARISON: 02/18/2018. TECHNIQUE: CT scan of the abdomen and pelvis was performed without administration of intravenous contrast. Oral contrast was administered. Coronal and sagittal reformatted images were obtained. Radiation dose: Total exam DLP = 206.47 mGy-cm. This CT exam was performed using one or more of the following dose reduction techniques: Automated exposure control, adjustment of the mA and/or kV according to patient size, and/or use of iterative reconstruction technique. FINDINGS: LOWER THORAX: There is atelectasis/scarring suspicion in the lingula. The visualized lung bases are clear. LIVER: Normal in size with homogeneous enhancement. No gross lesion or ductal dilatation. GALLBLADDER AND BILE DUCTS: Well distended. No calcified gallstones, wall thickening or pericholecystic fluid. PANCREAS: Normal in size with homogeneous enhancement. No gross lesion or ductal dilatation. SPLEEN: Normal in size and appearance. ADRENALS: No discrete nodule. KIDNEYS AND URETERS: Normal in size with homogeneous enhancement. No hydronephrosis. No solid mass. VASCULATURE: No aortic aneurysm. BOWEL: The small bowel loops are normal in caliber. There is segmental circumferential mural thickening in the proximal sigmoid colon. There are scattered sigmoid diverticula without CT evidence for acute diverticulitis. No bowel obstruction. APPENDIX: Normal appendix. PERITONEUM: No free fluid. No free air. LYMPH NODES: No enlarged lymph nodes. BLADDER: Well distended and normal in appearance. REPRODUCTIVE: The uterus is normal in size. BONES: No acute fracture. There is a hemangioma in the L2 vertebral body on the right. In the within normal limits for the patient's age. OTHER FINDINGS: None. IMPRESSION: No acute abdominal or pelvic abnormality. Segmental circumferential mural thickening of the proximal sigmoid colon is nonspecific and could be related to underdistention however nonspecific infection/inflammation and malignancy cannot be entirely excluded. Clinical follow-up is advised and if clinically indicated correlation with colonoscopy may be performed. A preliminary report was provided by Ushi.
[2018-04-13] MEDS: Albuterol 0.083% Inhal Sol (2.5 mg/3 mL) UD IH SCH ×2 (13:30→19:13)
--- NOTE | 2018-04-13 16:10 | CP.PCM.HP ---
History of Present Illness - History of Present Illness History of Present Illness: CC: Abdominal pain. 78 y/o F, Multiple chronic medical conditions, including IBS, recently Tx for C Difficile, Hx Diverticulitis, COPD, HTN, Anxiety. Pt walk in to [facility] [place] on 04/12/18 to be evaluated for increased abdomin al pain that began 4 days [facility], worsening on DOA. As per Pt, described abdominal pain more prominent to LLQ, aching type, severe intensity 10:10, associated to nausea, constipation and small amount of blood in the stool, Pt was using enema at home with no relief. Worsening symptoms: Decreased appetite, [place]. Aggravated factor: Food. Pt denied: Fever, chills, vomiting, urinary symptoms, CP, palpitations, SOB, cough, sick contact, [facility] Abd/Pelv CT: Nonspecific thickening of the proximal sigmoid colon, could be related to underdistention, however, nonspecific infection/inflammatory and malignancy cannot be entirely excluded CXR: No active pulmonary disease. EKG: Normal sinus rhythm. Moderate voltage criteria for LVH. Present on Admission - Present on Admission Any Indicators Present on Admission: No Review of Systems - Constitutional Constitutional: Other (decreased appetite) - EENT Eyes: Requires Corrective Lenses Ears: Other (negative) Nose/Mouth/Throat: Other (negative) - Cardiovascular Cardiovascular: Other (negative) - Respiratory Respiratory: Dyspnea on Exertion - Gastrointestinal Gastrointestinal: Abdominal Pain, Constipation, Nausea - Genitourinary Genitourinary: Other (negative) - Musculoskeletal Musculoskeletal: Arthralgias, Muscle Weakness - Integumentary Integumentary: Other (negative) - Neurological Neurological: Other (negative) - Psychiatric Psychiatric: Anxiety - Endocrine Endocrine: Other (negative) - Hematologic/Lymphatic Hematologic: Other (negative) Past Patient History - Infectious Disease Hx of Infectious Diseases: None - Past Medical History & Family History Past Medical History?: Yes Pertinent Family History: Unknown - Past Social History Smoking Status: Never Smoked Alcohol: None Drugs: Denies - CARDIAC Hx Cardiac Disorders: Yes Hx Hypercholesterolemia: Yes Hx Hypertension: Yes - PULMONARY Hx Respiratory Disorders: Yes Hx Asthma: Yes Hx Chronic Obstructive Pulmonary Disease (COPD): Yes Hx Emphysema: Yes - NEUROLOGICAL Hx Neurological Disorder: Yes Hx Migraine: Yes - HEENT Hx HEENT Problems: Yes Other/Comment: Uses eyeglasses - RENAL Hx Chronic Kidney Disease: No - ENDOCRINE/METABOLIC Hx Endocrine Disorders: Yes Hx Diabetes Mellitus Type 2: Yes - HEMATOLOGICAL/ONCOLOGICAL Hx Blood Disorders: Yes Hx Anemia: Yes - INTEGUMENTARY Hx Dermatological Problems: No - MUSCULOSKELETAL/RHEUMATOLOGICAL Hx Musculoskeletal Disorders: Yes Hx Arthritis: Yes Hx Osteoporosis: Yes - GASTROINTESTINAL Hx Gastrointestinal Disorders: Yes Hx Diverticulitis: Yes Hx Gastritis: Yes - GENITOURINARY/GYNECOLOGICAL Hx Genitourinary Disorders: No - PSYCHIATRIC Hx Psychophysiologic Disorder: Yes Hx Anxiety: Yes Hx Depression: Yes - SURGICAL HISTORY Hx Surgeries: Yes Hx Cholecystectomy: Yes - ANESTHESIA Hx Anesthesia: Yes Hx Anesthesia Reactions: No Hx Malignant Hyperthermia: No Meds Allergies/Adverse Reactions: Allergies Allergy/AdvReac Type Severity Reaction Status Date / Time aspirin Allergy SHORTNESS Verified 04/12/18 18:11 OF BREATH azithromycin [From Zithromax] Allergy RASH Verified 04/12/18 18:11 budesonide [From Symbicort] Allergy RASH Verified 04/12/18 18:11 calcium Allergy RASH Verified 04/12/18 18:11 ciprofloxacin [From Cipro] Allergy ITCHING Verified 04/12/18 18:11 ciprofloxacin HCl Allergy ITCHING Verified 04/12/18 18:11 [From Cipro] codeine Allergy SHORTNESS Verified 04/12/18 18:11 OF BREATH formoterol fumarate Allergy RASH Verified 04/12/18 18:11 [From Symbicort] iodine Allergy RASH Verified 04/12/18 18:11 latex Allergy RASH Verified 04/12/18 18:11 lidocaine Allergy unknown Verified 04/12/18 18:11 Penicillins Allergy RASH Verified 04/12/18 18:11 Sulfa (Sulfonamide Allergy RASH Verified 04/12/18 18:11 Antibiotics) tetracycline Allergy RASH Verified 04/12/18 18:11 cranberry AdvReac DIARRHEA Verified 04/12/18 18:11 erthromycin Allergy RASH Uncoded 04/12/18 18:11 Physical Exam - Constitutional Appears: No Acute Distress - Head Exam Head Exam: NORMAL INSPECTION - Eye Exam Eye Exam: PERRL - ENT Exam ENT Exam: Normal Exam - Neck Exam Neck exam: Positive for: Normal Inspection - Respiratory Exam Respiratory Exam: Decreased Breath Sounds (b/l) - Cardiovascular Exam Cardiovascular Exam: REGULAR RHYTHM - GI/Abdominal Exam GI & Abdominal Exam: Tenderness (mild LLQ). absent: Guarding, Rebound - Back Exam Back exam: NORMAL INSPECTION - Neurological Exam Neurological exam: Alert, Oriented x3 Additional comments: No motor/sensory deficit - Psychiatric Exam Psychiatric exam: Anxious - Skin Skin Exam: Warm Results - Vital Signs Recent Vital Signs: Last Vital Signs Temp 97.9 F 04/13/18 10:46 Pulse 78 04/13/18 10:46 Resp 16 04/13/18 10:46 BP 133/65 04/13/18 10:46 Pulse Ox 97 04/13/18 08:00 reviewed Trae - Labs Result Diagrams: 04/13/18 06:30 04/13/18 06:30 Labs: Laboratory Results - last 24 hr 04/12/18 04/12/18 04/12/18 20:51 21:06 21:06 WBC 5.2 RBC 4.78 Hgb 13.2 D Hct 39.8 MCV 83.3 MCH 27.7 MCHC 33.2 RDW 13.3 Plt Count 177 MPV 7.4 Neut % (Auto) 74.9 Lymph % (Auto) 19.9 L Dolores % (Auto) 4.3 Eos % (Auto) 0.4 Baso % (Auto) 0.5 Neut # (Auto) 3.9 Lymph # (Auto) 1.0 Dolores # (Auto) 0.2 Eos # (Auto) 0.0 Baso # (Auto) 0.0 Sodium 142 Potassium 3.8 Chloride 106 Carbon Dioxide 26 Anion Gap 14 BUN 10 Creatinine 0.6 L Est GFR ( Amer) > 60 Est GFR (Non-Af Amer) > 60 POC Glucose (mg/dL) 99 Random Glucose 102 Calcium 9.4 Total Bilirubin 0.6 AST 24 ALT 26 Alkaline Phosphatase 54 Total Protein 7.3 Albumin 4.1 Globulin 3.2 Albumin/Globulin Ratio 1.3 Lipase 33 Carcinoembryonic Ag Thyroxine (T4) TSH 3rd Generation Urine Color Urine Clarity Urine pH Ur Specific [place] Urine Protein Urine Glucose (UA) Urine Ketones Urine Blood Urine Nitrate Urine Bilirubin Urine Urobilinogen Ur Leukocyte Esterase Urine RBC (Auto) Urine Microscopic WBC Ur Squamous Epith Cells 04/12/18 04/13/18 04/13/18 22:10 06:15 06:30 WBC RBC Hgb Hct MCV MCH MCHC RDW Plt Count MPV Neut % (Auto) Lymph % (Auto) Dolores % (Auto) Eos % (Auto) Baso % (Auto) Neut # (Auto) Lymph # (Auto) Dolores # (Auto) Eos # (Auto) Baso # (Auto) Sodium 144 Potassium 3.3 L Chloride 109 H Carbon Dioxide 23 Anion Gap 15 BUN 7 Creatinine 0.5 L Est GFR ( Amer) > 60 Est GFR (Non-Af Amer) > 60 POC Glucose (mg/dL) 108 Random Glucose 102 Calcium 8.3 L Total Bilirubin 0.6 AST 18 ALT 19 Alkaline Phosphatase 44 Total Protein 6.2 L Albumin 3.4 L Globulin 2.8 Albumin/Globulin Ratio 1.2 Lipase 37 Carcinoembryonic Ag 0.6 Thyroxine (T4) 8.95 TSH 3rd Generation 0.87 Urine Color Straw Urine Clarity Clear Urine pH 6.0 Ur Specific Willard 1.009 Urine Protein Negative Urine Glucose (UA) Neg Urine Ketones Negative Urine Blood Small Urine Nitrate Negative Urine Bilirubin Negative Urine Urobilinogen 0.2-1.0 Ur Leukocyte Esterase Neg Urine RBC (Auto) < 1 Urine Microscopic WBC 1 Ur Squamous Epith Cells < 1 04/13/18 06:30 WBC 5.6 RBC 4.27 Hgb 11.9 L Hct 35.8 MCV 83.8 MCH 27.8 MCHC 33.2 RDW 12.9 Plt Count 154 MPV 7.3 Neut % (Auto) 67.9 Lymph % (Auto) 23.8 Dolores % (Auto) 7.2 Eos % (Auto) 0.8 Baso % (Auto) 0.3 Neut # (Auto) 3.8 Lymph # (Auto) 1.3 Dolores # (Auto) 0.4 Eos # (Auto) 0.0 Baso # (Auto) 0.0 Sodium Potassium Chloride Carbon Dioxide Anion Gap BUN Creatinine Est GFR ( Amer) Est GFR (Non-Af Amer) POC Glucose (mg/dL) Random Glucose Calcium Total Bilirubin AST ALT Alkaline Phosphatase Total Protein Albumin Globulin Albumin/Globulin Ratio Lipase Carcinoembryonic Ag Thyroxine (T4) TSH 3rd Generation Urine Color Urine Clarity Urine pH Ur Specific [place] Urine Protein Urine Glucose (UA) Urine Ketones Urine Blood Urine Nitrate Urine Bilirubin Urine Urobilinogen Ur Leukocyte Esterase Urine RBC (Auto) Urine Microscopic WBC Ur Squamous Epith Cells reviewed J.P. - EKG Data EKG comments: reviewed J.P. - Imaging and Cardiology Chest x-ray Status: Report reviewed by me (J.P.) Assessment & Plan (1) Abdominal pain Status: Acute Priority: High (2) Colitis Status: Acute Priority: High (3) IBS (irritable bowel syndrome) Status: Chronic Priority: High (4) COPD (chronic obstructive pulmonary disease) Status: Chronic Priority: Medium (5) DMII (diabetes mellitus, type 2) Status: Chronic Priority: Medium (6) HTN (hypertension) Status: Chronic Priority: High (7) Anxiety Status: Chronic Priority: Medium - Assessment and Plan (Free Text) Plan: F/U U C-S, liquid diet, Continue Flagyl, Protonix, Potassium Chl, Duoneb and rest of Tx. - Date & Time Date: 04/13/18 Time: 10:20
[2018-04-13] MEDS: Potassium Chl 20 mEq in NS 1,000 ML IV SCH ×2 (19:30→22:44)
[2018-04-14] MEDS: metroNIDAZOLE 500mg/100ml NS 100 ML IVPB SCH ×3 (00:20→17:26)
[2018-04-14 06:32] LABS: HEMOGLOBIN 10.1 g/dL (12.0-16.0); MEAN CELL VOLUME 83.6 fl (81.0-99.0); MEAN CORPUSCULAR HEMOGLOBIN 27.6 pg (27.0-31.0); RBC 3.66 Mil/uL (3.80-5.20); WHITE BLOOD COUNT 2.9 K/uL (4.8-10.8)
[2018-04-14 06:55] LABS: ALB/GLOB RATIO 1.1 (1.0-2.1); ALBUMIN 2.8 g/dL (3.5-5.0); ALT/SGPT 22 U/L (9-52); AST/SGOT 15 U/L (14-36); BLOOD UREA NITROGEN 4 mg/dl (7-17); CALCIUM 7.9 mg/dL (8.4-10.2); GFR NON-AFRICAN AMERICAN > 60
[2018-04-14] MEDS: Albuterol-Ipratrop 3 mg / 0.5 (3 ml) UD INH SCH ×3 (07:55→19:47)
[2018-04-14] MEDS: Pantoprazole 20 mg EC Tab PO SCH ×2 (09:56→17:26)
--- NOTE | 2018-04-14 16:52 | CP.PCM.PN ---
Subjective - Date & Time of Evaluation Date of Evaluation: 04/14/18 - Subjective Subjective: F/U Colitis. Intermittent abdominal pain, at times epigastric or LLQ. Objective - Vital Signs/Intake and Output Vital Signs (last 24 hours): Temp Pulse Resp BP Pulse Ox 97.7 F 83 18 132/66 97 04/14/18 16:48 04/14/18 16:48 04/14/18 16:48 04/14/18 16:48 04/14/18 16:48 - Medications Medications: Current Medications Acetaminophen (Tylenol 325mg Tab) 650 mg PO Q4 PRN PRN Reason: Headache Albuterol Sulfate (Albuterol 0.083% Inhal Tila (2.5 Mg/3 Ml) Ud) 2.5 mg IH RTID [facility] Last Admin: 04/13/18 19:13 Dose: 2.5 mg Albuterol/Ipratropium (Duoneb 3 Mg/0.5 Mg (3 Ml) Ud) 3 ml INH RTID [facility] Last Admin: 04/14/18 14:19 Dose: 3 ml Alprazolam (Xanax) 0.5 mg PO BID [facility] Last Admin: 04/14/18 10:20 Dose: 0.5 mg Amlodipine Besylate (Norvasc) 2.5 mg PO DAILY [facility] Hyoscyamine (Levsin) 0.125 mg PO DAILY [facility] Metronidazole (Flagyl 500mg/100ml Ns) 100 mls @ 100 mls/hr IVPB Q8 [facility]; Protocol Last Admin: 04/14/18 09:55 Dose: 100 mls/hr Potassium Chloride/Sodium Chloride (Potassium Chl 20 Meq In Ns) 1,000 mls @ 80 mls/hr IV .[id number] [facility] Last Admin: 04/13/18 22:44 Dose: 80 mls/hr Ipratropium [place] (Atrovent) 0.5 mg IH TID PRN PRN Reason: Shortness of Breath Meclizine HCl (Antivert) 25 mg PO BID PRN PRN Reason: Dizziness Mirtazapine (Remeron) 15 mg PO DAILY [facility] Nateglinide (Starlix) 60 mg PO BID [facility] Olopatadine HCl (Patanol 0.1% Opht Soln) 1 drop OU DAILY [facility] Ondansetron HCl (Zofran Inj) 4 mg IVP Q6 PRN PRN Reason: Nausea/Vomiting Last Admin: 04/14/18 10:20 Dose: 4 mg Pantoprazole Sodium (Protonix Ec Tab) 20 mg PO BID [facility] Last Admin: 04/14/18 09:56 Dose: 20 mg - Labs Labs: 04/14/18 05:50 04/14/18 05:50 - Constitutional Appears: No Acute Distress - Head Exam Head Exam: NORMAL INSPECTION - Eye Exam Eye Exam: PERRL - ENT Exam ENT Exam: Normal Exam - Neck Exam Neck Exam: Normal Inspection - Respiratory Exam Respiratory Exam: Decreased Breath Sounds (b/l) - Cardiovascular Exam Cardiovascular Exam: REGULAR RHYTHM - GI/Abdominal Exam GI & Abdominal Exam: Soft, Normal Bowel Sounds Additional comments: Minimal discomfort epigastric/LLQ - Extremities Exam Extremities Exam: Normal Inspection - Neurological Exam Neurological Exam: Alert, Awake, Oriented x3. absent: Motor Sensory Deficit - Psychiatric Exam Psychiatric exam: Anxious - Skin Skin Exam: Warm Assessment and Plan (1) Abdominal pain Status: Acute (2) Colitis Status: Acute (3) IBS (irritable bowel syndrome) Status: Chronic (4) COPD (chronic obstructive pulmonary disease) Status: Chronic (5) DMII (diabetes mellitus, type 2) Status: Chronic (6) HTN (hypertension) Status: Chronic (7) Anxiety Status: Chronic - Assessment and Plan (Free Text) Plan: Increased plan diet to gluten free, no fish or red meat and observe response. Continue Duoneb, Flagyl, Pottasium and rest of Tx.
[2018-04-14] MEDS: Potassium Chl 20 mEq in NS 1,000 ML IV SCH (20:15)
[2018-04-15] MEDS: metroNIDAZOLE 500mg/100ml NS 100 ML IVPB SCH ×2 (01:03→09:23)
[2018-04-15] MEDS: Potassium Chl 20 mEq in NS 1,000 ML IV SCH (06:05)
[2018-04-15] MEDS: Albuterol-Ipratrop 3 mg / 0.5 (3 ml) UD INH SCH ×2 (07:57→14:14)
[2018-04-15] MEDS ORDERED: Hyoscyamine 0.125 mg SL Tab PO SCH (09:00)
[2018-04-15 09:13] VITALS: O2SAT 99
[2018-04-15] MEDS: Olopatadine 0.1% Opht SOLN OU SCH ×2 (09:25→10:08)
[2018-04-15] MEDS: Pantoprazole 20 mg EC Tab PO SCH ×2 (09:25→17:10)
[2018-04-15 16:03] VITALS: BP 164/65; PULSE 93; RESP 18; TEMP 97.5
--- NOTE | 2018-04-15 16:32 | CP.PCM.DIS ---
Provider - Provider Date of Admission: 04/14/18 12:15 Attending physician: Colby Reardon MD Consults: Gastroenterology-Dr. Thomson Time Spent in preparation of Discharge (in minutes): 35 Diagnosis - Discharge Diagnosis (1) Abdominal pain Status: Acute Priority: High Comment: 2nd to unknown type of Colitis (2) Colitis Status: Acute Priority: High (3) IBS (irritable bowel syndrome) Status: Chronic Priority: High (4) COPD (chronic obstructive pulmonary disease) Status: Chronic Priority: Medium Comment: Stable (5) DMII (diabetes mellitus, type 2) Status: Chronic Priority: Medium (6) HTN (hypertension) Status: Chronic Priority: High (7) Anxiety Status: Chronic Priority: Medium (8) Hypokalemia Status: Acute Comment: Resolved Hospital Course - Lab Results Lab Results: Micro Results 04/12/18 22:10 Urine,Clean Catch Urine Culture - Final No Growth (<1,000 CFU/ML) Most Recent Lab Values WBC 2.9 K/uL (4.8-10.8) L 04/14/18 05:50 RBC 3.66 Mil/uL (3.80-5.20) L 04/14/18 05:50 Hgb 10.1 g/dL (12.0-16.0) L 04/14/18 05:50 Hct 30.6 % (34.0-47.0) L 04/14/18 05:50 MCV 83.6 fl (81.0-99.0) 04/14/18 05:50 MCH 27.6 pg (27.0-31.0) 04/14/18 05:50 MCHC 33.0 g/dL (33.0-37.0) 04/14/18 05:50 RDW 13.0 % (11.5-14.5) 04/14/18 05:50 Plt Count 122 K/uL (130-400) L D 04/14/18 05:50 MPV 7.3 fl (7.2-11.7) 04/13/18 06:30 Neut % (Auto) 67.9 % (50.0-75.0) 04/13/18 06:30 Lymph % (Auto) 23.8 % (20.0-40.0) 04/13/18 06:30 Cook % (Auto) 7.2 % (0.0-10.0) 04/13/18 06:30 Eos % (Auto) 0.8 % (0.0-4.0) 04/13/18 06:30 Baso % (Auto) 0.3 % (0.0-2.0) 04/13/18 06:30 Neut # (Auto) 3.8 K/uL (1.8-7.0) 04/13/18 06:30 Lymph # (Auto) 1.3 K/uL (1.0-4.3) 04/13/18 06:30 Cook # (Auto) 0.4 K/uL (0.0-0.8) 04/13/18 06:30 Eos # (Auto) 0.0 K/uL (0.0-0.7) 04/13/18 06:30 Baso # (Auto) 0.0 K/uL (0.0-0.2) 04/13/18 06:30 Sodium 142 mmol/l (132-148) 04/14/18 05:50 Potassium 3.8 MMOL/L (3.6-5.0) 04/14/18 05:50 Chloride 110 mmol/L (98-107) H 04/14/18 05:50 Carbon Dioxide 22 mmol/L (22-30) 04/14/18 05:50 Anion Gap 14 (10-20) 04/14/18 05:50 BUN 4 mg/dl (7-17) L 04/14/18 05:50 Creatinine 0.6 mg/dl (0.7-1.2) L 04/14/18 05:50 Est GFR ( Amer) > 60 04/14/18 05:50 Est GFR (Non-Af Amer) > 60 04/14/18 05:50 POC Glucose (mg/dL) 117 mg/dL (65-110) H 04/15/18 10:59 Random Glucose 100 mg/dL (65-105) 04/14/18 05:50 Calcium 7.9 mg/dL (8.4-10.2) L 04/14/18 05:50 Total Bilirubin 0.1 mg/dl (0.2-1.3) L 04/14/18 05:50 AST 15 U/L (14-36) 04/14/18 05:50 ALT 22 U/L (9-52) 04/14/18 05:50 Alkaline Phosphatase 35 U/L (38-126) L D 04/14/18 05:50 Total Protein 5.3 G/DL (6.3-8.2) L 04/14/18 05:50 Albumin 2.8 g/dL (3.5-5.0) L 04/14/18 05:50 Globulin 2.6 gm/dL (2.2-3.9) 04/14/18 05:50 Albumin/Globulin Ratio 1.1 (1.0-2.1) 04/14/18 05:50 Lipase 37 U/L (23-300) 04/13/18 06:30 Carcinoembryonic Ag 0.6 ng/mL (0-3.0) 04/13/18 06:30 Thyroxine (T4) 8.95 ug/dl (5.5-11.0) 04/13/18 06:30 TSH 3rd Generation 0.87 mIU/ML (0.46-4.68) 04/13/18 06:30 Urine Color Straw (YELLOW) 04/12/18 22:10 Urine Clarity Clear (Clear) 04/12/18 22:10 Urine pH 6.0 (5.0-8.0) 04/12/18 22:10 Ur Specific [place] 1.009 (1.003-1.030) 04/12/18 22:10 Urine Protein Negative mg/dL (NEGATIVE) 04/12/18 22:10 Urine Glucose (UA) Neg mg/dL (Normal) 04/12/18 22:10 Urine Ketones Negative mg/dL (NEGATIVE) 04/12/18 22:10 Urine Blood Small (NEGATIVE) 04/12/18 22:10 Urine Nitrate Negative (NEGATIVE) 04/12/18 22:10 Urine Bilirubin Negative (NEGATIVE) 04/12/18 22:10 Urine Urobilinogen 0.2-1.0 mg/dL (0.2-1.0) 04/12/18 22:10 Ur Leukocyte Esterase Neg Nathen/uL (Negative) 04/12/18 22:10 Urine RBC (Auto) < 1 /hpf (0-3) 04/12/18 22:10 Urine Microscopic WBC 1 /hpf (0-5) 04/12/18 22:10 Ur Squamous Epith Cells < 1 /hpf (0-5) 04/12/18 22:10 - Date & Time of H&P Date of H&P: 04/13/18 Time of H&P: 10:20 Discharge Exam - Head Exam Head Exam: NORMAL INSPECTION - Eye Exam Eye Exam: PERRL - ENT Exam ENT Exam: Normal Exam - Neck Exam Neck exam: Normal Inspection - Respiratory Exam Respiratory Exam: Decreased Breath Sounds (b/l) - Cardiovascular Exam Cardiovascular Exam: REGULAR RHYTHM - GI/Abdominal Exam GI & Abdominal Exam: Normal Bowel Sounds, Soft Additional comments: minimal discomfort epigastric/LLQ - Extremities Exam Extremities exam: normal inspection - Neurological Exam Neurological exam: Alert, Oriented x3 Additional comments: awake, no motor sensory deficit. - Psychiatric Exam Psychiatric exam: Anxious - Skin Skin Exam: Warm Discharge Plan - Follow Up Plan Condition: FAIR Disposition: DISCHARGED TO HOME CARE Patient education suggested?: Yes Instructions: Irritable Bowel Syndrome (DC), Metronidazole (Systemic) Additional Instructions: hacer marky con olivares primario dentro 1 semana Referrals: Jeffrey Aguiar MD, PhD [Staff Provider] - Colby Reardon MD [Family Provider] -
--- NOTE | 2018-04-17 08:43 | CON ---
DATE: 04/14/2018 REFERRING PHYSICIAN: Colby Reardon MD REASON FOR CONSULTATION: Abdominal pain and discomfort. HISTORY OF PRESENT ILLNESS: This is a 78-year-old female with multiple admissions for identical complaints. She has a history of constipation and IBS working. She is now having constipation which is not improving. The pain and discomfort is in the left lower quadrant, epigastric discomfort as well. Otherwise, lying in bed comfortably in no apparent distress. PAST MEDICAL HISTORY: As above including anemia, anxiety, arthritis, asthma, COPD, depression, diabetes, emphysema, , gastritis, GERD, hypertension, migraines, osteoporosis . PAST SURGICAL HISTORY: As Above. MEDICATIONS: Reviewed. REVIEW OF SYSTEMS: All other systems have been reviewed and negative apart from the HPI. PHYSICAL EXAMINATION: GENERAL: A pleasant, elderly-appearing female, lying in bed comfortably, in no apparent distress. VITAL SIGNS: Here in the hospital are grossly unremarkable. HEENT: Head is normocephalic and atraumatic. Eyes, pupils are equally reactive to light bilaterally. No conjunctival pallor or icterus. NECK: Supple. Normal range of motion. No lymphadenopathy appreciated. LUNGS: Coarse breath sounds bilaterally. HEART: S1, S2. Regular rate and rhythm. No murmurs appreciated. ABDOMEN: Soft and nontender. Bowel sounds are present. No rebound. No guarding. RECTAL: Deferred. EXTREMITIES: Pulses present bilaterally. SKIN: Warm, dry and intact. NEUROLOGIC: A and O x3. LABORATORY DATA: All labs and radiology have been reviewed. WBC is 2.9, hemoglobin of 10.1, hematocrit of 30.7, platelet count 122. CAT scan showed some questionable thickening in the left lower quadrant. ASSESSMENT: This is a 78-year-old female with irritable bowel syndrome. Will need a colonoscopy at some point; electively it can be done. Advance diet as tolerated unclear etiology for the pancytopenia. Thank you for the consult. Jeffrey Aguiar MD/ PhD cc: Colby Reardon MD
== END 2018-04-15 18:02 | disposition home health service (06) | DRG 392 ==
LOC: H.ER 18:03 → H.ERHOLD 04-13 00:12 → H.MEDSURG1 04-13 10:53 → OBSVTOIN 04-14 12:15
PROVIDERS: ADMIT Internal Medicine Pulmonary Disease; ATTEND Internal Medicine Pulmonary Disease
DX: K58.1 Irritable bowel syndrome with constipation (principal); D61.818 Other pancytopenia; K21.9 Gastro-esophageal reflux disease without esophagitis; E87.6 Hypokalemia; J43.9 Emphysema, unspecified; K29.70 Gastritis, unspecified, without bleeding; E11.9 Type 2 diabetes mellitus without complications; I10 Essential (primary) hypertension; E78.00 Pure hypercholesterolemia, unspecified; D64.9 Anemia, unspecified; G43.909 Migraine, unspecified, not intractable, without status migrainosus; M81.0 Age-related osteoporosis without current pathological fracture; F41.8 Other specified anxiety disorders; Z90.49 Acquired absence of other specified parts of digestive tract; Z88.1 Allergy status to other antibiotic agents; Z88.6 Allergy status to analgesic agent

== ENCOUNTER 2018-08-21 17:57 | Inpatient (IN) | payer MEDICARE, MEDICAID ==
[2018-08-21 18:15] VITALS: BMI 19.1
--- NOTE | 2018-08-21 19:08 | ED PDOC ---
HPI: Abdomen Time Seen by Provider: 08/21/18 18:51 Chief Complaint (Nursing): GI Problem Chief Complaint (Provider): GI Problem History Per: Patient, Family History/Exam Limitations: no limitations Onset/Duration Of Symptoms: Days Current Symptoms Are (Timing): Still Present Additional Complaint(s): 78 y/o female with a PMHx of DM, HTN, COPD, IBS and Anxiety presents to the ED with daughter for evaluation of LLQ abdominal pain, onset four days ago. Patient reports pain worsens and is more prominent whenever she eats and drinks. Daughter notes patient has been constipated for the past 4 days with a very minimal bowel movement. Patient states she has tried 3 suppositories, magnesium and prune juice with no relief of constipation. Patient informed PMD and was advised to come here for further evaluation. Of note, daughter states the patient was evaluated here for diarrhea two weeks ago. Patient states pain is associated with nausea and decreased appetite. Patient additionally reports of feeling like her blood sugar has been dropping due to lack of eating. Otherwise, patient denies any vomiting. PMD: Colby Reardon Past Medical History Reviewed: Historical Data, Nursing Documentation, Vital Signs Vital Signs: Last Vital Signs Temp 97.8 F 08/21/18 18:14 Pulse 86 08/21/18 18:14 Resp 16 08/21/18 18:14 BP 143/66 08/21/18 18:14 Pulse Ox 100 08/21/18 18:14 - Medical History PMH: Anemia, Anxiety, Arthritis, Asthma, COPD, Depression, Diabetes (Type II), Diverticulitis, Emphysema, Gastritis, GERD, HTN, Hypercholesterolemia, Migraine, Osteoporosis Denies: HIV, Chronic Kidney Disease Other PMH: IBS - Surgical History Surgical History: Cholecystectomy, (x2) - Family History Family History: States: Unknown Family Hx - Home Medications Home Medications: Ambulatory Orders Medication Instructions Recorded Albuterol 0.083% [Albuterol 0.083% 3 ml IH TID 02/13/16 Inhal Tila (2.5 mg/3 ml) UD] Hyoscyamine [Levsin] 0.125 mg PO DAILY 02/13/16 Ipratropium 0.02% [Atrovent] 0.5 mg IH TID 02/13/16 Meclizine HCl [Antivert] 25 mg PO BID PRN 02/13/16 Mirtazapine [Remeron] 15 mg PO HS 02/13/16 Nateglinide [Starlix] 60 mg PO BID 02/13/16 Valsartan [Diovan] 160 mg PO BID 02/13/16 cloNIDine [Catapres] 0.1 mg PO DAILY PRN 02/13/16 Loratadine [Allerclear] 10 mg PO DAILY 01/05/18 Olopatadine 0.1% Opht [Patanol 1 drop OU DAILY 01/05/18 0.1% Opht Soln] Omeprazole 20 mg PO BID 01/05/18 Promethazine [Phenergan Syrup] 5 ml PO Q4 PRN 01/05/18 Terconazole 1 appl TOP DAILY 01/05/18 amLODIPine [Norvasc] 2.5 mg PO DAILY PRN 01/05/18 Hydrocortisone [Proctosol-Hc] 1 appl BID 02/18/18 Mag Hydrox/Aluminum Hyd/Simeth 1 tab PO DAILY PRN 02/18/18 [Almacone Chewable Tablet] Albuterol/Ipratropium [Combivent 1 puff INH QID 08/22/18 Respimat] Alprazolam [Xanax] 0.5 mg PO QID 08/22/18 Loperamide [Imodium] 2 mg PO PRN PRN 08/22/18 - Allergies Allergies/Adverse Reactions: Allergies Allergy/AdvReac Type Severity Reaction Status Date / Time aspirin Allergy SHORTNESS Verified 04/12/18 18:11 OF BREATH azithromycin [From Zithromax] Allergy RASH Verified 04/12/18 18:11 budesonide [From Symbicort] Allergy RASH Verified 04/12/18 18:11 calcium Allergy RASH Verified 04/12/18 18:11 ciprofloxacin [From Cipro] Allergy ITCHING Verified 04/12/18 18:11 ciprofloxacin HCl Allergy ITCHING Verified 04/12/18 18:11 [From Cipro] codeine Allergy SHORTNESS Verified 04/12/18 18:11 OF BREATH formoterol fumarate Allergy RASH Verified 04/12/18 18:11 [From Symbicort] iodine Allergy RASH Verified 04/12/18 18:11 latex Allergy RASH Verified 04/12/18 18:11 lidocaine Allergy unknown Verified 04/12/18 18:11 Penicillins Allergy RASH Verified 04/12/18 18:11 Sulfa (Sulfonamide Allergy RASH Verified 04/12/18 18:11 Antibiotics) tetracycline Allergy RASH Verified 04/12/18 18:11 cranberry AdvReac DIARRHEA Verified 04/12/18 18:11 dicyclomine [From Bentyl] AdvReac VOMITING Verified 08/22/18 06:40 erthromycin Allergy RASH Uncoded 04/12/18 18:11 iv contrast Allergy RASH Uncoded 08/21/18 20:17 Review of Systems ROS Statement: Except As Marked, All Systems Reviewed And Found Negative Gastrointestinal: Positive for: Nausea, Abdominal Pain, Constipation, Other (decreased appetite). Negative for: Vomiting Physical Exam - Reviewed Nursing Documentation Reviewed: Yes Vital Signs Reviewed: Yes - Physical Exam Appears: Positive for: Uncomfortable Head Exam: Positive for: ATRAUMATIC, NORMOCEPHALIC Skin: Positive for: Normal Color, Warm, Dry Eye Exam: Positive for: Normal appearance, EOMI, PERRL ENT: Positive for: Normal ENT Inspection Neck: Positive for: Normal, Painless ROM, Supple Cardiovascular/Chest: Positive for: Regular Rate, Rhythm. Negative for: Murmur Respiratory: Positive for: Normal Breath Sounds. Negative for: Respiratory Distress Gastrointestinal/Abdominal: Positive for: Soft, Tenderness (LLQ tenderness) Back: Positive for: Normal Inspection. Negative for: L CVA Tenderness, R CVA Tenderness, Vertebral Tenderness Extremity: Positive for: Normal ROM. Negative for: Deformity Neurological/Psych: Positive for: Awake, Alert, Oriented - Laboratory Results Result Diagrams: 08/21/18 19:16 08/21/18 19:16 - ECG O2 Sat by Pulse Oximetry: 100 (RA) Pulse Ox Interpretation: Normal Medical Decision Making Medical Decision Making: Time: 1899 Impression: Abdominal pain and constipation Differentials include but not limited to diverticulitis, small bowel obstruction and Irritable Bowel Syndrome Plan: -- CT Abd/Pelvis IV Contrast ONLY -- CMP -- ED Urine Dipstick -- CBC with differentials -- Urinalysis -- Patient endorsed to Dr. Obregon, pending workup, reassessment and final ER disposition. Scribe Attestation: Documented by Manas Arce, acting as a scribe Mary Bentley MD. Provider Scribe Attestation: All medical record entries made by the Scribe were at my direction and personally dictated by me. I have reviewed the chart and agree that the record accurately reflects my personal performance of the history, physical exam, medical decision making, and the department course for this patient. I have also personally directed, reviewed, and agree with the discharge instructions and disposition. Disposition - Clinical Impression Clinical Impression: Proctocolitis - Patient ED Disposition Is Patient to be Admitted: Transfer of Care Counseled Patient/Family Regarding: Studies Performed, Diagnosis - Disposition Disposition: Transfer of Care Disposition Time: 19:00 Condition: STABLE Patient Signed Over To: Tom Obregon Handoff Comments: pending workup, reassessment and final ER disposition.
--- NOTE | 2018-08-21 19:22 | ED PDOC ---
- Laboratory Results Result Diagrams: 08/21/18 19:16 08/21/18 19:16 - ECG O2 Sat by Pulse Oximetry: 100 (RA) Pulse Ox Interpretation: Normal Medical Decision Making Medical Decision Making: Time: 1899 -- Patient endorsed to me by Dr. Michele, pending workup, reassessment and final ER disposition. 0014 EXAM: CT Abdomen and Pelvis without IV contrast CLINICAL HISTORY: Left lower quadrant pain TECHNIQUE: Axial computed tomography images of the abdomen and pelvis without intravenous contrast. 234.96 mGy-cm CONTRAST: Without COMPARISON: None provided. FINDINGS: LUNG BASES: Mild scarring or atelectasis at the lung bases. LIVER: Unremarkable. GALLBLADDER AND BILE DUCTS: There has been a cholecystectomy. PANCREAS: Pancreas is slightly atrophic. SPLEEN: Unremarkable. ADRENAL GLANDS: Unremarkable. KIDNEYS, URETERS, AND BLADDER: Bladder is decompressed. STOMACH AND BOWEL: There is recurrent thickening involving the rectum and sigmoid colon. This had been present 2 a fairly similar degree on the April 12, 2018 study. However, resolved in the interim before the August 05, 2018 study and appears recurrent on today's study. This pattern of findings over time is most suggestive of a recurrent proctocolitis. This could have infectious, inflammatory perhaps ischemic etiology. Please correlate clinically. No bowel obstruction. APPENDIX: The appendix appears thickened on the current study measuring up to 8-9 mm. It does not feel with air or contrast. The finding may possibly represent early or mild acute appendicitis, versus prominent non inflamed appendix. Minimal if any periappendiceal stranding. No evidence for perforation or abscess. Please correlate clinically. PERITONEUM: No pneumoperitoneum or ascites. LYMPH NODES: There are several normal sized lymph nodes in the right lower quadrant. This is nonspecific but can be seen in mesenteric adenitis, please correlate clinically. It could also relate to the adjacent appendiceal process. Please see above. REPRODUCTIVE: Uterus is atrophic. VASCULATURE: Abdominal aorta is mildly atherosclerotic without aneurysm. BONES: Mild multilevel degenerative spine changes. MISCELLANEOUS: There is a moderate levoscoliosis centered at L2-L3. IMPRESSION: 1. There is recurrent thickening involving the rectum and sigmoid colon. This had been present to a fairly similar degree on the April 12, 2018 study. However, resolved in the interim before the August 05, 2018 study and appears recurrent on today's study. This pattern of findings over time is most suggestive of a recurrent proctocolitis. This could have infectious, inflammatory perhaps ischemic etiology. Please correlate clinically. 2. There are several normal sized lymph nodes in the right lower quadrant. This is nonspecific but can be seen in mesenteric adenitis, please correlate clinically. This could also relate to the adjacent process involving the appendix. See below. 3. The appendix appears thickened on the current study measuring up to 8-9 mm. It does not feel with air or contrast. The finding may possibly represent early or mild acute appendicitis, versus prominent non inflamed appendix. Minimal if any periappendiceal stranding. No evidence for perforation or abscess. Please correlate clinically. 4. Additional findings as described above. 0043 Patient reports of worsening diarrhea and IV Flagyl ordered. Patient's persistent symptoms and imaging presents with acute proctocolitis and admission order placed to Dr. Reardon _ ____ Scribe Attestation: Documented by Manas Arce, acting as a scribe Adam Obregon MD. Provider Scribe Attestation: All medical record entries made by the Scribe were at my direction and personally dictated by me. I have reviewed the chart and agree that the record accurately reflects my personal performance of the history, physical exam, medical decision making, and the department course for this patient. I have also personally directed, reviewed, and agree with the discharge instructions and disposition. Disposition Discussed With : Colby Reardon - Clinical Impression Clinical Impression: Proctocolitis - POA Present On Arrival: None - Disposition Disposition: Routine/Home Disposition Time: 00:00 Condition: FAIR
[2018-08-21 19:41] LABS: BASO % 0.3 % (0.0-2.0); EOS % 0.7 % (0.0-4.0); HEMOGLOBIN 13.5 g/dL (12.0-16.0); LYMPH # 1.3 K/uL (1.0-4.3); LYMPH % 27.3 % (20.0-40.0); MEAN CELL VOLUME 82.7 fl (81.0-99.0); MEAN CORPUSCULAR HEMOGLOBIN 28.2 pg (27.0-31.0); MEAN CORPUSCULAR HGB CONC 34.1 g/dL (33.0-37.0); MEAN PLATELET VOLUME 7.2 fl (7.2-11.7); MONO # 0.2 K/uL (0.0-0.8); MONO % 5.1 % (0.0-10.0); NEUT # 3.2 K/uL (1.8-7.0); NEUT % 66.6 % (50.0-75.0); NRBC % 0.1 % (0.0-0.0); RBC 4.8 Mil/uL (3.80-5.20); RED CELL DISTRIBUTION WIDTH 13.4 % (11.5-14.5); WHITE BLOOD COUNT 4.8 K/uL (4.8-10.8)
[2018-08-21 19:53] LABS: ALB/GLOB RATIO 1.4 (1.0-2.1); ALBUMIN 4.6 g/dL (3.5-5.0); ALT/SGPT 25 U/L (9-52); AST/SGOT 28 U/L (14-36); BLOOD UREA NITROGEN 9 mg/dl (7-17); CALCIUM 9.6 mg/dL (8.4-10.2); GFR NON-AFRICAN AMERICAN > 60
[2018-08-21] MEDS ORDERED: Iohexol 240 (50 ml) PO ONE (20:21)
[2018-08-21] MEDS ORDERED: Barium Sulfate Susp 2.1% w/v, 2.0% w/w 450 mL Bottle PO ONE ×3 (20:33→20:35)
[2018-08-21] MEDS ORDERED: Albuterol-Ipratrop 3 mg / 0.5 (3 ml) UD INH STA (23:31)
[2018-08-22] MEDS ORDERED: metroNIDAZOLE 500mg/100ml NS 100 ML IVPB STA (00:44)
[2018-08-22] MEDS ORDERED: Atrop/Hyos/Scop/PhenoB Elixir PO STA (00:45)
[2018-08-22] MEDS ORDERED: metroNIDAZOLE 500mg/100ml NS 100 ML IVPB ONE ×2 (01:02→09:46)
[2018-08-22] MEDS: Dextrose 5%/0.45% NS 1,000 ML IV SCH ×2 (06:24→17:55)
[2018-08-22] MEDS: Albuterol-Ipratrop 3 mg / 0.5 (3 ml) UD INH PRN (07:59)
[2018-08-22 09:26] LABS: SQUAMOUS EPITHIAL < 1 /hpf (0-5); URINE BILIRUBIN NEGATIVE (NEGATIVE); URINE BLOOD MODERATE (NEGATIVE); URINE CLARITY CLEAR (Clear); URINE COLOR STRAW (YELLOW); URINE GLUCOSE (UA) NEG (NEGATIVE); URINE LEUKOCYTE ESTERASE TRACE Leu/uL (Negative); URINE PROTEIN NEGATIVE (NEGATIVE); URINE UROBILINOGEN 0.2-1.0 mg/dL (0.2-1.0)
[2018-08-22] MEDS: metroNIDAZOLE 500mg/100ml NS 100 ML IVPB SCH ×3 (09:53→23:01)
[2018-08-22] MEDS ORDERED: Patient's Own Med (Albuterol/Ipratropium [Combivent Respimat] 1 PUFF) INH SCH (13:00)
--- NOTE | 2018-08-22 13:42 | CP.PCM.HP ---
History of Present Illness - History of Present Illness History of Present Illness: CC: Abdominal pain. 78 y/o F, multiple chronic medical conditions, including IBS, Colitis, Diverticulitis, COPD, Asthma, Emphysema, DMII, Hypercholesterolemia. 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 Worsening symptoms: Nasal congestion, decreased appetite, weakness, also c/o of low BS at home. Aggravated factor: Food. Pt denied: Fever, chills, vomiting, diarrhea, urinary symptoms, CP, palpitations, syncope, SOB, cough, sick contact, recent travel out of [facility]. CT Abd/Pelvis: Diverticulitis, Colitis, r/o Neoplasm Present on Admission - Present on Admission Any Indicators Present on Admission: No Review of Systems - Constitutional Constitutional: Weakness - EENT Eyes: Requires Corrective Lenses Ears: Other (negative) Nose/Mouth/Throat: Nasal Congestion - Cardiovascular Cardiovascular: Other (negative) - Respiratory Respiratory: Other (negative) - Gastrointestinal Gastrointestinal: Abdominal Pain, Constipation, Nausea - Genitourinary Genitourinary: Other (negative) - Musculoskeletal Musculoskeletal: Arthralgias - Integumentary Integumentary: Other (negative) - Neurological Neurological: Weakness - Psychiatric Psychiatric: Anxiety - Endocrine Endocrine: Other (negative) - Hematologic/Lymphatic Hematologic: Other (negtaive) Past Patient History - Infectious Disease Hx of Infectious Diseases: None - Past Medical History & Family History Past Medical History?: Yes Pertinent Family History: Unknown - Past Social History Smoking Status: Never Smoked Alcohol: None Drugs: Denies Home Situation {Lives}: Alone - CARDIAC Hx Cardiac Disorders: Yes Hx Hypercholesterolemia: Yes Hx Hypertension: Yes - PULMONARY Hx Respiratory Disorders: Yes Hx Asthma: Yes Hx Chronic Obstructive Pulmonary Disease (COPD): Yes Hx Emphysema: Yes - NEUROLOGICAL Hx Neurological Disorder: Yes Hx Migraine: Yes - HEENT Hx HEENT Problems: Yes Other/Comment: Uses eyeglasses - RENAL Hx Chronic Kidney Disease: No - ENDOCRINE/METABOLIC Hx Endocrine Disorders: Yes Hx Diabetes Mellitus Type 2: Yes - HEMATOLOGICAL/ONCOLOGICAL Hx Blood Disorders: Yes Hx AIDS: No Hx Anemia: Yes Hx Human Immunodeficiency Virus (HIV): No - INTEGUMENTARY Hx Dermatological Problems: No - MUSCULOSKELETAL/RHEUMATOLOGICAL Hx Musculoskeletal Disorders: Yes Hx Arthritis: Yes Hx Falls: No Hx Osteoporosis: Yes - GASTROINTESTINAL Hx Gastrointestinal Disorders: Yes Hx Diverticulitis: Yes Hx Gastritis: Yes - GENITOURINARY/GYNECOLOGICAL Hx Genitourinary Disorders: No - PSYCHIATRIC Hx Psychophysiologic Disorder: Yes Hx Anxiety: Yes Hx Depression: Yes Hx Substance Use: No - SURGICAL HISTORY Hx Surgeries: Yes Hx Cholecystectomy: Yes - ANESTHESIA Hx Anesthesia: Yes Hx Anesthesia Reactions: No Hx Malignant Hyperthermia: No Has any member of the family had a problem w/ anesthesia?: No Meds Allergies/Adverse Reactions: Allergies Allergy/AdvReac Type Severity Reaction Status Date / Time aspirin Allergy SHORTNESS Verified 04/12/18 18:11 OF BREATH azithromycin [From Zithromax] Allergy RASH Verified 04/12/18 18:11 budesonide [From Symbicort] Allergy RASH Verified 04/12/18 18:11 calcium Allergy RASH Verified 04/12/18 18:11 ciprofloxacin [From Cipro] Allergy ITCHING Verified 04/12/18 18:11 ciprofloxacin HCl Allergy ITCHING Verified 04/12/18 18:11 [From Cipro] codeine Allergy SHORTNESS Verified 04/12/18 18:11 OF BREATH formoterol fumarate Allergy RASH Verified 04/12/18 18:11 [From Symbicort] iodine Allergy RASH Verified 04/12/18 18:11 latex Allergy RASH Verified 04/12/18 18:11 lidocaine Allergy unknown Verified 04/12/18 18:11 Penicillins Allergy RASH Verified 04/12/18 18:11 Sulfa (Sulfonamide Allergy RASH Verified 04/12/18 18:11 Antibiotics) tetracycline Allergy RASH Verified 04/12/18 18:11 cranberry AdvReac DIARRHEA Verified 04/12/18 18:11 dicyclomine [From Bentyl] AdvReac VOMITING Verified 08/22/18 06:40 erthromycin Allergy RASH Uncoded 04/12/18 18:11 iv contrast Allergy RASH Uncoded 08/21/18 20:17 Physical Exam - Constitutional Appears: No Acute Distress - Head Exam Head Exam: NORMAL INSPECTION - Eye Exam Eye Exam: PERRL - ENT Exam Additional comments: Nose congested - Neck Exam Neck exam: Positive for: Normal Inspection - Respiratory Exam Respiratory Exam: NORMAL BREATHING PATTERN - Cardiovascular Exam Cardiovascular Exam: REGULAR RHYTHM - GI/Abdominal Exam GI & Abdominal Exam: Diminished Bowel Sounds, Tenderness (mild LLQ). absent: Guarding, Rebound - Extremities Exam Extremities exam: Positive for: normal inspection - Back Exam Back exam: NORMAL INSPECTION - Neurological Exam Neurological exam: Alert, Oriented x3 (No motor/sensory deficit.) - Psychiatric Exam Psychiatric exam: Anxious - Skin Skin Exam: Warm Results - Vital Signs Recent Vital Signs: Last Vital Signs Temp 97.7 F 08/22/18 11:58 Pulse 88 08/22/18 12:53 Resp 18 08/22/18 12:53 BP 130/73 08/22/18 11:58 Pulse Ox 100 08/22/18 12:35 reviewed Trae - Labs Result Diagrams: 08/21/18 19:16 08/21/18 19:16 Labs: Laboratory Results - last 24 hr 08/21/18 08/21/18 08/21/18 07:00 19:16 19:16 WBC 4.8 RBC 4.80 Hgb 13.5 D Hct 39.7 MCV 82.7 D MCH 28.2 MCHC 34.1 RDW 13.4 Plt Count 167 MPV 7.2 Neut % (Auto) 66.6 Lymph % (Auto) 27.3 [place] % (Auto) 5.1 Eos % (Auto) 0.7 Baso % (Auto) 0.3 Neut # (Auto) 3.2 Lymph # (Auto) 1.3 [place] # (Auto) 0.2 Eos # (Auto) 0.0 Baso # (Auto) 0.0 Sodium 142 Potassium 3.8 Chloride 101 Carbon Dioxide 30 Anion Gap 15 BUN 9 Creatinine 0.6 L Est GFR ( Amer) > 60 Est GFR (Non-Af Amer) > 60 POC Glucose (mg/dL) Random Glucose 101 Calcium 9.6 Total Bilirubin 0.6 AST 28 ALT 25 Alkaline Phosphatase 65 Total Protein 7.9 Albumin 4.6 Globulin 3.3 Albumin/Globulin Ratio 1.4 Urine Color Straw Urine Clarity Clear Urine pH 7.0 Ur Specific [place] 1.005 Urine Protein Negative Urine Glucose (UA) Neg Urine Ketones Negative Urine Blood Moderate Urine Nitrate Negative Urine Bilirubin Negative Urine Urobilinogen 0.2-1.0 Ur Leukocyte Esterase Trace Urine RBC (Auto) < 1 Urine Microscopic WBC 1 Ur Squamous Epith Cells < 1 08/21/18 08/22/18 08/22/18 19:49 06:04 08:27 WBC RBC Hgb Hct MCV MCH MCHC RDW Plt Count MPV Neut % (Auto) Lymph % (Auto) [place] % (Auto) Eos % (Auto) Baso % (Auto) Neut # (Auto) Lymph # (Auto) [place] # (Auto) Eos # (Auto) Baso # (Auto) Sodium Potassium Chloride Carbon Dioxide Anion Gap BUN Creatinine Est GFR ( Amer) Est GFR (Non-Af Amer) POC Glucose (mg/dL) 98 102 122 H Random Glucose Calcium Total Bilirubin AST ALT Alkaline Phosphatase Total Protein Albumin Globulin Albumin/Globulin Ratio Urine Color Urine Clarity Urine pH Ur Specific [place] Urine Protein Urine Glucose (UA) Urine Ketones Urine Blood Urine Nitrate Urine Bilirubin Urine Urobilinogen Ur Leukocyte Esterase Urine RBC (Auto) Urine Microscopic WBC Ur Squamous Epith Cells 08/22/18 12:12 WBC RBC Hgb Hct MCV MCH MCHC RDW Plt Count MPV Neut % (Auto) Lymph % (Auto) [place] % (Auto) Eos % (Auto) Baso % (Auto) Neut # (Auto) Lymph # (Auto) [place] # (Auto) Eos # (Auto) Baso # (Auto) Sodium Potassium Chloride Carbon Dioxide Anion Gap BUN Creatinine Est GFR ( Amer) Est GFR (Non-Af Amer) POC Glucose (mg/dL) 121 H Random Glucose Calcium Total Bilirubin AST ALT Alkaline Phosphatase Total Protein Albumin Globulin Albumin/Globulin Ratio Urine Color Urine Clarity Urine pH Ur Specific [place] Urine Protein Urine Glucose (UA) Urine Ketones Urine Blood Urine Nitrate Urine Bilirubin Urine Urobilinogen Ur Leukocyte Esterase Urine RBC (Auto) Urine Microscopic WBC Ur Squamous Epith Cells reviewed J.P. - Imaging and Cardiology CT scan - abdomen Status: Report reviewed by me (J.P.) CT scan - pelvis Status: Report reviewed by me (J.P.) Assessment & Plan (1) Abdominal pain Status: Acute Priority: High Comment: Diverticulitis/ Colitis r/o Neoplasm (2) Diverticulitis Status: Acute Priority: High (3) IBS (irritable bowel syndrome) Status: Chronic Priority: Medium (4) DMII (diabetes mellitus, type 2) Status: Resolved Priority: Medium (5) HTN (hypertension) Status: Chronic Priority: Medium (6) COPD (chronic obstructive pulmonary disease) Status: Chronic Priority: Medium (7) Anxiety Status: Chronic Priority: Medium - Assessment and Plan (Free Text) Plan: CXR, Blood C-S, Flagyl, Protonix, Xanax, Duoneb, Fluid IV and rest of Tx. GI consult - Date & Time Date: 08/22/18 Time: 12:00
[2018-08-22] MEDS: Albuterol 0.083% Inhal Sol (2.5 mg/3 mL) UD IH SCH ×2 (14:40→19:22)
--- NOTE | 2018-08-22 15:00 | CT ---
Date of service: 08/21/2018 PROCEDURE: CT Abdomen and Pelvis with contrast HISTORY: LLQ pain COMPARISON: Abdomen pelvis CT without contrast 08/05/2018. TECHNIQUE: Helical CT of the abdomen and pelvis was performed without oral or intravenous contrast as per referring physician request. Coronal and sagittal reformats were generated. Radiation dose: Total exam DLP = 234.96 mGy-cm. This CT exam was performed using one or more of the following dose reduction techniques: Automated exposure control, adjustment of the mA and/or kV according to patient size, and/or use of iterative reconstruction technique. FINDINGS: LOWER THORAX: Trace fibrosis lingula base. LIVER: Unremarkable. No gross lesion or ductal dilatation. GALLBLADDER AND BILE DUCTS: Prior cholecystectomy apparent. No gross common bile duct dilatation. PANCREAS: Atrophic pancreas reiterated, no acute pathology related. SPLEEN: Unremarkable. ADRENALS: Unremarkable. No mass. KIDNEYS AND URETERS: Unremarkable. No hydronephrosis. No solid mass. VASCULATURE: Nonaneurysmal abdominal aortic calcific atherosclerotic changes are identified. BOWEL: Bowel is not obstructed. Limited diverticular changes are seen at the sigmoid colon with thickening at the mid sigmoid segment and local pericolic reaction suspicious for diverticulitis. Underlying neoplasm is not excluded here. No abscess or free intra peritoneal gas collection. There is questionable rectal thickening and subcutaneous fat deposition at the sigmoid colon and rectum may indicate underlying chronic inflammatory bowel process. Limited thickening of the cecum/send as proximal ascending colon is questioned though this could reflect residual retained fecal material. No definite pericolic reaction here. Opacified small bowel is unremarkable. APPENDIX: Appendix appears upper limits normal caliber but no periappendiceal reaction is associated. Clinically correlate for appendicitis nevertheless. PERITONEUM: Unremarkable. No free fluid. No free air. LYMPH NODES: Unremarkable. No enlarged lymph nodes. BLADDER: Unremarkable. REPRODUCTIVE: Unremarkable. BONES: Levoscoliotic thoracolumbar spinal deformity reiterated. OTHER FINDINGS: None. IMPRESSION: 1. Findings most compatible with mid sigmoid diverticulitis without abscess or free intra peritoneal gas collection evident. No ascites. Other infectious or inflammatory causes of colitis or possible as well as neoplasm. Follow-up recommended. Underlying chronic proctocolitis laboratory process not completely excluded as per above. 2. Borderline thickening of the upper cecum and proximal ascending colon. No pericolic reaction related. Consider follow-up colonoscopy. 3. Prior cholecystectomy reiterated. 4. Prominent appendix but without definite periappendiceal reaction to suggest acute appendicitis. Clinically correlate nevertheless. Preliminary report provided by Cl, 08/22/2018, 12:14 a.m..
[2018-08-22] MEDS: Pantoprazole 20 mg EC Tab PO SCH (16:38)
[2018-08-23] MEDS: Albuterol 0.083% Inhal Sol (2.5 mg/3 mL) UD IH SCH ×3 (07:49→19:09)
[2018-08-23] MEDS: metroNIDAZOLE 500mg/100ml NS 100 ML IVPB SCH ×2 (08:35→15:13)
[2018-08-23] MEDS: Olopatadine 0.1% Opht SOLN OU SCH (08:36)
[2018-08-23] MEDS: Pantoprazole 20 mg EC Tab PO SCH ×2 (08:38→17:30)
--- NOTE | 2018-08-23 12:35 | CP.PCM.PN ---
Subjective - Date & Time of Evaluation Date of Evaluation: 08/23/18 Time of Evaluation: 12:34 - Subjective Subjective: no overnight events Objective - Vital Signs/Intake and Output Vital Signs (last 24 hours): Temp Pulse Resp BP Pulse Ox 97.7 F 80 18 115/58 L 97 08/23/18 12:00 08/23/18 12:00 08/23/18 12:00 08/23/18 12:00 08/23/18 12:00 - Medications Medications: Current Medications Albuterol Sulfate (Albuterol 0.083% Inhal Tila (2.5 Mg/3 Ml) Ud) 2.5 mg IH RTID [facility] Last Admin: 08/23/18 07:49 Dose: 2.5 mg Albuterol/Ipratropium (Duoneb 3 Mg/0.5 Mg (3 Ml) Ud) 3 ml INH RQ4 PRN PRN Reason: Shortness of Breath Last Admin: 08/22/18 07:59 Dose: 3 ml Alprazolam (Xanax) 0.5 mg PO BID PRN PRN Reason: Anxiety Last Admin: 08/23/18 09:06 Dose: 0.5 mg Amlodipine Besylate (Norvasc) 2.5 mg PO DAILY PRN PRN Reason: Systolic Blood Pressure Clonidine HCl (Catapres) 0.1 mg PO DAILY PRN PRN Reason: hypertension Docusate Sodium (Colace) 100 mg PO BID [facility] Last Admin: 08/23/18 08:36 Dose: Not Given Home Med (Albuterol/Ipratropium [Combivent Respimat]) 1 puff INH QID [facility] Metronidazole (Flagyl 500mg/100ml Ns) 100 mls @ 100 mls/hr IVPB Q8H [facility]; Protocol Last Admin: 08/23/18 08:35 Dose: 100 mls/hr Losartan Potassium (Cozaar) 100 mg PO BID [facility] Last Admin: 08/23/18 08:37 Dose: Not Given Meclizine HCl (Antivert) 25 mg PO BID PRN PRN Reason: Dizziness Mirtazapine (Remeron) 15 mg PO HS [facility] Last Admin: 08/22/18 23:01 Dose: 15 mg Nateglinide (Starlix) 60 mg PO BID [facility] Last Admin: 08/23/18 08:38 Dose: Not Given Olopatadine HCl (Patanol 0.1% Opht Soln) 1 drop OU DAILY [facility] Last Admin: 08/23/18 08:36 Dose: 1 drop Pantoprazole Sodium (Protonix Ec Tab) 20 mg PO BID [facility] Last Admin: 08/23/18 08:38 Dose: 20 mg - Labs Labs: 08/21/18 19:16 08/21/18 19:16 - Respiratory Exam Respiratory Exam: NORMAL BREATHING PATTERN - Cardiovascular Exam Cardiovascular Exam: REGULAR RHYTHM - GI/Abdominal Exam GI & Abdominal Exam: Soft, Normal Bowel Sounds Assessment and Plan - Assessment and Plan (Free Text) Assessment: 78 yo female with diverticulitis doing well abx ADAT dc planning colonoscopy once acute process resolves
--- NOTE | 2018-08-23 14:40 | CP.PCM.CON ---
History of Present Illness - History of Present Illness History of Present Illness: Infectious disease consultation note Asked to see this patient at the request of Dr. Reardon for diverticulitis and help with antibiotic management in a patient with multiple antibiotic allergies. HPI Patient is a 78-year-old female with multiple medical conditions including asthma, COPD, diabetes type 2, hyperlipidemia, irritable bowel syndrome, diverticulitis who was admitted for complaints of abdominal pain that radiated to left lower quadrant for about 4 days prior to admission. She also complained of nausea and constipation. Apparently patient had been taking prune juice, and OM and suppositories at home with no relief of constipation. Patient states that she has had bowel movement since admission here and that she does feel better compared to her admission. She states her abdominal pain has improved and her current and her only current complaint is nausea and dizziness. She denies any fever or chills, denies any dysuria, denies any cough or shortness of breath, denies any chest pain. Patient has had multiple previous admissions for diverticulitis flare. Upon further questioning about her antibiotic allergies she explains that with erythromycin and Zithromax she gets rash and itching. She also states when she was 18 years old she got one injection [place] penicillin [place] and she developed full body rash with hives and itching. She is not sure if she has ever tried cephalosporins in the past. Also she explains that when she was given Cipro she did not have full body rash or any trouble with her breathing however at the site of the IV site where she was getting Cipro she developed redness and the nurse had told her that that was an allergic reaction. Hence she states she is not sure if she is allergic to Cipro. Pt denied: Fever, chills, vomiting, diarrhea, urinary symptoms, CP, pal pitations, syncope, SOB, cough, sick contact, recent travel out of [place]. CT Abd/Pelvis: Diverticulitis, Colitis, r/o Neoplasm Review of Systems - Review of Systems Review of Systems: Review of systems Patient denies any fever and denies any chills, complains of nausea but no vomiting, states she had lower abdominal pain extending to the left lower quadrant but has improved dramatically since admission, denies any cough or sh ortness of breath, denies any chest pain, denies any dysuria, complains of constipation prior to arrival however she has had bowel movement since admission. Past Patient History - Infectious Disease Hx of Infectious Diseases: None - Past Medical History & Family History Past Medical History?: Yes - Past Social History Smoking Status: Never Smoked Alcohol: None Drugs: Denies Home Situation {Lives}: Alone - CARDIAC Hx Cardiac Disorders: Yes Hx Hypercholesterolemia: Yes Hx Hypertension: Yes - PULMONARY Hx Respiratory Disorders: Yes Hx Asthma: Yes Hx Chronic Obstructive Pulmonary Disease (COPD): Yes Hx Emphysema: Yes - NEUROLOGICAL Hx Neurological Disorder: Yes Hx Migraine: Yes - HEENT Hx HEENT Problems: Yes Other/Comment: Uses eyeglasses - RENAL Hx Chronic Kidney Disease: No - ENDOCRINE/METABOLIC Hx Endocrine Disorders: Yes Hx Diabetes Mellitus Type 2: Yes - HEMATOLOGICAL/ONCOLOGICAL Hx Blood Disorders: Yes - INTEGUMENTARY Hx Dermatological Problems: No - MUSCULOSKELETAL/RHEUMATOLOGICAL Hx Musculoskeletal Disorders: Yes Hx Arthritis: Yes Hx Falls: No Hx Osteoporosis: Yes - GASTROINTESTINAL Hx Gastrointestinal Disorders: Yes Hx Diverticulitis: Yes Hx Gastritis: Yes - GENITOURINARY/GYNECOLOGICAL Hx Genitourinary Disorders: No - PSYCHIATRIC Hx Psychophysiologic Disorder: Yes Hx Anxiety: Yes Hx Depression: Yes Hx Substance Use: No - SURGICAL HISTORY Hx Surgeries: Yes Hx Cholecystectomy: Yes - ANESTHESIA Hx Anesthesia: Yes Hx Anesthesia Reactions: No Hx Malignant Hyperthermia: No Has any member of the family had a problem w/ anesthesia?: No Meds Allergies/Adverse Reactions: Allergies Allergy/AdvReac Type Severity Reaction Status Date / Time aspirin Allergy SHORTNESS Verified 04/12/18 18:11 OF BREATH azithromycin [From Zithromax] Allergy RASH Verified 04/12/18 18:11 budesonide [From Symbicort] Allergy RASH Verified 04/12/18 18:11 calcium Allergy RASH Verified 04/12/18 18:11 ciprofloxacin [From Cipro] Allergy ITCHING Verified 04/12/18 18:11 ciprofloxacin HCl Allergy ITCHING Verified 04/12/18 18:11 [From Cipro] codeine Allergy SHORTNESS Verified 04/12/18 18:11 OF BREATH formoterol fumarate Allergy RASH Verified 04/12/18 18:11 [From Symbicort] iodine Allergy RASH Verified 04/12/18 18:11 latex Allergy RASH Verified 04/12/18 18:11 lidocaine Allergy unknown Verified 04/12/18 18:11 Penicillins Allergy RASH Verified 04/12/18 18:11 Sulfa (Sulfonamide Allergy RASH Verified 04/12/18 18:11 Antibiotics) tetracycline Allergy RASH Verified 04/12/18 18:11 cranberry AdvReac DIARRHEA Verified 04/12/18 18:11 dicyclomine [From Bentyl] AdvReac VOMITING Verified 08/22/18 06:40 erthromycin Allergy RASH Uncoded 04/12/18 18:11 iv contrast Allergy RASH Uncoded 08/21/18 20:17 - Medications Medications: Current Medications Albuterol Sulfate (Albuterol 0.083% Inhal Tila (2.5 Mg/3 Ml) Ud) 2.5 mg IH RTID [facility] Last Admin: 08/23/18 13:20 Dose: Not Given Albuterol/Ipratropium (Duoneb 3 Mg/0.5 Mg (3 Ml) Ud) 3 ml INH RQ4 PRN PRN Reason: Shortness of Breath Last Admin: 08/22/18 07:59 Dose: 3 ml Alprazolam (Xanax) 0.5 mg PO BID PRN PRN Reason: Anxiety Last Admin: 08/23/18 09:06 Dose: 0.5 mg Amlodipine Besylate (Norvasc) 2.5 mg PO DAILY PRN PRN Reason: Systolic Blood Pressure Clonidine HCl (Catapres) 0.1 mg PO DAILY PRN PRN Reason: hypertension Docusate Sodium (Colace) 100 mg PO BID [facility] Last Admin: 08/23/18 08:36 Dose: Not Given Home Med (Albuterol/Ipratropium [Combivent Respimat]) 1 puff INH QID [facility] Metronidazole (Flagyl 500mg/100ml Ns) 100 mls @ 100 mls/hr IVPB Q8H [facility]; Protocol Last Admin: 08/23/18 08:35 Dose: 100 mls/hr Meclizine HCl (Antivert) 25 mg PO BID PRN PRN Reason: Dizziness Mirtazapine (Remeron) 15 mg PO HS [facility] Last Admin: 08/22/18 23:01 Dose: 15 mg Olopatadine HCl (Patanol 0.1% Opht Soln) 1 drop OU DAILY [facility] Last Admin: 08/23/18 08:36 Dose: 1 drop Ondansetron HCl (Zofran Inj) 4 mg IVP Q4 PRN PRN Reason: Nausea/Vomiting Last Admin: 08/23/18 13:07 Dose: 4 mg Pantoprazole Sodium (Protonix Ec Tab) 20 mg PO BID [facility] Last Admin: 08/23/18 08:38 Dose: 20 mg Physical Exam - Constitutional Appears: No Acute Distress - Head Exam Head Exam: ATRAUMATIC - Eye Exam Eye Exam: EOMI, PERRL - ENT Exam ENT Exam: Normal Oropharynx - Neck Exam Neck exam: Positive for: Full Rom - Respiratory Exam Respiratory Exam: Clear to Auscultation Bilateral, NORMAL BREATHING PATTERN - Cardiovascular Exam Cardiovascular Exam: RRR, +S1, +S2 - GI/Abdominal Exam GI & Abdominal Exam: Normal Bowel Sounds, Soft Additional comments: ND, NT - Extremities Exam Extremities exam: Positive for: normal inspection - Neurological Exam Neurological exam: Alert, Oriented x3 Results - Vital Signs Recent Vital Signs: Last Vital Signs Temp 97.7 F 08/23/18 12:00 Pulse 80 08/23/18 12:00 Resp 18 08/23/18 12:00 BP 115/58 L 08/23/18 12:00 Pulse Ox 97 08/23/18 12:00 - Labs Result Diagrams: 08/21/18 19:16 08/21/18 19:16 Labs: Laboratory Results - last 24 hr 08/22/18 08/22/18 08/23/18 16:08 21:28 05:26 POC Glucose (mg/dL) 177 H 112 H 137 H 08/23/18 08/23/18 09:57 11:14 POC Glucose (mg/dL) 116 H 135 H Microbiology 08/22/18 01:45 Blood Blood Culture - Preliminary NO GROWTH AFTER 24 HOURS 08/22/18 01:00 Blood Blood Culture - Preliminary NO GROWTH AFTER 24 HOURS Accession No. : [id number] Patient Name / ID : STEFANIE LAMBERT / [id number] Exam Date : 08/21/2018 23:11:35 ( Approved ) Study Comment : Sex / Age : F / 78Y Creator : John Blake MD Dictator : John Blake MD Male Infertility Specialist : Filenet Architect : John Blake MD Approver2 : Report Date : 08/22/2018 14:57:05 My Comment : Date of service: 08/21/2018 PROCEDURE: CT Abdomen and Pelvis with contrast HISTORY: LLQ pain COMPARISON: Abdomen pelvis CT without contrast 08/05/2018. TECHNIQUE: Helical CT of the abdomen and pelvis was performed without oral or intravenous contrast as per referring physician request. Coronal and sagittal reformats were generated. Radiation dose: Total exam DLP = 234.96 mGy-cm. This CT exam was performed using one or more of the following dose reduction techniques: Automated exposure control, adjustment of the mA and/or kV according to patient size, and/or use of iterative reconstruction technique. FINDINGS: LOWER THORAX: Trace fibrosis lingula base. LIVER: Unremarkable. No gross lesion or ductal dilatation. GALLBLADDER AND BILE DUCTS: Prior cholecystectomy apparent. No gross common bile duct dilatation. PANCREAS: Atrophic pancreas reiterated, no acute pathology related. SPLEEN: Unremarkable. ADRENALS: Unremarkable. No mass. KIDNEYS AND URETERS: Unremarkable. No hydronephrosis. No solid mass. VASCULATURE: Nonaneurysmal abdominal aortic calcific atherosclerotic changes are identified. BOWEL: Bowel is not obstructed. Limited diverticular changes are seen at the sigmoid colon with thickening at the mid sigmoid segment and local pericolic reaction suspicious for diverticulitis. Underlying neoplasm is not excluded here. No abscess or free intra peritoneal gas collection. There is questionable rectal thickening and subcutaneous fat deposition at the sigmoid colon and rectum may indicate underlying chronic inflammatory bowel process. Limited thickening of the cecum/send as proximal ascending colon is questioned though this could reflect residual retained fecal material. No definite pericolic reaction here. Opacified small bowel is unremarkable. APPENDIX: Appendix appears upper limits normal caliber but no periappendiceal reaction is associated. Clinically correlate for appendicitis nevertheless. PERITONEUM: Unremarkable. No free fluid. No free air. LYMPH NODES: Unremarkable. No enlarged lymph nodes. BLADDER: Unremarkable. REPRODUCTIVE: Unremarkable. BONES: Levoscoliotic thoracolumbar spinal deformity reiterated. OTHER FINDINGS: None. IMPRESSION: 1. Findings most compatible with mid sigmoid diverticulitis without abscess or free intra peritoneal gas collection evident. No ascites. Other infectious or inflammatory causes of colitis or possible as well as neoplasm. Follow-up recommended. Underlying chronic proctocolitis laboratory process not completely excluded as per above. 2. Borderline thickening of the upper cecum and proximal ascending colon. No pericolic reaction related. Consider follow-up colonoscopy. 3. Prior cholecystectomy reiterated. 4. Prominent appendix but without definite periappendiceal reaction to suggest acute appendicitis. Clinically correlate nevertheless. Preliminary report provided by Cl, 08/22/2018, 12:14 a.m.. Assessment & Plan (1) Diverticulitis Status: Acute Priority: High (2) Abdominal discomfort Status: Acute - Assessment and Plan (Free Text) Assessment: Assessment and plan 78-year-old female with past medical history of asthma and COPD and diverticulitis who is admitted with abdominal pain and nausea and found to have mild case of diverticulitis based on her CT report. Patient is clinically improved. She remains afebrile. She has normal white blood cell count. Blood culturenegative x2 Plan Advised to continue with IV Flagyl since patient has tolerated this well and she has clinically improved. Check WBC count in a.m. May benefit from addition of Cipro, however may need to premedicate patient with Benadryl prior to giving IV Cipro. All labs and imaging and chart notes were reviewed. All above discussed with patient at length and she verbalized full understanding of all above and she is agreeable that if clinically needed be to start her on a trial of an antibiotic she would be willing to try this with close observation. Thank you for allowing me to take part in the care of this patient.
--- NOTE | 2018-08-23 14:42 | CP.PCM.PN ---
Subjective - Date & Time of Evaluation Date of Evaluation: 08/23/18 Time of Evaluation: 11:20 - Subjective Subjective: F/U Abdominal pain Continue with tenderness LLQ, nausea Objective - Vital Signs/Intake and Output Vital Signs (last 24 hours): Temp Pulse Resp BP Pulse Ox 97.7 F 80 18 115/58 L 97 08/23/18 12:00 08/23/18 12:00 08/23/18 12:00 08/23/18 12:00 08/23/18 12:00 - Medications Medications: Current Medications Albuterol Sulfate (Albuterol 0.083% Inhal Tila (2.5 Mg/3 Ml) Ud) 2.[address] [facility] Last Admin: 08/23/18 13:20 Dose: Not Given Albuterol/Ipratropium (Duoneb 3 Mg/0.5 Mg (3 Ml) Ud) 3 ml INH RQ4 PRN PRN Reason: Shortness of Breath Last Admin: 08/22/18 07:59 Dose: 3 ml Alprazolam (Xanax) 0.5 mg PO BID PRN PRN Reason: Anxiety Last Admin: 08/23/18 09:06 Dose: 0.5 mg Amlodipine Besylate (Norvasc) 2.5 mg PO DAILY PRN PRN Reason: Systolic Blood Pressure Clonidine HCl (Catapres) 0.1 mg PO DAILY PRN PRN Reason: hypertension Docusate Sodium (Colace) [address] [facility] Last Admin: 08/23/18 08:36 Dose: Not Given Home Med (Albuterol/Ipratropium [Combivent Respimat]) 1 puff INH QID [facility] Metronidazole (Flagyl 500mg/100ml Ns) 100 mls @ 100 mls/hr IVPB Q8H [facility]; Protocol Last Admin: 08/23/18 08:35 Dose: 100 mls/hr Meclizine HCl (Antivert) 25 mg PO BID PRN PRN Reason: Dizziness Mirtazapine (Remeron) [address] [facility] Last Admin: 08/22/18 23:01 Dose: 15 mg Olopatadine HCl (Patanol 0.1% Opht Soln) 1 drop OU DAILY [facility] Last Admin: 08/23/18 08:36 Dose: 1 drop Ondansetron HCl (Zofran Inj) 4 mg IVP Q4 PRN PRN Reason: Nausea/Vomiting Last Admin: 08/23/18 13:07 Dose: 4 mg Pantoprazole Sodium (Protonix Ec Tab) 20 mg PO BID [facility] Last Admin: 08/23/18 08:38 Dose: 20 mg - Labs Labs: 08/21/18 19:16 08/21/18 19:16 - Constitutional Appears: No Acute Distress - Head Exam Head Exam: NORMAL INSPECTION - Eye Exam Eye Exam: PERRL - ENT Exam ENT Exam: Normal Exam - Neck Exam Neck Exam: Normal Inspection - Respiratory Exam Respiratory Exam: NORMAL BREATHING PATTERN - Cardiovascular Exam Cardiovascular Exam: REGULAR RHYTHM - GI/Abdominal Exam GI & Abdominal Exam: Tenderness (LLQ), Normal Bowel Sounds. absent: Guarding, Rebound - Extremities Exam Extremities Exam: Normal Inspection - Back Exam Back Exam: NORMAL INSPECTION - Neurological Exam Neurological Exam: Alert, Oriented x3. absent: Motor Sensory Deficit - Psychiatric Exam Psychiatric exam: Anxious - Skin Skin Exam: Warm Assessment and Plan (1) Abdominal pain Status: Acute (2) Diverticulitis Status: Acute (3) IBS (irritable bowel syndrome) Status: Chronic (4) HTN (hypertension) Status: Chronic (5) COPD (chronic obstructive pulmonary disease) Status: Chronic (6) Anxiety Status: Chronic - Assessment and Plan (Free Text) Plan: Continue Zofran , clear fluid and rest of tx. GI and ID consult appreciated.
[2018-08-23] MEDS: Albuterol-Ipratrop 3 mg / 0.5 (3 ml) UD INH PRN ×2 (17:43→21:42)
--- NOTE | 2018-08-24 00:16 | CON ---
DATE: 08/23/2018 REFERRING PHYSICIAN: Colby Reardon MD REASON FOR CONSULTATION: Abdominal pain. HISTORY OF PRESENT ILLNESS: This is a pleasant 78-year-old female with numerous admissions for identical complaints, now has mostly pain in the left lower quadrant, some rectal bleeding which is on and off and pain as well with constipation and loose diarrhea. The patient has some bloating and nausea as well. No fevers or chills. Currently lying in bed comfortably in no apparent distress. PAST MEDICAL HISTORY: As above. PAST SURGICAL HISTORY: As Above. MEDICATIONS: Reviewed. REVIEW OF SYSTEMS: All other systems have been reviewed and negative apart from the HPI. PHYSICAL EXAMINATION: VITAL SIGNS: Here in the hospital are grossly unremarkable. GENERAL: This is a pleasant elderly appearing female, lying in bed comfortably, in no apparent distress. HEENT: Head is normocephalic and atraumatic. Eyes, pupils are equally reactive to light bilaterally. No conjunctival pallor or icterus. NECK: Supple. Normal range of motion. No lymphadenopathy appreciated. LUNGS: Coarse breath sounds bilaterally. HEART: S1 and S2. Regular rate and rhythm. No murmurs appreciated. ABDOMEN: Soft and nontender. Bowel sounds are present. No rebound. No guarding. RECTAL: Deferred. EXTREMITIES: Pulses present bilaterally. SKIN: Warm, dry and intact. NEUROLOGIC: A and O x3. LABORATORY DATA: Labs and radiology have been reviewed. WBC is 4.3 and hemoglobin stable. CAT scan is done, result pending. ASSESSMENT AND PLAN: This is a 78-year-old female with questionable colitis and diverticulitis. Plan for official read of CT is advised once stable. Advance diet as tolerated. Outpatient colonoscopy. Thank you for the consult. Jeffrey Aguiar MD/ PhD cc: Colby Reardon MD MTDD
[2018-08-24] MEDS: metroNIDAZOLE 500mg/100ml NS 100 ML IVPB SCH ×4 (00:37→23:37)
[2018-08-24 05:58] LABS: EOS # 0.1 K/uL (0.0-0.7); MONO # 0.3 K/uL (0.0-0.8); NEUT # 1.8 K/uL (1.8-7.0)
[2018-08-24 06:43] LABS: BASO % 0.8 % (0.0-2.0); EOS % 1.7 % (0.0-4.0); LYMPH # 1.2 K/uL (1.0-4.3); LYMPH % 34.9 % (20.0-40.0); MEAN CELL VOLUME 83.2 fl (81.0-99.0); MEAN CORPUSCULAR HEMOGLOBIN 28.1 pg (27.0-31.0); MEAN CORPUSCULAR HGB CONC 33.8 g/dL (33.0-37.0); MEAN PLATELET VOLUME 6.9 fl (7.2-11.7); MONO % 8.5 % (0.0-10.0); NEUT % 54.1 % (50.0-75.0); RBC 4.13 Mil/uL (3.80-5.20); WHITE BLOOD COUNT 3.4 K/uL (4.8-10.8)
[2018-08-24 06:45] LABS: HEMOGLOBIN 11.6 g/dL (12.0-16.0)
[2018-08-24] MEDS: Albuterol 0.083% Inhal Sol (2.5 mg/3 mL) UD IH SCH ×3 (07:32→19:42)
[2018-08-24] MEDS: Olopatadine 0.1% Opht SOLN OU SCH (08:44)
[2018-08-24] MEDS: Pantoprazole 20 mg EC Tab PO SCH ×2 (08:44→16:10)
--- NOTE | 2018-08-24 15:43 | CP.PCM.PN ---
Subjective - Date & Time of Evaluation Date of Evaluation: 08/24/18 Time of Evaluation: 09:00 - Subjective Subjective: F/U Abdominal pain Diarrhea, no abdominal pain Objective - Vital Signs/Intake and Output Vital Signs (last 24 hours): Temp Pulse Resp BP Pulse Ox 97.5 F L 81 20 126/62 97 08/24/18 12:19 08/24/18 12:19 08/24/18 12:19 08/24/18 12:19 08/24/18 12:19 - Medications Medications: Current Medications Acetaminophen (Tylenol 325mg Tab) 650 mg PO Q4 PRN PRN Reason: Pain, Mild (1-3) Last Admin: 08/23/18 15:13 Dose: 650 mg Albuterol Sulfate (Albuterol 0.083% Inhal Tila (2.5 Mg/3 Ml) Ud) 2.5 mg IH RTID [facility] Last Admin: 08/24/18 14:10 Dose: 2.5 mg Albuterol/Ipratropium (Duoneb 3 Mg/0.5 Mg (3 Ml) Ud) 3 ml INH RQ4 PRN PRN Reason: Shortness of Breath Last Admin: 08/23/18 21:42 Dose: 3 ml Alprazolam (Xanax) 0.5 mg PO BID PRN PRN Reason: Anxiety Last Admin: 08/24/18 15:03 Dose: 0.5 mg Amlodipine Besylate (Norvasc) 2.5 mg PO DAILY PRN PRN Reason: Systolic Blood Pressure Clonidine HCl (Catapres) 0.1 mg PO DAILY PRN PRN Reason: hypertension Home Med (Albuterol/Ipratropium [Combivent Respimat]) 1 puff INH QID [facility] Metronidazole (Flagyl 500mg/100ml Ns) 100 mls @ 100 mls/hr IVPB Q8H [facility]; Protoc ol Last Admin: 08/24/18 08:45 Dose: 100 mls/hr Meclizine HCl (Antivert) 25 mg PO BID PRN PRN Reason: Dizziness Mirtazapine (Remeron) 15 mg PO HS [facility] Last Admin: 08/24/18 00:37 Dose: 15 mg Olopatadine HCl (Patanol 0.1% Opht Soln) 1 drop OU DAILY [facility] Last Admin: 03/14/19 08:44 Dose: Not Given Ondansetron HCl (Zofran Inj) 4 mg IVP Q4 PRN PRN Reason: Nausea/Vomiting Last Admin: 08/23/18 13:07 Dose: 4 mg Pantoprazole Sodium (Protonix Ec Tab) 20 mg PO BID [facility] Last Admin: 08/24/18 08:44 Dose: 20 mg - Labs Labs: 08/24/18 04:45 08/21/18 19:16 - Constitutional Appears: No Acute Distress - Head Exam Head Exam: NORMAL INSPECTION - Eye Exam Eye Exam: PERRL - ENT Exam Additional comments: Nose congested - Neck Exam Neck Exam: Normal Inspection - Respiratory Exam Respiratory Exam: NORMAL BREATHING PATTERN - Cardiovascular Exam Cardiovascular Exam: REGULAR RHYTHM - GI/Abdominal Exam GI & Abdominal Exam: Soft, Normal Bowel Sounds. absent: Guarding, Tenderness, Rebound - Extremities Exam Extremities Exam: Normal Inspection - Back Exam Back Exam: NORMAL INSPECTION - Neurological Exam Neurological Exam: Alert, Oriented x3. absent: Motor Sensory Deficit - Psychiatric Exam Psychiatric exam: Anxious - Skin Skin Exam: Warm Assessment and Plan (1) Abdominal pain Status: Acute (2) Diverticulitis Status: Acute (3) IBS (irritable bowel syndrome) Status: Chronic (4) HTN (hypertension) Status: Chronic (5) COPD (chronic obstructive pulmonary disease) Status: Chronic (6) Anxiety Status: Chronic - Assessment and Plan (Free Text) Plan: C Diff Ag positive, stool OB negative, trial of regular diet, continue Flagyl IV, DuoNeb, Norvasc, Clonidine and rest of Tx
[2018-08-24 23:53] VITALS: O2SAT 96
[2018-08-25 08:15] VITALS: BP 107/62; PULSE 76; RESP 18; TEMP 97.3
[2018-08-25] MEDS: Albuterol 0.083% Inhal Sol (2.5 mg/3 mL) UD IH SCH ×2 (08:26→13:41)
[2018-08-25] MEDS: Olopatadine 0.1% Opht SOLN OU SCH (08:48)
[2018-08-25] MEDS: Pantoprazole 20 mg EC Tab PO SCH (08:49)
[2018-08-25] MEDS: metroNIDAZOLE 500mg/100ml NS 100 ML IVPB SCH ×2 (10:18→16:02)
--- NOTE | 2018-08-25 11:10 | CP.PCM.PN ---
Subjective - Date & Time of Evaluation Date of Evaluation: 08/25/18 Time of Evaluation: 11:10 - Subjective Subjective: ID note- Pt. seen and examined today. pt. sattes her nausea has resolved and overall she feels better. she states her abdominal pain is almost resolved too and she is being d/c today home. Objective - Vital Signs/Intake and Output Vital Signs (last 24 hours): Temp Pulse Resp BP Pulse Ox 97.3 F L 76 18 107/62 96 08/25/18 08:14 08/25/18 08:14 08/25/18 08:14 08/25/18 08:14 08/25/18 08:14 - Medications Medications: Current Medications Acetaminophen (Tylenol 325mg Tab) 650 mg PO Q4 PRN PRN Reason: Pain, Mild (1-3) Last Admin: 08/23/18 15:13 Dose: 650 mg Albuterol Sulfate (Albuterol 0.083% Inhal Tila (2.5 Mg/3 Ml) Ud) 2.5 mg IH RTID PARKER Last Admin: 08/25/18 08:26 Dose: 2.5 mg Albuterol/Ipratropium (Duoneb 3 Mg/0.5 Mg (3 Ml) Ud) 3 ml INH RQ4 PRN PRN Reason: Shortness of Breath Last Admin: 08/23/18 21:42 Dose: 3 ml Alprazolam (Xanax) 0.5 mg PO BID PRN PRN Reason: Anxiety Last Admin: 08/24/18 22:09 Dose: 0.5 mg Amlodipine Besylate (Norvasc) 2.5 mg PO DAILY PRN PRN Reason: Systolic Blood Pressure Clonidine HCl (Catapres) 0.1 mg PO DAILY PRN PRN Reason: hypertension Home Med (Albuterol/Ipratropium [Combivent Respimat]) 1 puff INH QID PARKER Metronidazole (Flagyl 500mg/100ml Ns) 100 mls @ 100 mls/hr IVPB Q8H PARKER; Protocol Last Admin: 08/25/18 10:18 Dose: 100 mls/hr Meclizine HCl (Antivert) 25 mg PO BID PRN PRN Reason: Dizziness Mirtazapine (Remeron) 15 mg PO HS PARKER Last Admin: 08/24/18 22:09 Dose: 15 mg Olopatadine HCl (Patanol 0.1% Opht Soln) 1 drop OU DAILY [facility] Last Admin: 08/25/18 08:48 Dose: Not Given Ondansetron HCl (Zofran Inj) 4 mg IVP Q4 PRN PRN Reason: Nausea/Vomiting Last Admin: 08/25/18 10:18 Dose: 4 mg Pantoprazole Sodium (Protonix Ec Tab) 20 mg PO BID [facility] Last Admin: 08/25/18 08:49 Dose: 20 mg - Labs Labs: - Additional Findings Additional findings: - Constitutional Appears: No Acute Distress - Head Exam Head Exam: ATRAUMATIC - Eye Exam Eye Exam: EOMI, PERRL - ENT Exam ENT Exam: Normal Oropharynx - Neck Exam Neck exam: Positive for: Full Rom - Respiratory Exam Respiratory Exam: Clear to Auscultation Bilateral, NORMAL BREATHING PATTERN - Cardiovascular Exam Cardiovascular Exam: RRR, +S1, +S2 - GI/Abdominal Exam GI & Abdominal Exam: Normal Bowel Sounds, Soft Additional comments: ND, NT - Extremities Exam Extremities exam: Positive for: normal inspection - Neurological Exam Neurological exam: Alert, Oriented x 3 Laboratory Results - last 72 hr 08/22/18 08/22/18 08/23/18 16:08 21:28 05:26 WBC RBC Hgb Hct MCV MCH MCHC RDW Plt Count MPV Neut % (Auto) Lymph % (Auto) [place] % (Auto) Eos % (Auto) Baso % (Auto) Neut # (Auto) Lymph # (Auto) [place] # (Auto) Eos # (Auto) Baso # (Auto) POC Glucose (mg/dL) 177 H 112 H 137 H Stool Occult Blood C. difficile Ag & Toxin 08/23/18 08/23/18 08/23/18 09:57 11:14 16:14 WBC RBC Hgb Hct MCV MCH MCHC RDW Plt Count MPV Neut % (Auto) Lymph % (Auto) [place] % (Auto) Eos % (Auto) Baso % (Auto) Neut # (Auto) Lymph # (Auto) [place] # (Auto) Eos # (Auto) Baso # (Auto) POC Glucose (mg/dL) 116 H 135 H 88 Stool Occult Blood C. difficile Ag & Toxin 08/23/18 08/24/18 08/24/18 21:30 01:29 01:29 WBC RBC Hgb Hct MCV MCH MCHC RDW Plt Count MPV Neut % (Auto) Lymph % (Auto) [place] % (Auto) Eos % (Auto) Baso % (Auto) Neut # (Auto) Lymph # (Auto) [place] # (Auto) Eos # (Auto) Baso # (Auto) POC Glucose (mg/dL) 102 Stool Occult Blood Negative C. difficile Ag & Toxin Positive antigen 08/24/18 08/24/18 08/24/18 04:45 05:37 11:22 WBC 3.4 L RBC 4.13 Hgb 11.6 L Hct 34.4 MCV 83.2 MCH 28.1 MCHC 33.8 RDW 13.0 Plt Count 131 MPV 6.9 L Neut % (Auto) 54.1 Lymph % (Auto) 34.9 [place] % (Auto) 8.5 Eos % (Auto) 1.7 Baso % (Auto) 0.8 Neut # (Auto) 1.8 Lymph # (Auto) 1.2 [place] # (Auto) 0.3 Eos # (Auto) 0.1 Baso # (Auto) 0.0 POC Glucose (mg/dL) 93 98 Stool Occult Blood C. difficile Ag & Toxin 08/24/18 08/24/18 08/25/18 16:05 21:56 05:17 WBC RBC Hgb Hct MCV MCH MCHC RDW Plt Count MPV Neut % (Auto) Lymph % (Auto) [place] % (Auto) Eos % (Auto) Baso % (Auto) Neut # (Auto) Lymph # (Auto) [place] # (Auto) Eos # (Auto) Baso # (Auto) POC Glucose (mg/dL) 128 H 95 76 Stool Occult Blood C. difficile Ag & Toxin 08/25/18 08/25/18 06:24 10:57 WBC RBC Hgb Hct MCV MCH MCHC RDW Plt Count MPV Neut % (Auto) Lymph % (Auto) [place] % (Auto) Eos % (Auto) Baso % (Auto) Neut # (Auto) Lymph # (Auto) [place] # (Auto) Eos # (Auto) Baso # (Auto) POC Glucose (mg/dL) 155 H 122 H Stool Occult Blood C. difficile Ag & Toxin Microbiology 08/24/18 01:29 Stool Ova and Parasite Concentrate Exam - Final 08/22/18 01:45 Blood Blood Culture - Preliminary NO GROWTH AFTER 3 DAYS 08/22/18 01:00 Blood Blood Culture - Preliminary NO GROWTH AFTER 3 DAYS Assessment and Plan (1) Diverticulitis Status: Acute (2) Abdominal discomfort Status: Acute - Assessment and Plan (Free Text) Assessment: Assessment and plan 78-year-old female with past medical history of asthma and COPD and diverticulitis who is admitted with abdominal pain and nausea and found to have mild case of diverticulitis based on her CT report. Patient is clinically improved. She remains afebrile. She has normal white blood cell count. Blood culturenegative x 2 stool O and P - negative Plan carlosdanish duncan completed her course of IV flagyl here and is clinically mych improved. advised to f/u with her PMD and her GI doc as outpatietn. case was d/w and wants to d/c her on few days of oral flagyl and states pt. was advised to take flagyl after she takes mylanta to prevent any GI issues. . pt. advised if her abd pain returns or any fever or chills to notify her PMD and return to Ed. pt. verbalizes full understanding of all above and agrees with above plan of care.
--- NOTE | 2018-08-25 14:33 | CP.PCM.DIS ---
Provider - Provider Date of Admission: 08/22/18 00:43 Attending physician: Colby Reardon MD Consults: 08/22/18 11:42 Gastroenterology Consult Routine Comment: Consulting Provider: Jeffrey Aguiar Consulting Physician: Jeffrey Aguiar Reason for Consult: llq pain, constipation, proctocolitis 08/22/18 13:21 Case Management Referral Routine Comment: Physician Instructions: Reason For Exam: Reason for Referral: Discharge Planning Social Work Referral Routine Comment: Discharge planning Physician Instructions: Reason For Exam: Discharge planning 08/23/18 12:40 Infectious Disease Consult Routine Comment: Consulting Provider: Christen Mak Consulting Physician: Christen Mak Reason for Consult: acute diverticulitis Time Spent in preparation of Discharge (in minutes): 35 Diagnosis - Discharge Diagnosis (1) Abdominal pain Status: Acute Priority: High (2) Diverticulitis Status: Acute Priority: High (3) IBS (irritable bowel syndrome) Status: Chronic Priority: Medium (4) HTN (hypertension) Status: Chronic Priority: Medium (5) COPD (chronic obstructive pulmonary disease) Status: Chronic Priority: Medium (6) Anxiety Status: Chronic Priority: Medium Hospital Course - Lab Results Lab Results: Micro Results 08/24/18 01:29 Stool Ova and Parasite Concentrate Exam - Final 08/22/18 01:45 Blood Blood Culture - Preliminary NO GROWTH AFTER 3 DAYS 08/22/18 01:00 Blood Blood Culture - Preliminary NO GROWTH AFTER 3 DAYS Most Recent Lab Values WBC 3.4 K/uL (4.8-10.8) L 08/24/18 04:45 RBC 4.13 Mil/uL (3.80-5.20) 08/24/18 04:45 Hgb 11.6 g/dL (12.0-16.0) L 08/24/18 04:45 Hct 34.4 % (34.0-47.0) 08/24/18 04:45 MCV 83.2 fl (81.0-99.0) 08/24/18 04:45 MCH 28.1 pg (27.0-31.0) 08/24/18 04:45 MCHC 33.8 g/dL (33.0-37.0) 08/24/18 04:45 RDW 13.0 % (11.5-14.5) 08/24/18 04:45 Plt Count 131 K/uL (130-400) 08/24/18 04:45 MPV 6.9 fl (7.2-11.7) L 08/24/18 04:45 Neut % (Auto) 54.1 % (50.0-75.0) 08/24/18 04:45 Lymph % (Auto) 34.9 % (20.0-40.0) 08/24/18 04:45 [place] % (Auto) 8.5 % (0.0-10.0) 08/24/18 04:45 Eos % (Auto) 1.7 % (0.0-4.0) 08/24/18 04:45 Baso % (Auto) 0.8 % (0.0-2.0) 08/24/18 04:45 Neut # (Auto) 1.8 K/uL (1.8-7.0) 08/24/18 04:45 Lymph # (Auto) 1.2 K/uL (1.0-4.3) 08/24/18 04:45 [place] # (Auto) 0.3 K/uL (0.0-0.8) 08/24/18 04:45 Eos # (Auto) 0.1 K/uL (0.0-0.7) 08/24/18 04:45 Baso # (Auto) 0.0 K/uL (0.0-0.2) 08/24/18 04:45 Sodium 142 mmol/l (132-148) 08/21/18 19:16 Potassium 3.8 MMOL/L (3.6-5.0) 08/21/18 19:16 Chloride 101 mmol/L (98-107) 08/21/18 19:16 Carbon Dioxide 30 mmol/L (22-30) 08/21/18 19:16 Anion Gap 15 (10-20) 08/21/18 19:16 BUN 9 mg/dl (7-17) 08/21/18 19:16 Creatinine 0.6 mg/dl (0.7-1.2) L 08/21/18 19:16 Est GFR ( Amer) > 60 08/21/18 19:16 Est GFR (Non-Af Amer) > 60 08/21/18 19:16 POC Glucose (mg/dL) 122 mg/dL (65-110) H 08/25/18 10:57 Random Glucose 101 mg/dL (65-105) 08/21/18 19:16 Calcium 9.6 mg/dL (8.4-10.2) 08/21/18 19:16 Total Bilirubin 0.6 mg/dl (0.2-1.3) 08/21/18 19:16 AST 28 U/L (14-36) 08/21/18 19:16 ALT 25 U/L (9-52) 08/21/18 19:16 Alkaline Phosphatase 65 U/L (38-126) 08/21/18 19:16 Total Protein 7.9 G/DL (6.3-8.2) 08/21/18 19:16 Albumin 4.6 g/dL (3.5-5.0) 08/21/18 19:16 Globulin 3.3 gm/dL (2.2-3.9) 08/21/18 19:16 Albumin/Globulin Ratio 1.4 (1.0-2.1) 08/21/18 19:16 Urine Color Straw (YELLOW) 08/21/18 07:00 Urine Clarity Clear (Clear) 08/21/18 07:00 Urine pH 7.0 (5.0-8.0) 08/21/18 07:00 Ur Specific [place] 1.005 (1.003-1.030) 08/21/18 07:00 Urine Protein Negative mg/dL (NEGATIVE) 08/21/18 07:00 Urine Glucose (UA) Neg mg/dL (NEGATIVE) 08/21/18 07:00 Urine Ketones Negative mg/dL (NEGATIVE) 08/21/18 07:00 Urine Blood Moderate (NEGATIVE) 08/21/18 07:00 Urine Nitrate Negative (NEGATIVE) 08/21/18 07:00 Urine Bilirubin Negative (NEGATIVE) 08/21/18 07:00 Urine Urobilinogen 0.2-1.0 mg/dL (0.2-1.0) 08/21/18 07:00 Ur Leukocyte Esterase Trace Nathen/uL (Negative) 08/21/18 07:00 Urine RBC (Auto) < 1 /hpf (0-3) 08/21/18 07:00 Urine Microscopic WBC 1 /hpf (0-5) 08/21/18 07:00 Ur Squamous Epith Cells < 1 /hpf (0-5) 08/21/18 07:00 Stool Occult Blood Negative (NEGATIVE) 08/24/18 01:29 C. difficile Ag & Toxin Positive antigen (NEGATIVE) 08/24/18 01:29 - Date & Time of H&P Date of H&P: 08/22/18 Time of H&P: 12:00 Discharge Exam - Head Exam Head Exam: ATRAUMATIC - Eye Exam Eye Exam: PERRL - ENT Exam Additional comments: Nose congestion - Neck Exam Neck exam: Normal Inspection - Respiratory Exam Respiratory Exam: NORMAL BREATHING PATTERN - Cardiovascular Exam Cardiovascular Exam: REGULAR RHYTHM - GI/Abdominal Exam GI & Abdominal Exam: Normal Bowel Sounds, Soft. absent: Guarding, Rebound, Tenderness - Extremities Exam Extremities exam: normal inspection - Back Exam Back exam: NORMAL INSPECTION - Neurological Exam Neurological exam: Alert, Oriented x3 Additional comments: No motor sensory deficit. - Psychiatric Exam Psychiatric exam: Anxious - Skin Skin Exam: Warm Discharge Plan - Discharge Medications Prescriptions: Metronidazole [Flagyl] 500 mg PO TID #21 tablet - Follow Up Plan Condition: STABLE Disposition: HOME/ ROUTINE Patient education suggested?: Yes Instructions: Low Fiber Diet, Diverticulitis (DC) Additional Instructions: hacer marky con olivares primario y gastroenterologo dentro 1 semana Referrals: Christen Mak MD [Staff Provider] - Jeffrey Aguiar MD, PhD [Staff Provider] - Colby Reardon MD [Family Provider] -
== END 2018-08-25 16:05 | disposition home or self-care (01) | DRG 392 ==
LOC: H.ER 17:57 → H.ERHOLD 08-22 00:43 → H.TEL 08-22 10:46 → H.MEDSURG1 08-24 16:55
PROVIDERS: ADMIT Internal Medicine Pulmonary Disease; ATTEND Internal Medicine Pulmonary Disease
DX: K57.32 Diverticulitis of large intestine without perforation or abscess without bleeding (principal); J43.9 Emphysema, unspecified; E11.9 Type 2 diabetes mellitus without complications; K52.9 Noninfective gastroenteritis and colitis, unspecified; E78.00 Pure hypercholesterolemia, unspecified; E78.5 Hyperlipidemia, unspecified; F41.9 Anxiety disorder, unspecified; I10 Essential (primary) hypertension; K21.9 Gastro-esophageal reflux disease without esophagitis; M81.0 Age-related osteoporosis without current pathological fracture; K58.9 Irritable bowel syndrome, unspecified; Z88.1 Allergy status to other antibiotic agents; Z90.49 Acquired absence of other specified parts of digestive tract; F32.9 Major depressive disorder, single episode, unspecified; G43.909 Migraine, unspecified, not intractable, without status migrainosus; K29.70 Gastritis, unspecified, without bleeding; M19.90 Unspecified osteoarthritis, unspecified site; Z79.899 Other long term (current) drug therapy